=== PATIENT | male | born 1940 | race Caucasian/White ===

== ENCOUNTER 2024-10-16 02:06 | Emergency (ER) | payer MEDICARE, SELFPAY ==
[2024-10-16] VITALS (8 sets, daily range): BP systolic 109–175; BP diastolic 52–83; PULSE 70–82; RESP 8–16; TEMP 36.4; O2SAT 95–100; BMI 20.5
--- NOTE | 2024-10-16 03:12 | EDNOTE_ITS ---
Lower Extremity Injury RME/HPI General Chief Complaint: Extremity Injury, Lower Stated Complaint: LEG PAIN Time Seen by Provider: 10/16/24 03:11 Arrival date/time: 10/16/24 02:06 RME / HPI RME / HPI Narrative: Dr. Daugherty's Main ED Evaluation: 84yo male SAWYER from home presents to the ED for a chief complaint of a fall. Per EMS, patient was walking to the restroom when he slipped and fell just PRESS [employer]AR[employer], landing on his left side. Patient states he does not remember what happened, but endorses having left hip pain, a headache, neck pain, chest pain, and abdominal pain. He denies any N/V, blurred vision or any other associated symptoms. No known allergies. Patient states he had his messina catheter changed yesterday. PMHx: viral myocarditis, CAD s/p stent, HFrEF 30 to 35%, Parkinson's, traumatic ICH s/p craniotomy, history of GI bleeding, multiple skin cancer Related Data Home Medications ?Medication ?Instructions ?Recorded ?Confirmed rasagiline 1 mg tablet (Azilect) 1 mg PO QDAY 03/20/19 11/19/23 pantoprazole 40 mg tablet,delayed 40 mg PO QDAY 03/12/23 11/19/23 release carbidopa 37.5 mg-levodopa 150 See Rx Instructions .Route .COMPLEX 05/15/23 11/19/23 mg-entacapone 200 mg tablet donepezil 5 mg tablet 5 mg PO HS 05/15/23 11/19/23 finasteride 5 mg tablet 5 mg PO QDAY 05/15/23 11/19/23 clopidogrel 75 mg tablet (Plavix) 75 mg PO QDAY 10/26/23 11/19/23 tamsulosin 0.4 mg capsule (Flomax) 0.8 mg PO QDAY 10/26/23 11/19/23 sertraline 150 mg capsule 150 mg PO QDAY 11/19/23 11/19/23 Previous Rx's ?Medication ?Instructions ?Recorded aspirin 81 mg capsule 81 mg PO QDAY #30 caps 10/27/23 ferrous sulfate 325 mg (65 mg 325 mg PO QDAY #60 tabs 10/27/23 iron) tablet ondansetron HCl 4 mg tablet 4 mg PO Q8H PRN nausea and 10/27/23 vomiting #7 tabs Allergies Allergy/AdvReac Type Severity Reaction Status Date / Time No Known Allergies Allergy Verified 11/17/23 20:33 Review of Systems Review of Systems Systems Reviewed: All systems reviewed, normal except as documented Narrative Review of Systems: Gen: No fever, no chills, no weight loss EYES: No discharge, no visual changes, no pain HEENT: No ear pain, no congestion, no sore throat, + neck pain PULM: No shortness of breath, no cough, no congestion CV: + chest pain, no dyspnea on exertion, no palpitations GI: No nausea, no vomiting, no diarrhea, + pain, no constipation : No frequency, no urgency, no dysuria Musc/skel: + hip pain, no back pain Skin: No rash. Warm and dry. Psyc: No hallucinations, no depression Heme/Lymph: No easy bleeding or bruising tendencies Neuro: No weakness, + headache Past Medical History Past Medical History NEUROLOGIC: Positive Neurological Disorders, Cerebrovascular Accident, Parkinson's Disease and Head Trauma; Negative Seizures CARDIAC: Positive Cardiac Disorders, Hypercholesterolemia, Congestive Heart Failure and Hypertension RESPIRATORY: Negative Chronic Obstructive Pulmonary Disease (COPD), Asthma or Sleep Apnea GASTROINTESTINAL: Positive Gastrointestinal Disorders and Gastroesophageal Reflux Disease GENITOURINARY: Positive Benign Prostatic Hyperplasia; Negative Genitourinary Disorders or Renal Disease MUSCULOSKELETAL: Positive Musculoskeletal Disorders and Arthritis ENT: Positive Deafness and Head Trauma ENDOCRINE: Negative Endocrine Disorders, Diabetes Mellitus Type 1 or Diabetes Mellitus Type 2 HEMATOLOGIC: Positive Anemia; Negative Blood Disorders OTHER HISTORY: Positive Hospitalization, Falls, Blood Transfusions, Chicken Pox and Measles; Negative Autoimmune Disease, Blood Transfusion Reaction, Anesthesia Reactions or Cancer Family History FAMILY HISTORY: Positive Family Cardiac Disorders and Family Cancer; Negative Family Psychiatric Problems, Family Respiratory Disorders, Family Gastrointestinal Problems, Family Surgery or Family Anesthesia Reaction Surgical History SURGICAL: Positive Coronary Stent, Tonsillectomy and Vasectomy; Negative Joint Replacement Social History SMOKING STATUS: Never smoker SECOND HAND EXPOSURE: No SUBSTANCE USE: does not use ED Exam Narrative Physical exam: GEN. APPEARANCE: Patient is awake and alert, but has significant memory loss and does not remember that he fell just prior to arrival. VITALS: All vitals were reviewed and the pulse ox is 99% via 2L/nasal cannula, which is normal according to my interpretation. HEENT: Normocephalic and nontender. Significant memory loss to the left upper and lower eyelids. Left sclera is injected. Pupils are equal to 3 mm and reactive to light and accommodation. No nystagmus. Oral mucosa are moist. Patient has good jaw mobility and strength. NECK: Supple, nontender, no meningismus, no JVD. CHEST: Nontender on palpation, no deformity and no crepitus. CARDIOVASCULAR: Heart regular rhythm no murmur or gallop rub or extra beats; not tachycardic. LUNGS: Clear to auscultation bilaterally with symmetrical chest rise. No laboring tachypnea or wheezing. No intercostal subcostal retraction. No rales and no rhonchi. ABDOMEN: Soft, flat, nontender at all, no guarding or rebound tenderness. There are no abnormal masses palpated. No pulsatile masses or bruits. Active and normal bowel sounds. GENITALIA: Not examined. RECTAL EXAM: Not done. EXTREMITIES: Nontender. No edema. No cyanosis. There's moderate swelling on the lateral aspect of the left hip with shortening and external rotation of the LLE. N/V is intact. He cannot bend his knee. SKIN: Warm and dry, no rashes noted. MUSCULOSKELETAL: No lumbar or midline bony tenderness. There is no CVA tendern ess. No paraspinal muscle spasm or tenderness. NEURO: Cranial nerves II through XII grossly intact. There is no focalization. GCS is 14. PSYCHIATRIC: Patient is in normal mood and affect, cooperative. LYMPHATICS: No major lymphadenopathy noted. Course Quality Measures none Orders Category Date Time Status EKG (ED ONLY) *Do not use* NOW Care 10/16/24 04:39 Completed IV [Insert IV] NOW Care 10/16/24 03:[address] cervical spine wo con Stat Exams 10/16/24 03:[address] facial bones wo con Stat Exams 10/16/24 03:[address] head/brain wo con Stat Exams 10/16/24 03:[address] hip LT wo con Stat Exams 10/16/24 03:49 Taken EKG (ED Only) Stat Exams 10/16/24 04:39 Draft XR femur LT 2V Stat Exams 10/16/24 03:31 Taken XR hip LT w pelvis 2-3V Stat Exams 10/16/24 03:27 Taken CBC Stat Lab 10/16/24 04:27 Completed CMP [Comprehensive Metabolic Panel] Stat Lab 10/16/24 04:27 Completed PT [Prothrombin Time with INR] Stat Lab 10/16/24 04:27 Completed PTT [Partial Thromboplastin Time] Stat Lab 10/16/24 04:27 Completed Type and Screen Stat Lab 10/16/24 04:27 Received Morphine Inj Med 10/16/24 03:33 Discontinued 5 mg IVP X1 ONE Ondansetron Odt [Zofran Odt] Med 10/16/24 03:33 Discontinued 4 mg PO X1 ONE Tranexamic Acid 1,000 mg Ivpb [Tranexamic Acid Ivpb] Med 10/16/24 04:58 Discontinued 1,000 mg in 100 ml IV [id number] levETIRAcetam INJ [Keppra Inj] Med 10/16/24 04:53 Discontinued 1,000 mg IVP X1 ONE Vital Signs Vital signs: Vital Signs Temperature 97.6 F 10/16/24 02:19 Pulse Rate 82 10/16/24 02:19 Respiratory Rate 16 10/16/24 02:19 Blood Pressure 175/64 H 10/16/24 02:19 Pulse Oximetry (%) 99 10/16/24 02:19 Oxygen Delivery Method Nasal Cannula 10/16/24 02:19 Oxygen Flow Rate 2 10/16/24 02:19 Procedures -ED EKG Interpretation #1: Date of EK10/16/24 Rate: 79 Interpretation: Interpreted by me EKG Impression: Normal sinus rhythm, Reserve deviation, No ectopy and Normal intervals Additional EKG comment: Left axis deviation. First-degree AV block. Left bundle branch block. Extremity Injury, Lower MDM Narrative MDM Narrative:: Scribe Attestation: 10/16/24 - Joya Currie am scribing for and in the presence of Dr. Daugherty. Patient was brought in by ambulance from home per request of his who called the ambulance stating that he was found on the floor at his house and unable to get up. Patient apparently got up to go to the bathroom and fell but he cannot recall of the fall. 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 He only complains of left hip pain which started just prior to arrival. He is not aware that he has a big black and blue around his left orbital area and he does not complain of any pain at that area. He denies any blurred vision. On the physical exam he has significant injection of his left sclera with ecchymosis of his left upper and lower eyelids with soft tissue swelling but no lacerations and no deformities. He complains of headache and neck pain and chest pain and abdominal pain however when I touch his chest or abdomen he has no tenderness whatsoever. He denies any nausea vomiting and he denies any shortness of breath or coughing. He has a Messina catheter in due to significant BPH. He has no back pain. His main complaint is pain in his left hip which has significant local swelling on the lateral aspect and tenderness on palpation. He is unable to raise his left lower extremity at at all. His left lower extremity is shortened and externally rotated with normal neurovascular status. At 4:40 AM I looked at his CAT scan of the brain and it shows that he is got a right subdural and intraparenchymal hematoma with possible fracture of the skull according to my interpretation. There is no midline shift. Patient will be transferred to higher level of care immediately. His x-rays of the left hip showed that he has a fracture of the femoral neck with moderate displacement according to my interpretation. At 4:50 AM, I discussed this case with Dr. Vega, neurosurgeon at [facility], who accepts the transfer. He is CT scan of the C-spine is negative according to telemetry radiologist and the CT scan of his maxillofacial shows displaced bilateral nasal bone fractures. Provider Notation: Although this document has been carefully reviewed, there may still be some phonetic and other typographical errors. These errors are purely grammatical due to imperfections in the software program and should not be cons trued in any way to compromise the substance of the patient's medical care during this visit. Patient data External records reviewed:: [facility] previous records (Per chart review, patient was seen and admitted here on 11/18/23 for acute pyelonephritis and sepsis.) Clinical information provided by:: patient Social determinants that could affect healthcare access:: none Patient has the following chronic illnesses:: viral myocarditis, CAD s/p stent, HFrEF 30 to 35%, Parkinson's, traumatic ICH s/p craniotomy, history of GI bleeding, multiple skin cancer How is presenting disease/condition affected by chronic disease/condition?: uneffected by Evaluation data The following diagnostics were reviewed and interpreted by me:: lab results and radiology exam(s) Lab and/or radiology exams considered but not ordered:: none Interpretation Summary: See above under MDM narrative. ------ [employer] Preliminary Report Draft Patient: DIOR MORENO [facility]. Record#: [id number] Birthdate: 1940 Age/Sex: 84 / M Location: [facility] Attending Dr: Ordering Physician: Date of Service: Procedure(s): Accession Number(s): cc: ~ CT scan of the cervical spine without intravenous contrast (axial sections with sagittal and coronal reformats) October 16, 2024 0406 hours Clinical History: Fall. Compared with the prior study dated. Findings: The bones are osteopenic. There is no fracture or traumatic subluxation. Degenerative changes are noted in the form of multilevel marginal osteophytes, decreased disc spaces and facet arthropathy. The prevertebral soft tissues are unremarkable. Vascular calcification are noted. Degenerative changes are noted at the right temporomandibular joint. Impression: No evidence of fracture or traumatic subluxation. Other findings as described above. Report Electronically Signed By: Morgan Eli 10/16/2024 4:37:18 AM [EST] ------ [employer] Preliminary Report Draft Patient: DIOR MORENO [facility]. Record#: [id number] Birthdate: 1940 Age/Sex: 84 / M Location: [facility] Attending Dr: Ordering Physician: Date of Service: Procedure(s): Accession Number(s): cc: ~ CT maxillofacial without intravenous contrast (axial sections with sagittal and coronal reformats). October 16, 2024 0408 hours Clinical History: Fall. No prior study is available for comparison. Findings: There are acute displaced bilateral nasal bone fractures with adjacent soft tissue swelling. The maxillary sinus and orbital wisdom are intact. No fluid levels are seen. No evidence of intraorbital hematoma, proptosis, globe injury or radiodense foreign body. The zygomatic arches and mandible are intact. There is mild mucosal thickening in the bilateral ethmoid sinuses. Impression: Acute displaced bilateral nasal bone fractures. Report Electronically Signed By: Morgan Eli 10/16/2024 4:53:37 AM [EST] -------- [employer] Preliminary Report Draft Patient: DIOR MORENO [facility]. Record#: [id number] Birthdate: 1940 Age/Sex: 84 / M Location: [facility] Attending Dr: Ordering Physician: Date of Service: Procedure(s): Accession Number(s): cc: ~ CT scan of the head without intravenous contrast (axial sections with sagittal and coronal reformats) October 16, 2024 at 0404 hours Clinical History: Fall. Comparison: Compared with the prior study dated April 03, 2023 Findings: There is an acute subarachnoid hemorrhage in the right parietal sulci, temporal sulci and right sylvian fissure, new since the prior examination.There is an acute subdural hematoma along the right temporal and parietal convexity, new since the prior examination (axial images 21-33).There is no evidence of mass effect or midline shift. There are periventricular white matter hypodensities, compatible with chronic small vessel ischemia. There is volume loss. There is a right frontoparietal craniotomy. There is small hematoma in the left parietal scalp. The mastoid air cells and the visualized paranasal sinuses are clear. Impression: 1. Acute subarachnoid hemorrhage in the right parietal sulci, temporal sulci and right sylvian fissure. No midline shift or calvarial fracture. 2. Acute subdural hematoma along the right temporal and parietal convexity. 3. Small hematoma in the left parietal scalp. 4. Periventricular chronic small vessel ischemia and volume loss. Report Electronically Signed By: Morgan Eli 10/16/2024 5:17:57 AM [EST] Medications / Prescriptions Medications or Prescriptions considered but not ordered:: none Medication administrations:: Medication Administration History Discontinued Medications Tranexamic Acid (Tranexamic Acid Ivpb) 1,000 mg in 100 mls @ 200 mls/hr IV [id number] ONE Stop: 10/16/24 05:27 Last Admin: 10/16/24 05:01 Dose: 200 mls/hr Documented By: AYDEE Levetiracetam (Levetiracetam Inj 100 Mg/Ml Vial 5ml) 1,000 mg IVP X1 ONE Stop: 10/16/24 04:54 Last Admin: 10/16/24 05:03 Dose: 1,000 mg Documented By: AYDEE Morphine Sulfate (Morphine Sulf Inj 10 Mg/Ml Vial) 5 mg IVP X1 ONE Stop: 10/16/24 03:34 Last Admin: 10/16/24 03:47 Dose: 5 mg Documented By: CLT Ondansetron HCl (Ondansetron Odt 4 Mg Tabrap) 4 mg PO X1 ONE; Protocol Stop: 10/16/24 03:34 Last Admin: 10/16/24 03:48 Dose: 4 mg Documented By: CLT see above, if any Consultations Consultation(s) initiated? (list below): Yes Diagnosis Extremity Injury, Lower Differential Diagnosis: fracture of femur (left), fracture of hip (left) and other (ICH, fracture of facial bones, cervical fracture, left hip dislocation) Most likely diagnosis given after review of the tests above:: see below Admission Indicated Admission indicated?: not indicated Explain why admission is indicated or not indicated:: Patient requires a higher [id number]. Admission Request Was there a request for admission?: No Disposition Plan Disposition Plan: Transfer Critical Care Time Critical Care Time Critical Care Time: Yes Total Critical Care Time (min.): 60 Attestation: The high probability of sudden, clinically significant deterioration in the patient?s condition required the highest level of my preparedness to intervene urgently. The services I provided to this patient were to treat and/or prevent clinically significant deterioration. Services included the following: chart data review, reviewing nursing notes and/or old charts, documentation time, sephora product consultant collaboration regarding findings and treatment options, medication orders and management, direct patient care, vital sign assessments and ordering, interpreting and reviewing diagnostic studies and lab tests. Aggregate critical care time includes only time during which I was engaged in work directly related to the patient?s care, as described above, whether at bedside or elsewhere in the Emergency Department. It did not include time spent performing other reported procedures or the services of residents, students, nurses or physician assistants. Discharge Plan Plan Patient Disposition: Xfer Acute Care Fac Prescriptions/Referrals Prescriptions/Med Rec: No Action rasagiline [Azilect] 1 mg Tablet 1 mg PO QDAY clopidogrel [Plavix] 75 mg Tablet 75 mg PO QDAY Hold Instructions: Resume on 10/27/23. follow up with pcp and resume tamsulosin [Flomax] 0.4 mg Capsule 0.8 mg PO QDAY ferrous sulfate 325 mg (65 mg iron) tablet 325 mg PO QDAY Qty: 60 0RF aspirin 81 mg capsule 81 mg PO QDAY Qty: 30 0RF ondansetron HCl 4 mg tablet 4 mg PO Q8H PRN (Reason: nausea and vomiting) Qty: 7 0RF sertraline 150 mg Capsule 150 mg PO QDAY pantoprazole 40 mg tablet,delayed release (DR/EC) 40 mg PO QDAY Patient Comments: TAKE 1 TABLET BY MOUTH EVERY DAY donepezil 5 mg Tablet 5 mg PO HS finasteride 5 mg Tablet 5 mg PO QDAY [id number] 37.5-150-200 mg Tablet See Rx Instructions .ROUTE .COMPLEX Rx Instructions: TAKE 1 TABLET FIVE TIMES DAILY Problem List Clinical Impression: Fall, Acute subdural hematoma, Closed fracture of neck of left femur, Parkinson disease Patient/Caregiver Discharge Instructions Print Language: Yakut Stand Alone Forms: Sarah Award Info., Patient Portal Info Letter
--- NOTE | 2024-10-16 03:27 | XR_ITS ---
Examination:Left hip AP, lateral, AP pelvis 3 views Technique: Hip AP lateral, AP pelvis, 3 views Exam date and time:October 16, 2024 0335 hrs. Indications: Patient fell today with injury to left hip, left hip pain Findings: Acute displaced fracture left femoral neck No hip dislocation Right hip bones of the pelvis intact Impression: Acute displaced fracture left femoral neck
--- NOTE | 2024-10-16 03:31 | XR_ITS ---
Examination: Left femur 2 views Technique one AP lateral left femur 2 views Exam date and time: October 16, 2024 0345 hrs. Indications: Patient fell today with injury to the left femur, left femur pain. Findings: Acute displaced fracture left femoral neck Shaft of the femur intact Impression: Acute displaced fracture left femoral neck
--- NOTE | 2024-10-16 03:32 | XR_ITS ---
Examination: CT maxillofacial, without intravenous contrast. 2-D sagittal reconstructions. 3-D reconstructions. Date and time of exam:October 16, 2024 0408 hrs. Indications: Patient fell 2 hours ago with injury to the face, facial pain CTDI: vol (mGy):17.0 DLP: (mGycm):383 Technique: Multiple axial images of maxillofacial region, 3.0 mm slice thickness. 2-D sagittal and coronal reconstructions. 3-D reconstructions. Low dose protocols were performed. One or more of the following dose reduction techniques were used; automated exposure control, adjustment of the mA and/or KV according to patient size, use of iterative reconstruction technique. Findings: Soft tissue forehead scalp swelling Frontal bone intact Orbital rims intact Bilateral nasal bone fractures which appear difficult to May 27, 2020, clinical correlation advised Maxilla mandible intact Impression: Bilateral nasal bone fractures which appear identical to the May 27, 2020 exam, clinical correlation advised.
--- NOTE | 2024-10-16 03:32 | XR_ITS ---
Examination: CT brain head without contrast. 2-D sagittal coronal reconstructions Date and time of exam:October 16, 2024 at 0404 hrs. Indications: Patient fell 2 hours ago with injury to the head, head pain CTDI: vol (mGy):50 DLP: (mGycm):1061 Technique: Multiple CT axial sections of the brain have been obtained, 5 mm slice thickness. Contrast has not been administered. 2-D sagittal, coronal reconstructions have been obtained Low dose protocols were performed. One or more of the following dose reduction techniques were used; automated exposure control, adjustment of the mA and/or KV according to patient size, use of iterative reconstruction technique. Findings: Extensive subarachnoid hemorrhage and hemorrhagic contusion involving the right cerebral hemisphere Acute subdural hematoma peripheral to the right temporal parietal convexity measuring up to 6 mm in thickness Ventricles are not enlarged No midline shift Right craniotomy defect Impression: Extensive subarachnoid hemorrhage and hemorrhagic contusion involving the right cerebral hemisphere Acute subdural hematoma peripheral to the right cerebral hemisphere without significant mass effect
--- NOTE | 2024-10-16 03:32 | XR_ITS ---
Examination: CT cervical spine without contrast 2-D sagittal reconstructions 2-D coronal reconstructions 3-D reconstructions. Exam date and time:October 16, 2024 at 0406 hrs. Indications: Patient fell 2 hours ago with injury to the neck, neck pain CTDI:vol (mGy) 11.96 DLP: (mGycm) 300 Technique: Multiple 2 mm axial sections of the cervical spine have been obtained. The coronal and sagittal reconstructions have been obtained. 3-D reconstructions have been obtained. Low dose protocols were performed. One or more of the following dose reduction techniques were used; automated exposure control, adjustment of the mA and/or KV according to patient size, use of iterative reconstruction technique. Findings: Axial sections demonstrate intact base of the skull. C1 exhibit satisfactory relationship to the odontoid. No acute cervical vertebral body fracture seen. Alignment posterior spinous processes satisfactory. Impression: No acute cervical fracture.
[2024-10-16] MEDS: MORPHINE SULF INJ 10 MG/ML VIAL 5 MG IVP (03:47)
[2024-10-16] MEDS: ONDANSETRON ODT 4 MG TABRAP PO (03:48)
--- NOTE | 2024-10-16 03:49 | XR_ITS ---
Examination: CT pelvis left hip, without contrast. 2-D sagittal reconstructions. 2-D coronal reconstructions. 3-D reconstructions. Date and time of exam:October 16, 2024 0410 hrs. Indications: Patient fell 2 hours ago with injury to the left hip, left hip pain CTDI: vol (mGy):8.83 DLP: (mGycm): 384 Technique: Multiple 1.25 mm axial sections of the left hip pelvis have been obtained. 2-D sagittal and coronal reconstructions have been obtained. 3-D reconstructions have been obtained. Low dose protocols were performed. One or more of the following dose reduction techniques were used; automated exposure control, adjustment of the mA and/or KV according to patient size, use of iterative reconstruction technique. Findings: Prominent osteopenia Acute displaced left femoral neck fracture coronal image 79 Partial visualization infrarenal abdominal aortic aneurysm measuring at least 3.9 cm No pelvic hematoma Right hip bones of the pelvis intact Impression: Acute displaced left femoral neck fracture Consider ultrasound abdominal aorta follow-up to compare with the CT abdomen study November 18, 2023
--- NOTE | 2024-10-16 04:37 | PRELIM_ITS ---
CT scan of the cervical spine without intravenous contrast (axial sections with sagittal and coronal reformats) October 16, 2024 0406 hours Clinical History: Fall. Compared with the prior study dated. Findings:The bones are osteopenic. There is no fracture or traumatic subluxation. Degenerative change s are noted in the form of multilevel marginal osteophytes, decreased disc spaces and facet arthropat hy. The prevertebral soft tissues are unremarkable. Vascular calcification are noted. Degenerative ch anges are noted at the right temporomandibular joint.Impression:No evidence of fracture or traumatic subluxation.Other findings as described above. Report Electronically Signed By: Morgan Eli 10/16/20 4:37:18 AM [EST]
--- NOTE | 2024-10-16 04:39 | EKG_ITS ---
[facility] Test Date: 2024-10-16 Pat Name: DIOR MORENO Department: Room: - Gender: Male Allergy Physician: : 1940 Requested By: Fletcher Daugherty Order Number: [id number] Reading MD: Fletcher Daugherty Measurements Intervals [place] Rate: 79 P: 63 AR: 220 QRS: -71 QRSD: 154 T: 75 QT: 412 QTc: 475 Interpretive Statements SINUS RHYTHM WITH FIRST DEGREE AV BLOCK MARKED LEFT AXIS DEVIATION [QRS AXIS < -30] POSSIBLE RIGHT VENTRICULAR CONDUCTION DELAY [RSR (QR) IN V1/V2] LEFT BUNDLE BRANCH BLOCK [120+ ms QRS DURATION, 80+ ms Q/S IN V1/V2, 85+ ms R IN I/aVL/V5/V6] Compared to ECG 09/01/2024 12:39:53 First degree AV block now present Left bundle-branch block now present Intraventricular conduction delay no longer present Left ventricular hypertrophy no longer present ST (T wave) deviation no longer present /store/S0/[id number]/[id number].pdf
--- NOTE | 2024-10-16 04:54 | PRELIM_ITS ---
CT maxillofacial without intravenous contrast (axial sections with sagittal and coronal reformats). N ovember 2023 0408 hours Clinical History: Fall. No prior study is available for comparison. Findi ngs:There are acute displaced bilateral nasal bone fractures with adjacent soft tissue swelling. The maxillary sinus and orbital wisdom are intact. No fluid levels are seen. No evidence of intraorbital h ematoma, proptosis, globe injury or radiodense foreign body. The zygomatic arches and mandible are in tact. There is mild mucosal thickening in the bilateral ethmoid sinuses. Impression:Acute displaced bilateral nasal bone fractures. Report Electronically Signed By: Morgan Eli 10/16/2024 4:53:37 AM [ EST]
[2024-10-16 04:55] LABS: Basophils % (Auto) 0 % (0-2.5); Eosinophils # (Auto) 0.1 Thou/mm3 (0.0-0.5); Eosinophils % (Auto) 2 % (0-10); Hematocrit 30.5 % (41.0-53.0); Hemoglobin 10.2 g/dL (13.5-16.0); Immature Granulocytes % (Auto) 0 % (0-0); Immature Granulocytes Auto 0.03 Thou/mm3 (0.00-0.00); Lymphocytes # (Auto) 0.6 Thou/mm3 (1.0-4.8); Lymphocytes % (Auto) 7 % (10-50); Mean Corpuscular HGB Conc 33.4 g/dl (31.0-37.0); Mean Corpuscular Hemoglobin 32.3 pg (25.0-35.0); Mean Corpuscular Volume 97 fL (80-100); Monocytes # (Auto) 0.6 Thou/mm3 (0.0-0.8); Monocytes % (Auto) 8 % (0-12); Neutrophils # (Auto) 6.9 Thou/mm3 (1.8-7.7); Neutrophils % (Auto) 83 % (37-80); Nucleated Red Blood Cell % 0 /100 WBC (0); Platelet Count 175 Thou/mm3 (140-440); RDW Standard Deviation 46.9 fL (35.1-43.9); Red Blood Count 3.16 Miln/mm3 (4.50-5.90); White Blood Count 8.3 Thou/mm3 (3.8-10.6)
[2024-10-16] MEDS: TRANEXAMIC ACID 1,000 MG IVPB 1,000 MG/100 ML BAG 200 MG IV (05:01)
[2024-10-16] MEDS: levETIRAcetam INJ 100 MG/ML VIAL 5ML 1000 MG IVP (05:03)
[2024-10-16 05:09] LABS: Partial Thromboplastin Time 27.3 Seconds (22.0-36.0); Prothrombin Time 10.5 Seconds (9.0-12.2)
--- NOTE | 2024-10-16 05:18 | PRELIM_ITS ---
CT scan of the head without intravenous contrast (axial sections with sagittal and coronal reformats) October 16, 2024 at 0404 hoursClinical History: Fall.Comparison: Compared with the prior study date d April 03, 2023Findings: There is an acute subarachnoid hemorrhage in the right parietal sulci, tempor al sulci and right sylvian fissure, new since the prior examination.There is an acute subdural hemato ma along the right temporal and parietal convexity, new since the prior examination (axial images 21- 33).There is no evidence of mass effect or midline shift. There are periventricular white matter hypo densities, compatible with chronic small vessel ischemia. There is volume loss. There is a right fron toparietal craniotomy. There is small hematoma in the left parietal scalp. The mastoid air cells and the visualized paranasal sinuses are clear.Impression:1. Acute subarachnoid hemorrhage in the right p arietal sulci, temporal sulci and right sylvian fissure. No midline shift or calvarial fracture.2. Ac [place] subdural hematoma along the right temporal and parietal convexity.3. Small hematoma in the left p arietal scalp.4. Periventricular chronic small vessel ischemia and volume loss. Report Electronically Signed By: Morgan Eli 10/16/2024 5:17:57 AM [EST]
[2024-10-16 05:24] LABS: Alanine Aminotransferase < 7 U/L (10-49); Albumin, Serum 4.1 gm/dL (3.4-4.8); Albumin/Globulin Ratio 1.8 (1.2-2.2); Alkaline Phosphatase 142 U/L (46-116); Anion Gap -3 (7-16); Aspartate Amino Transferase 18 U/L (0-34); BUN/Creatinine Ratio 32 Ratio (12-20); Bilirubin,Total 0.4 mg/dL (0.3-1.2); Blood Urea Nitrogen 42 mg/dL (9-23); Calcium 8.9 mg/dL (8.3-10.6); Calcium (Corrected) 8.9 mg/dL (8.5-10.1); Carbon Dioxide 29.3 mMol/L (20.0-31.0); Chloride 114 mMol/L (98-107); Creatinine (Component) 1.3 mg/dL (0.6-1.3); Estimated Creatinine Clearance 39.5 mL/min (>60); Globulin 2.3 gm/dL (2.3-3.5); Glucose 118 mg/dL (74-106); Osmolality,Calculated 290 (275-295); Potassium 4.3 mMol/L (3.4-5.1); Sodium 140 mMol/L (136-145); Total Protein 6.4 gm/dL (5.7-8.2); eGFR 55 See Note
--- NOTE | 2024-10-16 05:53 | PC.NURSE ---
0552, ACCEPTED TO [facility] BY , ER TO ER, REPORT #[id number], SPOKE TO DANIEL.
--- NOTE | 2024-10-16 05:54 | PRELIM_ITS ---
CT scan of the left hip without intravenous contrast (axial sections with sagittal and coronal reform ats): October 16, 2024 at 0410 hoursClinical History: Fall.Comparison: No prior study is available f or comparison.Findings:There is an acute impacted transcervical left femoral neck fracture.The bone d ensity and alignment are normal.The acetabulum, femoral head and neck are unremarkable. The hip joint spaces are maintained. The periarticular soft tissues are within normal limits. The sacroiliac joint s are unremarkable. There are multiple colonic diverticula without evidence of diverticulitis.The vis ualized soft tissues including pelvic viscera are unremarkable.Impression:Acute impacted transcervica l left femoral neck fracture. Report Electronically Signed By: Morgan Eli 10/16/2024 5:54:05 AM [EST ]
--- NOTE | 2024-10-16 06:20 | PC.NURSE ---
SBAR report given to Daphney from [facility]. all questions answered no questions at this time.
== END 2024-10-16 06:41 | disposition short-term general hospital (02) ==
PROVIDERS: Emergency Provider Emergency Medicine; PCP Family Medicine
DX: S06.6X0A Traumatic subarachnoid hemorrhage without loss of consciousness, initial encounter (principal); S06.5X0A Traumatic subdural hemorrhage without loss of consciousness, initial encounter; S72.002A Fracture of unspecified part of neck of left femur, initial encounter for closed fracture; S02.2XXA Fracture of nasal bones, initial encounter for closed fracture; S19.9XXA Unspecified injury of neck, initial encounter; G20.A1 Parkinson's disease without dyskinesia, without mention of fluctuations; I44.0 Atrioventricular block, first degree; I44.7 Left bundle-branch block, unspecified; I11.0 Hypertensive heart disease with heart failure; E78.00 Pure hypercholesterolemia, unspecified; I50.20 Unspecified systolic (congestive) heart failure; W01.0XXA Fall on same level from slipping, tripping and stumbling without subsequent striking against object, initial encounter; Y93.01 Activity, walking, marching and hiking; Z75.1 Person awaiting admission to adequate facility elsewhere
CPT/HCPCS: 36415; 70450; 70486; 72125; 73502; 73552; 73700; 80053; 85025; 85610; 85730; 86850; 86900; 86901; 93005; 96374; 99291; J1953; J2270; J3490; Q0162

== ENCOUNTER 2025-02-12 10:44 | Emergency (ER) | payer MEDICARE, SELFPAY ==
[2025-02-12 11:04] VITALS: BP 153/66; PULSE 73; RESP 20; TEMP 36.6; O2SAT 97; BMI 19.2
--- NOTE | 2025-02-12 11:08 | EKG_ITS ---
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
--- NOTE | 2025-02-12 11:08 | XR_ITS ---
Examination: CT brain head without contrast. 2-D sagittal coronal reconstructions Date and time of exam:February 12, 2025 1156 hours Comparison October 16, 2024 INDICATIONS: Patient fell today with injury to the head, head pain CTDI: vol (mGy):48.8 DLP: (mGycm):1000 Technique: Multiple CT axial sections of the brain have been obtained, 5 mm slice thickness. Contrast has not been administered. 2-D sagittal, coronal reconstructions have been obtained Low dose protocols were performed. One or more of the following dose reduction techniques were used; automated exposure control, adjustment of the mA and/or KV according to patient size, use of iterative reconstruction technique. Findings: Mild ventricular enlargement. Intra-axial or extra-axial hemorrhage density is not seen. No mass effect or midline shift Basal cisterns are not remarkable. Fourth ventricle is midline. Right frontal craniotomy defect Impression: No interval acute hemorrhage, mass effect or midline shift
--- NOTE | 2025-02-12 11:09 | XR_ITS ---
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
--- NOTE | 2025-02-12 11:09 | XR_ITS ---
Examination: CT cervical spine without contrast 2-D sagittal reconstructions 2-D coronal reconstructions 3-D reconstructions. Exam date and time:February 12, 2025 1136 hours INDICATIONS: Patient fell today with injury to the neck, neck pain CTDI:vol (mGy) 7.01 DLP: (mGycm) 177 Technique: Multiple 2 mm axial sections of the cervical spine have been obtained. The coronal and sagittal reconstructions have been obtained. 3-D reconstructions have been obtained. Low dose protocols were performed. One or more of the following dose reduction techniques were used; automated exposure control, adjustment of the mA and/or KV according to patient size, use of iterative reconstruction technique. Findings: Axial sections demonstrate intact base of the skull. C1 exhibit satisfactory relationship to the odontoid. No acute cervical vertebral body fracture seen. Alignment posterior spinous processes satisfactory. Impression: No acute cervical fracture.
--- NOTE | 2025-02-12 11:09 | PD.EDRME ---
Rapid Medical Screening Exam RME Arrival date/time: 02/12/25 10:44 84-year-old male presents to the emergency department today with for reports the patient had a fall last night Chief Complaint: Head Injury Time Seen by Provider: 02/12/25 11:02
[2025-02-12 12:03] LABS: Basophils % (Auto) 0 % (0-2.5); Eosinophils # (Auto) 0.1 Thou/mm3 (0.0-0.5); Eosinophils % (Auto) 2 % (0-10); Hematocrit 32.2 % (41.0-53.0); Hemoglobin 10.6 g/dL (13.5-16.0); Immature Granulocytes % (Auto) 0 % (0-0); Immature Granulocytes Auto 0.02 Thou/mm3 (0.00-0.00); Lymphocytes # (Auto) 0.6 Thou/mm3 (1.0-4.8); Lymphocytes % (Auto) 10 % (10-50); Mean Corpuscular HGB Conc 32.9 g/dl (31.0-37.0); Mean Corpuscular Hemoglobin 30.7 pg (25.0-35.0); Mean Corpuscular Volume 93 fL (80-100); Monocytes # (Auto) 0.3 Thou/mm3 (0.0-0.8); Monocytes % (Auto) 6 % (0-12); Neutrophils # (Auto) 4.7 Thou/mm3 (1.8-7.7); Neutrophils % (Auto) 82 % (37-80); Nucleated Red Blood Cell % 0 /100 WBC (0); Platelet Count 202 Thou/mm3 (140-440); RDW Standard Deviation 51.8 fL (35.1-43.9); Red Blood Count 3.45 Miln/mm3 (4.50-5.90); White Blood Count 5.8 Thou/mm3 (3.8-10.6)
[2025-02-12 12:41] LABS: B-Type Natriuretic Peptide 131 pg/mL (0-100)
[2025-02-12 12:48] LABS: Alanine Aminotransferase < 7 U/L (10-49); Albumin, Serum 4.3 gm/dL (3.4-4.8); Albumin/Globulin Ratio 1.7 (1.2-2.2); Alkaline Phosphatase 131 U/L (46-116); Anion Gap -8 (7-16); Aspartate Amino Transferase 11 U/L (0-34); BUN/Creatinine Ratio 18 Ratio (12-20); Bilirubin,Total 0.3 mg/dL (0.3-1.2); Blood Urea Nitrogen 22 mg/dL (9-23); Carbon Dioxide 31.6 mMol/L (20.0-31.0); Chloride 119 mMol/L (98-107); Creatinine (Component) 1.2 mg/dL (0.6-1.3); Estimated Creatinine Clearance 38.9 mL/min (>60); Globulin 2.5 gm/dL (2.3-3.5); Glucose 123 mg/dL (74-106); Osmolality,Calculated 289 (275-295); Potassium 3.6 mMol/L (3.4-5.1); Sodium 143 mMol/L (136-145); Total Protein 6.8 gm/dL (5.7-8.2); Troponin I 0.038 ng/mL (0.0-0.045); eGFR > 60 See Note
[2025-02-12 14:16] LABS: Partial Thromboplastin Time 28.4 Seconds (22.0-36.0); Prothrombin Time 10.7 Seconds (9.0-12.2)
--- NOTE | 2025-02-12 15:17 | PD.EDFALL ---
ED Fall Injury RME/HPI General Chief Complaint: Head Injury Stated Complaint: HEAD INJURY POST FALL GETTING OUT OF BEAD; [place] Time Seen by Provider: 02/12/25 11:02 Arrival date/time: 02/12/25 10:44 RME / HPI RME / HPI Narrative: 84-year-old male presents to the emergency department today with for reports the patient had a fall last night. Patient fell off the bed. Patient sustained abrasion skin tear to the left elbow area, abrasion to the left upper lobe. Denies any LOC denies any neck pain denies any chest pain back pain all pelvic pain patient is ambulatory. Related Data Home Medications ?Medication ?Instructions ?Recorded ?Confirmed rasagiline 1 mg tablet (Azilect) 1 mg PO QDAY 03/20/19 11/19/23 pantoprazole 40 mg tablet,delayed 40 mg PO QDAY 03/12/23 11/19/23 release carbidopa 37.5 mg-levodopa 150 See Rx Instructions .Route .COMPLEX 05/15/23 11/19/23 mg-entacapone 200 mg tablet donepezil 5 mg tablet 5 mg PO HS 05/15/23 11/19/23 finasteride 5 mg tablet 5 mg PO QDAY 05/15/23 11/19/23 clopidogrel 75 mg tablet (Plavix) 75 mg PO QDAY 10/26/23 11/19/23 tamsulosin 0.4 mg capsule (Flomax) 0.8 mg PO QDAY 10/26/23 11/19/23 sertraline 150 mg capsule 150 mg PO QDAY 11/19/23 11/19/23 Previous Rx's ?Medication ?Instructions ?Recorded aspirin 81 mg capsule 81 mg PO QDAY #30 caps 10/27/23 ferrous sulfate 325 mg (65 mg 325 mg PO QDAY #60 tabs 10/27/23 iron) tablet ondansetron HCl 4 mg tablet 4 mg PO Q8H PRN nausea and 10/27/23 vomiting #7 tabs cephalexin 500 mg capsule 500 mg PO Q8H 7 days #21 caps 02/12/25 Allergies Allergy/AdvReac Type Severity Reaction Status Date / Time No Known Allergies Allergy Verified 02/12/25 10:49 Review of Systems Review of Systems Narrative Review of Systems: Review of system reviewed and within normal limits except mentioned in HPI ED Exam Narrative Physical exam: VITAL SIGNS: Reviewed. GENERAL APPEARANCE: Alert and interactive, follows commands, no acute distress, HEAD AND FACE: Non-traumatic. ENT: PERRL, pink conjunctivitis, eyelid no trauma, Mucous membrane moist. NECK: Supple, nontender, no nuchal rigidity. CHEST: No tenderness, no crepitus, no paradoxical movement, no retractions. LUNGS: Clear, well ventilated, symmetric, no rales, no wheezing, no ronchi, no stridor, good breath sounds bilaterally. HEART: Regular rate, regular rhythm, no murmur, no gallops. ABDOMEN: Soft, positive bowel sounds, nondistended, no guarding, nontender, no rebound, no masses, RECTAL: Deferred. GENITAL: Deferred. NEUROLOGICAL: Gross motor function intact sensory function intact, Appropriate for age. MUSCULOSKELETAL: low back nontender, full range of motion. EXTREMITIES: Nontender, full range of motion. SKIN: Color pink, dry, no rash, 3 cm skin tear to the left elbow, abrasions to the left early LYMPHATICS: Deferred. Course Quality Measures none Orders Category Date Time Status EKG (ED ONLY) *Do not use* NOW Care 02/12/25 11:[address] cervical spine wo con Stat Exams 02/12/25 11:[address] head/brain wo con Stat Exams 02/12/25 11:08 Completed EKG (ED Only) Stat Exams 02/12/25 11:08 Draft XR hand comp LT min 3V Stat Exams 02/12/25 11:09 Completed B-Type Natriuretic Peptide Stat Lab 02/12/25 11:38 Completed CBC Stat Lab 02/12/25 11:38 Completed Comprehensive Metabolic Panel Stat Lab 02/12/25 11:38 Completed Partial Thromboplastin Time Stat Lab 02/12/25 11:38 Completed Prothrombin Time with INR Stat Lab 02/12/25 11:38 Completed Troponin I Stat Lab 02/12/25 11:38 Completed Type and Screen Stat Lab 02/12/25 11:38 Completed Urinalysis Stat Lab 02/12/25 11:08 Ordered cephALEXin [Keflex] Med 02/12/25 15:16 Once 500 mg PO X1 ONE Vital Signs Vital signs: Vital Signs Temperature 97.8 F 02/12/25 11:04 Pulse Rate 73 02/12/25 11:04 Respiratory Rate 20 02/12/25 11:04 Blood Pressure 153/66 H 02/12/25 11:04 Pulse Oximetry (%) 97 02/12/25 11:04 Oxygen Delivery Method Room Air 02/12/25 11:04 Fall [facility] Narrative [facility] Narrative:: 84-year-old male presents to the emergency department today with for reports the patient had a fall last night. Patient fell off the bed. Patient sustained abrasion skin tear to the left elbow area, abrasion to the left upper lobe. Denies any LOC denies any neck pain denies any chest pain back pain all pelvic pain patient is ambulatory. Patient is taking blood thinner, CT scan of the head came back unremarkable CT scan of the neck came back unremarkable the rest of the imaging and laboratory workup all came back normal. Results discussed with the patient and family. 1 cleansed with skin cleanser, sterile strip applied. Patient was given a dose of Keflex in the emergency room for prophylactic regarding abrasions and contusion hematoma to the left lower lobe Tetanus vaccination is up-to-date. Patient data External records reviewed:: None Clinical information provided by:: patient Social determinants that could affect healthcare access:: none Patient has the following chronic illnesses:: Parkinson dementia How is presenting disease/condition affected by chronic disease/condition?: no chronic disease Evaluation data The following diagnostics were reviewed and interpreted by me:: lab results and radiology exam(s) Lab and/or radiology exams considered but not ordered:: None Interpretation Summary: See results in MDM Medications / Prescriptions Medications or Prescriptions considered but not ordered:: None Medication administrations:: Medication Administration History Discontinued Medications Cephalexin HCl (Cephalexin 250 Mg Capsule) 500 mg PO X1 ONE Stop: 02/12/25 15:17 Keflex Consultations Consultation(s) initiated? (list below): No Diagnosis Fall Differential Diagnosis: syncope and concussion without loss of consciousness Most likely diagnosis given after review of the tests above:: Skin tear elbow, fall, abrasion left earlobe Admission Indicated Admission indicated?: not indicated Admission Request Was there a request for admission?: No Disposition Plan Disposition Plan: Discharge Discharge Attestation Discharge Attestation: The patient and all family members were given an opportunity to ask questions and understood the discharge instructions. Discharge instructions specifically effects, indications for sooner follow up or return to the emergency department, and the expected course of current diagnosis. Patient condition: Stable Discharge Plan Plan Patient Disposition: HOME (Self Care) Disposition Comment: Stable Prescriptions/Referrals Prescriptions/Med Rec: New cephalexin 500 mg capsule 500 mg PO Q8H 7 Days Qty: 21 0RF No Action rasagiline [Azilect] 1 mg Tablet 1 mg PO QDAY clopidogrel [Plavix] 75 mg Tablet 75 mg PO QDAY tamsulosin [Flomax] 0.4 mg Capsule 0.8 mg PO QDAY ferrous sulfate 325 mg (65 mg iron) tablet 325 mg PO QDAY Qty: 60 0RF aspirin 81 mg capsule 81 mg PO QDAY Qty: 30 0RF ondansetron HCl 4 mg tablet 4 mg PO Q8H PRN (Reason: nausea and vomiting) Qty: 7 0RF sertraline 150 mg Capsule 150 mg PO QDAY pantoprazole 40 mg tablet,delayed release (DR/EC) 40 mg PO QDAY Patient Comments: TAKE 1 TABLET BY MOUTH EVERY DAY donepezil 5 mg Tablet 5 mg PO HS finasteride 5 mg Tablet 5 mg PO QDAY [id number] 37.5-150-200 mg Tablet See Rx Instructions .ROUTE .COMPLEX Rx Instructions: TAKE 1 TABLET FIVE TIMES DAILY Referrals: No Primary/Family,Physician [Primary Care Provider] - In 1 week Problem List Clinical Impression: Skin tear of elbow without complication, Abrasion of ear, Fall Patient/Caregiver Discharge Instructions Discharge Activity: activity as tolerated Education Materials: ED Abrasions Additional Instructions: Thank you for the opportunity for serving you today. You are stable for discharged . You are advised to: Follow-up with your PCP in 1 to 2 days Return to ED for worsening of symptoms Increase oral fluids Take medication as prescribed Do not remove the Steri-Strips probably in 5 to 7 days Daily dressing with bacitracin as needed Print Language: Uzbek Stand Alone Forms: Sarah Award Info., Patient Portal Info Letter
[2025-02-12] MEDS: cephALEXin 250 MG CAPSULE 500 MG PO (15:30)
== END 2025-02-12 16:23 | disposition home or self-care (01) ==
PROVIDERS: Nurse Practitioner Primary Care; Emergency Provider Emergency Medicine
DX: S51.012A Laceration without foreign body of left elbow, initial encounter (principal); S00.412A Abrasion of left ear, initial encounter; S19.9XXA Unspecified injury of neck, initial encounter; S69.92XA Unspecified injury of left wrist, hand and finger(s), initial encounter; S09.90XA Unspecified injury of head, initial encounter; I45.89 Other specified conduction disorders; W06.XXXA Fall from bed, initial encounter
CPT/HCPCS: 36415; 70450; 72125; 73130; 80053; 81001; 83880; 84484; 85025; 85610; 85730; 86850; 86900; 86901; 93005; 99284; A9270

== ENCOUNTER 2025-04-01 19:23 | Emergency (ER) | payer MEDICARE, SELFPAY ==
[2025-04-01 19:24] VITALS: BMI 22.2
[2025-04-01 19:26] VITALS: BP 155/72; PULSE 66; RESP 18; TEMP 36.6; O2SAT 97
--- NOTE | 2025-04-01 19:30 | PD.EDADULT ---
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 Ambrosio?s Main ED Evaluation: 84yo male with a history of Parkinson's disease, CHF, HTN, HLD, BPH BIBA from home presents to the ED for concerns over his suprapubic catheter. Per EMS, patient's family sent the patient over for evaluation due to concerns over his suprapubic catheter possibly being pulled out. EMS endorsed the patient has been agitated for the last 4 days, reporting the patient attempted to pull out his catheter today. Family reported to EMS concerns over the balloon in the catheter being deflated, so they sent him over for evaluation. Patient does not have any medical complaints at this time. No fever, chills, N/V, abdominal pain, back pain or any other associated symptoms reported. No known allergies. Related Data Home Medications ?Medication ?Instructions ?Recorded ?Confirmed rasagiline 1 mg tablet (Azilect) 1 mg PO QDAY 03/20/19 11/19/23 pantoprazole 40 mg tablet,delayed 40 mg PO QDAY 03/12/23 11/19/23 release carbidopa 37.5 mg-levodopa 150 See Rx Instructions .Route .COMPLEX 05/15/23 11/19/23 mg-entacapone 200 mg tablet donepezil 5 mg tablet 5 mg PO HS 05/15/23 11/19/23 finasteride 5 mg tablet 5 mg PO QDAY 05/15/23 11/19/23 clopidogrel 75 mg tablet (Plavix) 75 mg PO QDAY 10/26/23 11/19/23 tamsulosin 0.4 mg capsule (Flomax) 0.8 mg PO QDAY 10/26/23 11/19/23 sertraline 150 mg capsule 150 mg PO QDAY 11/19/23 11/19/23 Previous Rx's ?Medication ?Instructions ?Recorded aspirin 81 mg capsule 81 mg PO QDAY #30 caps 10/27/23 ferrous sulfate 325 mg (65 mg 325 mg PO QDAY #60 tabs 10/27/23 iron) tablet ondansetron HCl 4 mg tablet 4 mg PO Q8H PRN nausea and 10/27/23 vomiting #7 tabs cefuroxime axetil 250 mg tablet 250 mg PO BID Urinary tract 04/01/25 infection 7 days #14 tabs lorazepam 0.5 mg tablet 0.5 mg PO BID PRN agitation #10 04/01/25 tabs Allergies Allergy/AdvReac Type Severity Reaction Status Date / Time No Known Allergies Allergy Verified 04/01/25 19:36 Review of Systems Review of Systems Systems Reviewed: All systems reviewed, normal except as documented Past Medical History Past Medical History NEUROLOGIC: Positive Neurological Disorders, Cerebrovascular Accident, Parkinson's Disease and Head Trauma; Negative Seizures CARDIAC: Positive Cardiac Disorders, Hypercholesterolemia, Congestive Heart Failure and Hypertension RESPIRATORY: Negative Chronic Obstructive Pulmonary Disease (COPD), Asthma or Sleep Apnea GASTROINTESTINAL: Positive Gastrointestinal Disorders and Gastroesophageal Reflux Disease GENITOURINARY: Positive Benign Prostatic Hyperplasia; Negative Genitourinary Disorders or Renal Disease MUSCULOSKELETAL: Positive Musculoskeletal Disorders and Arthritis ENT: Positive Deafness and Head Trauma ENDOCRINE: Negative Endocrine Disorders, Diabetes Mellitus Type 1 or Diabetes Mellitus Type 2 HEMATOLOGIC: Positive Anemia; Negative Blood Disorders OTHER HISTORY: Positive Hospitalization, Falls, Blood Transfusions, Chicken Pox and Measles; Negative Autoimmune Disease, Blood Transfusion Reaction, Anesthesia Reactions or Cancer Family History FAMILY HISTORY: Positive Family Cardiac Disorders and Family Cancer; Negative Family Psychiatric Problems, Family Respiratory Disorders, Family Gastrointestinal Problems, Family Surgery or Family Anesthesia Reaction Surgical History SURGICAL: Positive Coronary Stent, Tonsillectomy and Vasectomy; Negative Joint Replacement Social History SMOKING STATUS: Never smoker SECOND HAND EXPOSURE: No SUBSTANCE USE: does not use ED Exam Narrative Physical exam: GENERAL APPEARANCE: awake, alert, pleasantly demented, well-developed, well-nourished, no acute distress VITALS: All vitals were reviewed and the pulse ox is 97% on room air, which is normal according to my interpretation. HEENT: Normocephalic, atraumatic; pupils equal, round, reactive to light; EOMI; mucous membranes pink, moist; oropharynx clear NECK: Supple LUNGS: CTABL; no wheezes, no rales, no rhonchi HEART: Regular rate, regular rhythm; normal S1, S2; no murmurs ABDOMEN: non distended; normal BS; soft, no tenderness; indwelling suprapubic catheter in place BACK: no CVA tenderness EXTREMITIES: atraumatic; no edema NEUROLOGIC: awake; alert; pleasantly demented; cranial nerves II-XII grossly intact; no focal sensory or motor deficits PSYCHIATRIC: appropriate mood and affect SKIN: warm, dry, normal color; no rashes Course Quality Measures none Orders Category Date Time Status Miscellaneous Nursing Order NOW Care 04/01/25 19:30 Active XR abdomen 1V Stat Exams 04/01/25 20:01 Completed Urinalysis, C/S if Indicated Stat Lab 04/01/25 19:50 Completed Urine Culture Stat Lab 04/01/25 19:50 Received LORazepam [Ativan] Med 04/01/25 21:22 Discontinued 1 mg PO X1 ONE Vital Signs Vital signs: Vital Signs Temperature 97.9 F 04/01/25 19:26 Pulse Rate 66 04/01/25 19:26 Respiratory Rate 18 04/01/25 19:26 Blood Pressure 155/72 H 04/01/25 19:26 Pulse Oximetry (%) 97 04/01/25 19:26 Oxygen Delivery Method Room Air 04/01/25 19:26 Discharge Plan Plan Patient Disposition: HOME (Self Care) Discharge Disposition comment: Stable for discharge into 's care Patient condition on transfer: Stable Prescriptions/Referrals Prescriptions/Med Rec: New lorazepam 0.5 mg tablet 0.5 mg PO BID PRN (Reason: agitation) Qty: 10 0RF cefuroxime axetil 250 mg tablet 250 mg PO BID 7 Days Qty: 14 0RF No Action rasagiline [Azilect] 1 mg Tablet 1 mg PO QDAY clopidogrel [Plavix] 75 mg Tablet 75 mg PO QDAY tamsulosin [Flomax] 0.4 mg Capsule 0.8 mg PO QDAY ferrous sulfate 325 mg (65 mg iron) tablet 325 mg PO QDAY Qty: 60 0RF aspirin 81 mg capsule 81 mg PO QDAY Qty: 30 0RF ondansetron HCl 4 mg tablet 4 mg PO Q8H PRN (Reason: nausea and vomiting) Qty: 7 0RF sertraline 150 mg Capsule 150 mg PO QDAY pantoprazole 40 mg tablet,delayed release (DR/EC) 40 mg PO QDAY Patient Comments: TAKE 1 TABLET BY MOUTH EVERY DAY donepezil 5 mg Tablet 5 mg PO HS finasteride 5 mg Tablet 5 mg PO QDAY [id number] 37.5-150-200 mg Tablet See Rx Instructions .ROUTE .COMPLEX Rx Instructions: TAKE 1 TABLET FIVE TIMES DAILY Referrals: Mating,Narwhals, MD [Primary Care Provider] - In 1 week Problem List Clinical Impression: Urinary tract infection, Encounter for suprapubic catheter care Patient/Caregiver Discharge Instructions Discharge Activity: activity as tolerated Education Materials: ED Bladder Infection, Male (Adult) Additional Instructions: Please return to the emergency department if you have any worsening or any further medical problems and we will help you. Otherwise you should follow-up with your primary care doctor within the next several days Print Language: Jamaican Stand Alone Forms: Sarah Award Info., Patient Portal Info Letter MDM Narrative MDM hospital course (for use when minimal MDM required): Scribe Attestation: 04/01/25 - Kush, Joya Martinez am scribing for and in the presence of Dr. Ambrosio. 1950: Patient's at the bedside states the patient was tugging on his suprapubic catheter today and tore off one of the ports to the catheter. Upon further evaluation, patient's suprapubic catheter is in place, but when tugging on it, it came right out. Catheter is placed and is pending urinalysis. Abdominal x-ray was obtained to ensure the suprapubic catheter is in the appropriate position. As of 2121, there is yellow urine noted in the catheter bag. Patient is stable to be discharged home. is requesting for us to give the patient something to help him relax. I will send a prescription for Cefuroxime and Ativan to the patient's pharmacy. Clinical Information Provided by: patient, EMS and spouse Medical Records reviewed [facility] (Per chart review, patient was admitted here on 05/14/23 for acute urinary retention.) Meds/Rx considered, not ordered None Labs/Rad/Tests considered, not ordered None Chronic Illness/Social Conditions Explain: History of Parkinson's disease, CHF, HTN, HLD, BPH Labs Labs: Interpreted by [facility] Lab(s) Interpretation(s): UA is positive for a UTI, according to my interpretation. Imaging Imaging interpretation: Interpreted by [facility] Imaging Interpretation(s): [facility] Report Signed Patient: DIOR MORENO [facility]. Record#: [id number] Birthdate: 1940 Age/Sex: 84 / M Location: [facility] Attending Dr: Ordering Physician: Shaun Ambrosio MD Date of Service: 04/01/25 Procedure(s): XR abdomen 1V Accession Number(s): [id number] cc: Juan Antonio Lopez MD; Jani Henry MD; Shaun Ambrosio MD~ Examination: Abdomen AP single view Technique: AP portable supine abdomen, single view Exam date and time: April 01, 2025 at 2048 hours Comparison February 23, 2023 INDICATIONS: Post suprapubic catheter placement FINDINGS: Suprapubic catheter centrally positioned in the pelvis Heavy abdominal aortic calcification Moderate to large amounts of stool throughout the entire colon No free air. Prominent osteopenia Left hip bipolar hemiarthroplasty with satisfactory alignment IMPRESSION: Suprapubic catheter centrally positioned in the pelvis Dictated By: Juan Antonio Lopez MD Signed By: <Electronically signed by Juan Antonio Lopez MD in [facility]> 04/01/252112 Medication Administration(s) Medication Administration History Discontinued Medications Lorazepam (Lorazepam 0.5 Mg Tablet) 1 mg PO X1 ONE Stop: 04/01/25 21:23 Ativan Diagnosis Differential Diagnosis ED Complaint MDM: UTI, urosepsis, suprapubic catheter site trauma
[2025-04-01 19:37] VITALS: BP 158/70; PULSE 65; PULSE 97; RESP 16; TEMP 36.7; O2SAT 95; O2SAT 96
--- NOTE | 2025-04-01 20:01 | XR_ITS ---
Examination: Abdomen AP single view Technique: AP portable supine abdomen, single view Exam date and time: April 01, 2025 at 2048 hours Comparison February 23, 2023 INDICATIONS: Post suprapubic catheter placement FINDINGS: Suprapubic catheter centrally positioned in the pelvis Heavy abdominal aortic calcification Moderate to large amounts of stool throughout the entire colon No free air. Prominent osteopenia Left hip bipolar hemiarthroplasty with satisfactory alignment IMPRESSION: Suprapubic catheter centrally positioned in the pelvis
[2025-04-01 20:55] LABS: Collection Type, Urine Catheter
[2025-04-01 21:12] LABS: Bacteria,Urine 1+; Bilirubin,Urine Negative (Negative); Blood,Urine 1+ (Negative); Clarity,Urine Turbid (Clear/Hazy); Color,Urine Yellow (Lt Yel-Yel); Glucose, Urine Negative (Negative); Hyaline Casts,Urine 1 /hpf (0-1); Ketones,Urine Negative (Negative); Leukocyte Esterase,Urine Positive (Negative); Nitrite,Urine Negative (Negative); PH,Urine 6.5 (5.0-7.0); Protein,Urine Trace (Neg - Trace); RBC,Urine 57 /hpf (0-3); Squamous Epithelial Cell,Urine 1 /hpf (0-5); Urobilinogen,Urine Negative mg/dL (0.0-1.0); WBC,Urine 599 /hpf (0-5)
[2025-04-01 21:13] LABS: Culture Indicated,Urine Yes
[2025-04-01] MEDS: LORazepam 0.5 MG TABLET 1 MG PO (21:47)
[2025-04-01 22:18] VITALS: BP 140/76; PULSE 70; RESP 16; TEMP 37; O2SAT 98
== END 2025-04-01 22:20 | disposition home or self-care (01) ==
PROVIDERS: Emergency Provider Emergency Medicine; PCP Family Medicine
DX: N39.0 Urinary tract infection, site not specified (principal); I11.0 Hypertensive heart disease with heart failure; I50.9 Heart failure, unspecified; E78.5 Hyperlipidemia, unspecified; G20.A1 Parkinson's disease without dyskinesia, without mention of fluctuations
CPT/HCPCS: 51702; 74018; 81001; 87077; 87086; 87186; 99283; A9270

== ENCOUNTER 2025-05-02 23:17 | Inpatient (IN) | payer MEDICARE, SELFPAY ==
[2025-05-02 23:49] VITALS: PULSE 93; RESP 18; O2SAT 92
[2025-05-02 23:58] VITALS: O2SAT 96
[2025-05-03] VITALS (18 sets, daily range): BP systolic 106–142; BP diastolic 37–93; PULSE 60–77; RESP 15–19; TEMP 36.1–37.7; O2SAT 73–100; BMI 16.9
--- NOTE | 2025-05-03 00:12 | PD.EDMALE ---
ED Male Genitalurinary RME/HPI General Chief complaint: Urogenital-Male Stated complaint: BLOOD IN CATHETER Time Seen by Provider: 05/03/25 00:08 Arrival date/time: 05/02/25 23:17 RME / HPI RME / HPI Narrative: This section includes all my notes and documentations, including HPI, PE, and ED course. Chato Garcia MD HPI: 85 y/o male with Hx of Parkinson's Disease and Benign Prostatic Hyperplasia BIB caregiver presents with possible blood in the urine. Has suprapubic catheter. Patient lives at home with his and is cared for by a 24-hour home health service. Patient has been non-compliant with his medications. Uncertain about chest pain or shortness of breath. Uncertain about abdominal pain. No vomiting. Uncertain about rectal bleeding or tarry stools. No other complaints. ROS: All negative except as documented in HPI. Physical Exam: General: Alert. Persistent generalized tremors. Eyes: Conjunctivae and lids clear. ENT: No nasal congestion. Neck: Supple. Heart: RRR. Lungs: No respiratory distress. Good air movement. No significant rhonchi, wheezing, rales. Abdomen: Soft with no significant tenderness. Supra pubic catheter noted with no obvious gross hematuria. Normal bowel sounds. No distension. No rebound or guarding. Skin: Warm and dry. Neuro: Alert and oriented X 3. Rectal: Tarry stools noted. Guaiac positive. I reviewed EMS notes. I reviewed all diagnostic test results: Blood and urine tests remarkable for Hgb 6.7, Cr 2.5. Stool Occult Blood positive. At this point, diagnoses include: GI Bleed, Severe Anemia, and SHANTA. Treatment here included: Pepcid, Zofran, Protonix, and blood transfusion. 0113: I discussed the case with our GI specialist, Dr. Siddiqui. About the presentation and exam and diagnostics and treatments here. And need of further care in the hospital. Recommended admission to hospitalist service. I discussed the case with our hospitalist. About the presentation and exam and diagnostics and treatments here. And need of further care in the hospital. Recommended abdominal CT prior to admission. At 6 AM on 05/03/2025, the care of the patient was transferred to Dr. Harris. Chato Garcia MD Related Data Home Medications ?Medication ?Instructions ?Recorded ?Confirmed rasagiline 1 mg tablet (Azilect) 1 mg PO QDAY 03/20/19 11/19/23 pantoprazole 40 mg tablet,delayed 40 mg PO QDAY 03/12/23 11/19/23 release carbidopa 37.5 mg-levodopa 150 See Rx Instructions .Route .COMPLEX 05/15/23 11/19/23 mg-entacapone 200 mg tablet donepezil 5 mg tablet 5 mg PO HS 05/15/23 11/19/23 finasteride 5 mg tablet 5 mg PO QDAY 05/15/23 11/19/23 clopidogrel 75 mg tablet (Plavix) 75 mg PO QDAY 10/26/23 11/19/23 tamsulosin 0.4 mg capsule (Flomax) 0.8 mg PO QDAY 10/26/23 11/19/23 sertraline 150 mg capsule 150 mg PO QDAY 11/19/23 11/19/23 Previous Rx's ?Medication ?Instructions ?Recorded aspirin 81 mg capsule 81 mg PO QDAY #30 caps 10/27/23 ferrous sulfate 325 mg (65 mg 325 mg PO QDAY #60 tabs 10/27/23 iron) tablet ondansetron HCl 4 mg tablet 4 mg PO Q8H PRN nausea and 10/27/23 vomiting #7 tabs lorazepam 0.5 mg tablet 0.5 mg PO BID PRN agitation #10 04/01/25 tabs ciprofloxacin HCl 500 mg tablet 500 mg PO BID #14 tabs 04/16/25 Allergies Allergy/AdvReac Type Severity Reaction Status Date / Time No Known Allergies Allergy Verified 04/01/25 19:36 Review of Systems Review of Systems Systems Reviewed: All systems reviewed, normal except as documented Past Medical History Past Medical History NEUROLOGIC: Positive Neurological Disorders, Cerebrovascular Accident, Parkinson's Disease and Head Trauma CARDIAC: Positive Cardiac Disorders, Hypercholesterolemia, Congestive Heart Failure and Hypertension GASTROINTESTINAL: Positive Gastrointestinal Disorders and Gastroesophageal Reflux Disease GENITOURINARY: Positive Benign Prostatic Hyperplasia MUSCULOSKELETAL: Positive Musculoskeletal Disorders and Arthritis ENT: Positive Deafness and Head Trauma HEMATOLOGIC: Positive Anemia OTHER HISTORY: Positive Hospitalization, Falls, Blood Transfusions, Chicken Pox and Measles Family History FAMILY HISTORY: Positive Family Cancer Surgical History SURGICAL: Positive Coronary Stent, Tonsillectomy and Vasectomy ED Exam Narrative Physical exam: Refer to HPI above Course Quality Measures none Orders Category Date Time Status COVID-19 Screening Questionnaire NOW Care 05/03/25 02:[address] Screening NOW Care 05/03/25 01:16 Active Decision to Admit X1 Care 05/03/25 02:29 Active EKG (ED ONLY) *Do not use* NOW Care 05/03/25 01:16 Completed Saline [Insert IV] NOW Care 05/03/25 00:55 Active Transfuse,blood/blood products NOW Care 05/03/25 00:55 Active Consult to Gastroenterology Stat Cons 05/03/25 01:[address] chest abdomen pelvis wo Stat Exams 05/03/25 03:01 Ordered EKG (ED Only) Stat Exams 05/03/25 01:16 Ordered Amylase Stat Lab 05/03/25 00:17 Completed BNP [B-Type Natriuretic Peptide] Stat Lab 05/03/25 01:42 Completed Bilirubin,Direct Stat Lab 05/03/25 00:17 Completed CBC Stat Lab 05/03/25 00:17 Completed CMP [Comprehensive Metabolic Panel] Stat Lab 05/03/25 00:17 Completed CRP [C-Reactive Protein] Stat Lab 05/03/25 00:17 Completed D-Dimer Stat Lab 05/03/25 01:42 Completed ESR [Sed Rate (ESR)] Stat Lab 05/03/25 00:17 Completed Free T4 (Free Thyroxine) Stat Lab 05/03/25 00:17 Completed Lipase Stat Lab 05/03/25 00:17 Completed Magnesium Stat Lab 05/03/25 00:17 Completed Occult Blood, Stool (LAB) Stat Lab 05/03/25 01:10 Completed PT [Prothrombin Time with INR] Stat Lab 05/03/25 00:17 Completed PTT [Partial Thromboplastin Time] Stat Lab 05/03/25 00:17 Completed Path Review Blood Smear Stat Lab 05/03/25 00:17 Completed Procalcitonin Stat Lab 05/03/25 00:17 Completed TSH [Thyroid Stimulating Hormone] Stat Lab 05/03/25 00:17 Completed Troponin I Stat Lab 05/03/25 00:17 Completed Type and Screen Stat Lab 05/03/25 01:03 Results UA, C/S IF [Urinalysis, C/S if Indicated] Stat Lab 05/03/25 01:05 Completed Urine Culture Stat Lab 05/03/25 01:05 Received prbc [Red Blood Cells] Stat Lab 05/03/25 01:03 Results Famotidine Inj [Pepcid Inj] Med 05/03/25 01:15 Discontinued 20 mg IVP X1 ONE LORazepam [Ativan Inj] Med 05/03/25 03:25 Discontinued 2 mg IVP X1 ONE Ondansetron Inj [Zofran Inj] Med 05/03/25 01:15 Discontinued 4 mg IVP X1 ONE Pantoprazole Inj [Protonix Inj] Med 05/03/25 01:15 Discontinued 80 mg IVP X1 ONE Vital Signs Vital signs: Vital Signs Pulse Oximetry (%) 96 05/02/25 23:58 Procedures -ED Stool Hemoccult Procedural Steps Taken: stool placed in appropriate test area, developer placed on stool and control areas and controls appropriately positive and negative Hemoccult result: positive Urogenital - Male MDM Narrative MDM Narrative:: Scribe Attestation: Yanet Currie, david scribing for and in the presence of Dr. Garcia. Provider Notation: Although this document has been carefully reviewed, there may still be some phonetic and other typographical errors.? These errors are purely grammatical due to imperfections in the software program and should not be construed in any way to? compromise the substance of the patient's medical care during this visit. 85 y/o male with Hx of Parkinson's Disease and Benign Prostatic Hyperplasia BIB caregiver presents with blood in his urine x just [employer]ESSION[employer]. Patient has a suprapubic catheter. Patient lives at home with his and is cared for by a 24-hour home health service. Patient has been non-compliant with his medication. No other complaints. Patient data External records reviewed:: [facility] previous records (Reviewed prior ED records from 04/01/25. 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 Social determinants that could affect healthcare access:: mental health Patient has the following chronic illnesses:: Anemia, Cerebrovascular Accident, Parkinson's Disease, Head Trauma, Hypercholesterolemia, Congestive Heart Failure, Hypertension, Gastroesophageal Reflux Disease, Benign Prostatic Hyperplasia, Arthritis, Deafness How is presenting disease/condition affected by chronic disease/condition?: exacerbated by Evaluation data The following diagnostics were reviewed and interpreted by me:: lab results and radiology exam(s) Lab and/or radiology exams considered but not ordered:: None Interpretation Summary: I reviewed all diagnostic test results: Blood and urine tests remarkable for Hgb 6.7, Cr 2.5. Stool Occult Blood positive. Medications / Prescriptions Medications or Prescriptions considered but not ordered:: None Medication administrations:: Medication Administration History Discontinued Medications Famotidine (Famotidine Inj 10 Mg/Ml Vial 2 Ml) 20 mg IVP X1 ONE Stop: 05/03/25 01:16 Last Admin: 05/03/25 01:30 Dose: 20 mg Documented By: AIDEN Lorazepam (Lorazepam 2 Mg/Ml Vial) 2 mg IVP X1 ONE Stop: 05/03/25 03:26 Ondansetron HCl (Ondansetron Inj 2 Mg/Ml Inj 2 Ml) 4 mg IVP X1 ONE; Protocol Stop: 05/03/25 01:16 Last Admin: 05/03/25 01:30 Dose: 4 mg Documented By: AIDEN Pantoprazole Sodium (Pantoprazole Inj 40 Mg Vial) 80 mg IVP X1 ONE Stop: 05/03/25 01:16 Last Admin: 05/03/25 01:30 Dose: 80 mg Documented By: AIDEN Pepcid, Zofran, Protonix, and blood transfusion. Consultations Consultation(s) initiated? (list below): Yes Consultation #1 (Physician, Specialty, Details): I discussed the case with our GI specialist, Dr. Siddiqui. About the presentation and exam and diagnostics and treatments here. And need of further care in the hospital. Recommend admission to hospitalist service. Time: 01:13 Diagnosis Urogenital Male Differential Diagnosis: urinary tract infection, urethritis, epididymitis, prostatitis, acute retention of urine, inguinal hernia and other (GI bleed) Most likely diagnosis given after review of the tests above:: GI Bleed, Severe Anemia, and SHANTA. Admission Indicated Admission indicated?: not indicated Explain why admission is indicated or not indicated:: I discussed the case with our hospitalist. About the presentation and exam and diagnostics and treatments here. And need of further care in the hospital. Recommended abdominal CT prior to admission. Admission Request Was there a request for admission?: Yes Disposition Plan Disposition Plan: other (specify) (Signed out to Dr. Harris at 6 AM.) Discharge Plan Prescriptions/Referrals Prescriptions/Med Rec: No Action rasagiline [Azilect] 1 mg Tablet 1 mg PO QDAY clopidogrel [Plavix] 75 mg Tablet 75 mg PO QDAY tamsulosin [Flomax] 0.4 mg Capsule 0.8 mg PO QDAY ferrous sulfate 325 mg (65 mg iron) tablet 325 mg PO QDAY Qty: 60 0RF aspirin 81 mg capsule 81 mg PO QDAY Qty: 30 0RF ondansetron HCl 4 mg tablet 4 mg PO Q8H PRN (Reason: nausea and vomiting) Qty: 7 0RF sertraline 150 mg Capsule 150 mg PO QDAY lorazepam 0.5 mg tablet 0.5 mg PO BID PRN (Reason: agitation) Qty: 10 0RF ciprofloxacin HCl 500 mg tablet 500 mg PO BID Qty: 14 0RF pantoprazole 40 mg tablet,delayed release (DR/EC) 40 mg PO QDAY Patient Comments: TAKE 1 TABLET BY MOUTH EVERY DAY donepezil 5 mg Tablet 5 mg PO HS finasteride 5 mg Tablet 5 mg PO QDAY [id number] 37.5-150-200 mg Tablet See Rx Instructions .ROUTE .COMPLEX Rx Instructions: TAKE 1 TABLET FIVE TIMES DAILY Problem List Clinical Impression: GI bleed, Severe anemia, SHANTA (acute kidney injury) Patient/Caregiver Discharge Instructions Print Language: [place] Citizen
[2025-05-03 00:50] LABS: Basophils % (Auto) 0 % (0-2.5); Eosinophils % (Auto) 0 % (0-10); Immature Granulocytes % (Auto) 0 % (0-0); Immature Granulocytes Auto 0.03 Thou/mm3 (0.00-0.00); Lymphocytes # (Auto) 0.5 Thou/mm3 (1.0-4.8); Lymphocytes % (Auto) 6 % (10-50); Mean Corpuscular HGB Conc 35.3 g/dl (31.0-37.0); Mean Corpuscular Volume 88 fL (80-100); Monocytes # (Auto) 0.8 Thou/mm3 (0.0-0.8); Monocytes % (Auto) 10 % (0-12); Neutrophils # (Auto) 6.5 Thou/mm3 (1.8-7.7); Neutrophils % (Auto) 83 % (37-80); Nucleated Red Blood Cell % 0 /100 WBC (0); Platelet Count 252 Thou/mm3 (140-440); Red Blood Count 2.16 Miln/mm3 (4.50-5.90); White Blood Count 7.8 Thou/mm3 (3.8-10.6)
[2025-05-03 00:54] LABS: Hemoglobin 6.7 g/dL (13.5-16.0)
[2025-05-03 01:00] LABS: Path Review Blood Smear Sent to Pathologist; Sed Rate (ESR) 14 mm/hr (0-20)
[2025-05-03 01:18] LABS: OBS Performed By COOPA1; OBS QC OK? Yes; Occult Blood, Stool Positive (Negative)
[2025-05-03 01:18] LABS: Collection Type, Urine Clean Catch; RBC,Urine 0 /hpf (0-3); Squamous Epithelial Cell,Urine 0 /hpf (0-5); WBC,Urine 0 /hpf (0-5)
[2025-05-03 01:23] LABS: Alanine Aminotransferase < 7 U/L (10-49); Albumin, Serum 3.7 gm/dL (3.4-4.8); Albumin/Globulin Ratio 1.8 (1.2-2.2); Alkaline Phosphatase 85 U/L (46-116); Anion Gap -21 (7-16); BUN/Creatinine Ratio 22 Ratio (12-20); Bilirubin,Direct < 0.1 mg/dL (0.0-0.3); Bilirubin,Total 0.3 mg/dL (0.3-1.2); Blood Urea Nitrogen 55 mg/dL (9-23); C-Reactive Protein 4.2 mg/dL (0.0-0.9); Calcium 8.3 mg/dL (8.3-10.6); Calcium (Corrected) 8.5 mg/dL (8.5-10.1); Creatinine (Component) 2.5 mg/dL (0.6-1.3); Globulin 2.1 gm/dL (2.3-3.5); Glucose 104 mg/dL (74-106); Magnesium 2.1 mg/dL (1.6-2.6); Osmolality,Calculated 307 (275-295); Potassium 3.5 mMol/L (3.4-5.1); Procalcitonin 0.09 ng/ml (0.0-0.49); Sodium 147 mMol/L (136-145); Total Protein 5.8 gm/dL (5.7-8.2); eGFR 25 See Note
[2025-05-03] MEDS: PANTOPRAZOLE INJ 40 MG VIAL 80 MG IVP (01:30)
[2025-05-03] MEDS: ONDANSETRON INJ 2 MG/ML INJ 2 ML 4 MG IVP (01:30)
[2025-05-03] MEDS: FAMOTIDINE INJ 10 MG/ML VIAL 2 ML 20 MG IVP (01:30)
[2025-05-03 01:31] LABS: Bilirubin,Urine 2+ (Negative); Blood,Urine 3+ (Negative); Clarity,Urine Clear (Clear/Hazy); Color,Urine Drk Orange (Lt Yel-Yel); Glucose, Urine Trace (Negative); Ketones,Urine Trace (Negative); Leukocyte Esterase,Urine 2+ (Negative); Nitrite,Urine Positive (Negative); PH,Urine 6.5 (5.0-7.0); Protein,Urine 3+ (Neg - Trace)
[2025-05-03 01:38] LABS: Culture Indicated,Urine Yes
[2025-05-03 01:40] LABS: INR 1.3 (0.9-1.3); Partial Thromboplastin Time 27.4 Seconds (22.0-36.0); Prothrombin Time 14.4 Seconds (9.0-12.2)
[2025-05-03 01:45] LABS: Chloride 141 mMol/L (98-107)
[2025-05-03 01:46] LABS: Amylase 50 U/L (30-118); Free T4 (Free Thyroxine) 0.73 ng/dL (0.89-1.76); Lipase 21 U/L (12-53); Thyroid Stimulating Hormone 2.26 uIU/mL (0.55-4.78); Troponin I 0.039 ng/mL (0.0-0.045)
[2025-05-03 02:29] LABS: D-Dimer 384 ng/mL (<600)
[2025-05-03 02:39] LABS: B-Type Natriuretic Peptide 127 pg/mL (0-100)
--- NOTE | 2025-05-03 03:01 | XR_ITS ---
Examination: CT chest, without intravenous contrast. CT abdomen, without intravenous contrast. CT pelvis, without intravenous contrast. 2-D sagittal and coronal reconstructions. 3-D reconstructions. Date and time of exam:May 03, 2025 0508 hours INDICATIONS: Onset chest and abdomen pain today CTDI vol (mgy) 11.4 DLP ([id number] Technique: Multiple CT images, 3.0 mm slice thickness, obtained chest, abdomen, pelvis, with the high-resolution 64 slice scanner.. Sagittal and coronal 2-D reconstructions are obtained. 3-D reconstructions Low dose protocols were performed. One or more of the following dose reduction techniques were used; automated exposure control, adjustment of the mA and/or KV according to patient size, use of iterative reconstruction technique. Findings: No thoracic aortic aneurysm dilatation Mild enlargement from pulmonary artery segments COPD with multiple areas of airspace destruction. No pathologic mediastinal lymphadenopathy, no pneumonia or pulmonary edema No focal liver or splenic lesions No definite gallstones Bilateral benign renal cysts No renal or ureteral calculi, no hydronephrosis Normal appendix Infrarenal abdominal aortic aneurysm AP dimension 3.7 cm mediolateral dimension 4.0 cm No free blood in the abdomen Colonic diverticulosis Large amounts of stool in the rectum with thickening of the rectal wall Suprapubic drainage tube Mild thickening of the urinary bladder wall Prominent osteopenia IMPRESSION: COPD No pneumonia or pulmonary edema Infrarenal abdominal aortic aneurysm, AP dimension 3.7 cm in mediolateral dimension and 4.0 cm Normal appendix Large amounts of stool in the rectum with thickening of the rectal wall, differential would include proctitis, recommend direct inspection Suprapubic drainage tube Cystitis pattern
--- NOTE | 2025-05-03 04:44 | PC.NURSE ---
POT HAS BEEN VERY RESTLESS FOR MOST OF THE NIGHT. REGISTERED NURSE CARDIOVASCULAR ICU HAS BEEN AT BEDSIDE. FIRST UNIT OF BLOOD IN [facility] NOW.
[2025-05-03] MEDS: LORazepam 2 MG/ML VIAL IVP (05:00)
--- NOTE | 2025-05-03 07:24 | PC.NURSE ---
SUPERPUBIC CATH NOT DRAINING. CATH FLUSED SEVERAL TIMES WITH NS AND LEG BAG REPLACED WITH TORRES BAG. CATH IS CURRENTLY DRAINING.
[2025-05-03 08:39] LABS: Lactate (Lactic Acid) 1.2 mMol/L (0.4-2.0)
--- NOTE | 2025-05-03 09:00 | EDNOTE_ITS ---
Emergency Room Addendum Addendum Narrative: 0600: Care assumed from , the previous shift emergency physician. Past medical, surgical, social and family history reviewed. Vitals and home medications reviewed. I will assume the care of the patient at this time, pending CT report for admission. Please refer to the emergency department record for history and examination from initial visit.?The following addendum documentation note is intended to reflect any pending information, findings, or radiology results not included in the patient?s initial chart. I reviewed chest/abdomen/pelvis CT and my interpretation is as follows: Main findings are enlarged liver, stool throughout, no obstruction, calcified aorta, no acute findings. 0753: I spoke with resident Dr. Bhardwaj working with Dr. Hale. Discussed patients PMHx, HPI, ED course, exam findings, labs, and my interpretation of radiology results. The hospitalist agree to accept the patient for admission. RADIOLOGY Ordering Physician: Chato Garcia MD Date of Service: 05/03/25 Procedure(s): CT chest abdomen pelvis wo Accession Number(s): [id number] cc: Chato Garcia MD; Juan Antonio Lopez MD; Jani Henry MD~ Examination: CT chest, without intravenous contrast. CT abdomen, without intravenous contrast. CT pelvis, without intravenous contrast. 2-D sagittal and coronal reconstructions. 3-D reconstructions. Date and time of exam:May 03, 2025 0508 hours INDICATIONS: Onset chest and abdomen pain today CTDI vol (mgy) 11.4 DLP ([id number] Technique: Multiple CT images, 3.0 mm slice thickness, obtained chest, abdomen, pelvis, with the high-resolution 64 slice scanner.. Sagittal and coronal 2-D reconstructions are obtained. 3-D reconstructions Low dose protocols were performed. One or more of the following dose reduction techniques were used; automated exposure control, adjustment of the mA and/or KV according to patient size, use of iterative reconstruction technique. Findings: No thoracic aortic aneurysm dilatation Mild enlargement from pulmonary artery segments COPD with multiple areas of airspace destruction. No pathologic mediastinal lymphadenopathy, no pneumonia or pulmonary edema No focal liver or splenic lesions No definite gallstones Bilateral benign renal cysts No renal or ureteral calculi, no hydronephrosis Normal appendix Infrarenal abdominal aortic aneurysm AP dimension 3.7 cm mediolateral dimension 4.0 cm No free blood in the abdomen Colonic diverticulosis Large amounts of stool in the rectum with thickening of the rectal wall Suprapubic drainage tube Mild thickening of the urinary bladder wall Prominent osteopenia IMPRESSION: COPD No pneumonia or pulmonary edema Infrarenal abdominal aortic aneurysm, AP dimension 3.7 cm in mediolateral dimension and 4.0 cm Normal appendix Large amounts of stool in the rectum with thickening of the rectal wall, differential would include proctitis, recommend direct inspection Suprapubic drainage tube Cystitis pattern Dictated By:Juan Antonio Lopez MD Signed By:<Electronically signed by Juan Antonio Lopez MD in [place]>05/03/25 0804
[2025-05-03] MEDS: cefTRIAXone 2 GM in SODIUM CHLORIDE 0.9% (Popper) 50 ML IV (09:32)
--- NOTE | 2025-05-03 09:32 | PC.NURSE ---
Patient changed and repositioned for comfort. Small black tarry BM noted in brief. Vital signs stable. Caregiver at bedside. Suprapubic catheter drainage dark urine.
[2025-05-03 10:21] LABS: Basophils % (Auto) 0 % (0-2.5); Eosinophils % (Auto) 0 % (0-10); Hematocrit 26.3 % (41.0-53.0); Hemoglobin 9.3 g/dL (13.5-16.0); Immature Granulocytes % (Auto) 0 % (0-0); Immature Granulocytes Auto 0.02 Thou/mm3 (0.00-0.00); Lymphocytes # (Auto) 0.8 Thou/mm3 (1.0-4.8); Lymphocytes % (Auto) 13 % (10-50); Mean Corpuscular HGB Conc 35.4 g/dl (31.0-37.0); Mean Corpuscular Hemoglobin 30.8 pg (25.0-35.0); Mean Corpuscular Volume 87 fL (80-100); Monocytes # (Auto) 0.7 Thou/mm3 (0.0-0.8); Monocytes % (Auto) 11 % (0-12); Neutrophils # (Auto) 4.5 Thou/mm3 (1.8-7.7); Neutrophils % (Auto) 75 % (37-80); Nucleated Red Blood Cell % 0 /100 WBC (0); Platelet Count 220 Thou/mm3 (140-440); RDW Standard Deviation 47.3 fL (35.1-43.9); Red Blood Count 3.02 Miln/mm3 (4.50-5.90); White Blood Count 6.1 Thou/mm3 (3.8-10.6)
[2025-05-03 10:36] LABS: Albumin, Serum 3.6 gm/dL (3.4-4.8); Anion Gap -25 (7-16); BUN/Creatinine Ratio 29 Ratio (12-20); Blood Urea Nitrogen 60 mg/dL (9-23); Calcium (Corrected) 8.3 mg/dL (8.5-10.1); Carbon Dioxide 31.9 mMol/L (20.0-31.0); Creatinine (Component) 2.1 mg/dL (0.6-1.3); Glucose 89 mg/dL (74-106); Osmolality,Calculated 312 (275-295); Phosphorous 4.1 mg/dL (2.4-5.1); Potassium 3.1 mMol/L (3.4-5.1); Sodium 149 mMol/L (136-145); eGFR 30 See Note
[2025-05-03 10:50] LABS: Chloride 142 mMol/L (98-107)
--- NOTE | 2025-05-03 11:00 | PC.NURSE ---
Dr. Bhardwaj notified patient's blood sugar was 72 when checked. Per resident she will put in order.
[2025-05-03] MEDS: DEXTROSE 50%-WATER INJ 50 ML SYRINGE IVP (11:35)
--- NOTE | 2025-05-03 11:38 | PC.NURSE ---
Report called to [facility] Galo. D50 Dextrose IV given. Speech therapist at bedside. Patient will be taken up to room 378. WAG[facility] Galo made aware med rec not completed yet.
--- NOTE | 2025-05-03 11:48 | PCS.ST ---
COMPOUND FINISHER attempted to swallow evaluation. Pt unable to be roused to begin PO trials. Continue NPO unless pt passes nurse swallow screen. COMPOUND FINISHER to re-attempt formal swallow evaluation tomorrow.
--- NOTE | 2025-05-03 13:51 | ESHP_ITS ---
<Statement entered by Marva Hale MD - 05/15/25 14:04> I reviewed above note and agree with findings and plans. I have also personally examined the patient with medicine team and went over assessment and plan with medical team including sport internship and resident physician. Documentation for date of: 05/03/25 HPI History of Present Illness Chief complaint: blood in urine History of present illness: Brian Patten is 85 yr male with PMH of viral myocarditis, coronary artery disease status post stent, HFrEF 30 to 35%, Parkinson's, traumatic ICH s/p craniotomy, chronic urinary retention requiring self-catheterization, history of GI bleeding, multiple skin cancer presenting to ED today due to hematuria and lethargy.?Patient at baseline is unable to provide history therefore most of the history was taken from chart review and from speaking to patient's daughter and caregiver who was at bedside. ?Patient's caregiver stated that he was noted to have darkening urine today and that around 2 days ago it was clear and not dark at all. ?Caregiver mentioned that patient has been steadily declining as of recently since he got his hip surgery last September 2024. ?He has also been refusing his medications since yesterday, was complaining of abdominal pain. Patient's stated he has been having some issues and he has been weaker with random outburts of verbal aggression.?Spoke with patient's daughter via phone and she stated that patient in fact has been weaker and eating less and being more irritated as of recently maybe for the past couple of days-week.?He used work with PT but has not been accepted back due to severe weakness and decline. Patient has been losing weight and he was recently on antibiotics for UTI. ?Gets nutrition supplement with drinks. She mentioned that he did finish a course of Cipro and Macrobid as well. ?Code status DNR/DNI and that they would like to have treatment, but no aggressive interventions such as possible surgery, but would be okay with colonoscopy if the benefits outweighed the risk. Most recent EGD in August 2024 was mostly benign.? ED course: Initially came in mildly hypertensive and afebrile. ?Initial labs were elevated for acute anemia, hyponatremia, hypochloremia, SHANTA, elevated CRP, elevated BNP, and low T4. ?UA revealed positive for nitrates, blood, leukocyte esterase, bilirubin, but negative to RBCs. ?Patient's fecal occult was also positive. ?Prior to admitting the patient we requested the patient have a abdomen/pelvis CT given his abdominal pain along with his SHANTA on uncertainty if patient had pulled on his supra pubic catheter. PMH: As above Surgical Hx: Craniotomy Allergies: NKDA Meds: Carbidopa levodopa entacapone, Plavix 75 mg, donepezil 5 mg, ferrous sulfate 325 mg, finasteride 5 mg, furosemide 20 mg, melatonin 5 mg, pantoprazole 40 mg, quetiapine 25 mg sertraline 150 mg Review of Systems Review of Systems ROS Unobtainable: unobtainable due to mental status Exam Vital Signs Temp Pulse Resp BP Pulse Ox O2 Del Method O2 Flow Rate 97.6 F 60 16 132/69 H 99 Room Air 1 05/03/25 11:56 05/03/25 12:00 05/03/25 11:56 05/03/25 11:56 05/03/25 11:56 05/03/25 11:56 05/03/25 08:11 Narrative Exam General: Elderly male, cachectic, somnolent, no acute distress HEENT: NCAT, No JVD noted. Jaw clenched unable to open mouth. Pupils are equal and reactive to light bilaterally Cardiovascular: Normal S1 and S2. Regular rate and rhythm. Respiratory: Lungs are clear to auscultation bilaterally. No wheezing or crackles heard. Abdomen: Soft, nontender, not distended, normal bowel sounds. Skin: Warm to touch, dry, no rashes noted, purpura throughout upper extremities. Musculoskeletal: No gross injuries. Able to move all 4 extremities. No pitting edema Neuro: Somnolent, withdraws to pain, no focal neuro deficits. Unable to assess mentation Results: Labs 05/03/25 08:30 05/03/25 08:30 Labs: Short CBC 05/03/25 05/03/25 Range/Units 00:17 08:30 WBC 7.8 6.1 (3.8-10.6) Thou/mm3 Hgb 6.7 L* 9.3 L D (13.5-16.0) g/dL Hct 19.0 L* 26.3 L (41.0-53.0) % Plt Count 252 220 D (140-440) Thou/mm3 BMP 05/03/25 05/03/25 00:17 08:30 Sodium 147 H 149 H Potassium 3.5 3.1 L Chloride 141 H* 142 H* Carbon Dioxide 28.0 31.9 H BUN 55 H 60 H Creatinine 2.5 H 2.1 H Glucose 104 89 Calcium 8.3 8.0 L Cardiac Enzymes 05/03/25 Range/Units 00:17 Troponin I 0.039 (0.0-0.045) ng/mL Liver Function 05/03/25 05/03/25 Range/Units 00:17 08:30 Total Bilirubin 0.3 (0.3-1.2) mg/dL Direct Bilirubin < 0.1 (0.0-0.3) mg/dL ALT < 7 L (10-49) U/L Alkaline Phosphatase 85 (46-116) U/L Albumin 3.7 3.6 (3.4-4.8) gm/dL Urine 05/03/25 Range/Units 01:05 Urine Color Drk [place] A (Lt Yel-Yel) Urine Clarity Clear (Clear/Hazy) Urine pH 6.5 (5.0-7.0) Ur Specific [place] 1.020 (1.001-1.035) Urine Protein 3+ A (Neg - Trace) Urine Glucose (UA) Trace (Negative) Quality Measures Quality Measures none Advance care planning discussed with:: child Medications Home Medications and Allergies Home Medications ?Medication ?Instructions ?Recorded ?Confirmed ?Type rasagiline 1 mg tablet (Azilect) 1 mg PO QDAY 03/20/19 05/03/25 History pantoprazole 40 mg tablet,delayed 40 mg PO QDAY 05/03/25 History release donepezil 5 mg tablet 5 mg PO HS 05/15/23 05/03/25 History finasteride 5 mg tablet 5 mg PO HS 05/15/23 05/03/25 History clopidogrel 75 mg tablet (Plavix) 75 mg PO QDAY 05/03/25 History sertraline 150 mg capsule 150 mg PO HS 11/19/23 History camphor 3.1 %-methyl salicylate 10 1 patch topical QDA Y PRN pain 05/03/25 05/03/25 History %-menthol 6 % topical patch (Salonpas) carbidopa 37.5 mg-levodopa 150 1 tab PO QID 05/03/25 0 05/03/25 History mg-entacapone 200 mg tablet clobetasol 0.05 % topical cream 1 applic topical BID 0 05/03/25 05/03/25 History furosemide 20 mg tablet 20 mg PO QDAY 05/03/2505/03 History melatonin 5 mg capsule 5 mg PO HS 05/03/25 05/03/25 History prednisolone sodium phosphate 1 1 drp ophthalmic (eye) BID S/P 05/03/25 05/03/25 History %-bromfenac 0.075 % eye drops Cataract Sx quetiapine 25 mg tablet 25 mg PO QDAY PRN increased anxiety 05/03/25 05/03/25 History quetiapine 50 mg tablet 50 mg PO HS 05/03/25 5 History Allergies Allergy/AdvReac Type Severity Reaction Status Date / Time No Known Allergies Allergy Verified 04/01/25 19:36 Visit Medications Acetaminophen (Acetaminophen 325 Mg Tablet) 650 mg PO Q6H PRN PRN Reason: Fever >100.3 or pain Stop: 06/02/25 09:53 Sodium Chloride (Ns) 1,000 mls @ 85 mls/hr IV .[id number] ONE Stop: 05/04/25 01:09 Ondansetron HCl (Ondansetron Inj 2 Mg/Ml Inj 2 Ml) 4 mg IVP Q6H PRN; Protocol PRN Reason: NAUSEA OR VOMITING Stop: 06/02/25 09:53 Pantoprazole Sodium (Pantoprazole Inj 40 Mg Vial) 40 mg IVP Q12HR BEAR Stop: 06/03/25 08:59 Discontinued Medications Dextrose (Dextrose 50%-Water Inj 50 Ml Syringe) 50 ml IVP X1 ONE Stop: 05/03/25 11:12 Last Admin: 05/03/25 11:35 Dose: 50 ml Famotidine (Famotidine Inj 10 Mg/Ml Vial 2 Ml) 20 mg IVP X1 ONE Stop: 05/03/25 01:16 Last Admin: 05/03/25 01:30 Dose: 20 mg Ceftriaxone Sodium 2 gm/ (Sodium Chloride) 50 mls @ 100 mls/hr IV X1 ONE Stop: 05/03/25 08:06 Last Infusion: 05/03/25 10:02 Dose: Infused Lorazepam (Lorazepam 2 Mg/Ml Vial) 2 mg IVP X1 ONE Stop: 05/03/25 03:26 Last Admin: 05/03/25 05:00 Dose: 2 mg Ondansetron HCl (Ondansetron Inj 2 Mg/Ml Inj 2 Ml) 4 mg IVP X1 ONE; Protocol Stop: 05/03/25 01:16 Last Admin: 05/03/25 01:30 Dose: 4 mg Pantoprazole Sodium (Pantoprazole Inj 40 Mg Vial) 80 mg IVP X1 ONE Stop: 05/03/25 01:16 Last Admin: 05/03/25 01:30 Dose: 80 mg Assessment & Plan Plan 85-year-old male with past medical history of CAD s/p stent, HFrEF (EF 30 to 35%), Parkinson's disease, traumatic intracranial hemorrhage status postcraniotomy, chronic urinary retention s/p suprapubic catheter, Hx of GI bleed, and skin cancer was admitted to the hospital on 05/03/2025 for acute blood loss anemia likely secondary to possible GI bleed. #Acute blood loss anemia #Upper GI bleed Patient came in with a hemoglobin of 6.7, fecal occult blood was positive patient does have a history of previous GI bleeds. EGD in past has been negative and were unable to find a source of bleeding. Patient was transfused 1 PRBC in the ED -Dr. Siddiqui consulted, appreciate recs -NPO -Pantoprazole 40 mg BID - Hold NSAIDs, antiplatelets -daily CBC -transfuse if Hb <7 #SHANTA on CKD #Electrolyte imbalance #Hypernatremia #Hyperchloremia #Hypokalemia Patient does have some underlying CKD, but previously his creatinine was around 1.2. Poor oral intake per caregiver at [facility]. Extremely cachectic. Sodium was 147 and his chloride was 141 on admission. -IV fluids LR 100cc/hr -Avoid nephrotoxic agents -Renally dose medications -Will continue to monitor -replete as needed -Monitor ANGELIQUE's # Complicated UTI #Hx of chronic urinary retention s/p suprapubic catheter #Hx BPH Patient's UA was positive for leukocytes esterase and nitrates as well as bilirubin and blood, but negative for RBCs or bacteria. Recent history of course of antibiotics. History of multidrug-resistant organisms with the most recent urine culture on 04/01/2025 showing the patient had Enterobacter aerogenes, Pseudomonas aeruginosa's, and Klebsiella pneumoniae, which were sensitive to either the cefepime, ceftazidime, Cipro, levofloxacin, Zosyn, and tobramycin. ?IV Zosyn 3.375 TID -Urine culture ordered -daily CBC - Resume finasteride 5 mg HS pending swallow eval #Failure to thrive Most likely due to worsening Parkinson's which she was diagnosed with for about 15 years ago. Patient takes medication and is usually been able to eat properly but since past week especially in past couple days, he has been declining. BMI 17 severely cachectic. Caregiver tries to supplement with Ensure. ? Speech eval ? Nurse swallow screen for p.o. meds ? IV alternatives ? Will consult dietary team #Hx CAD s/p stents #Hx Parkinsons -Hold Plavix in setting of hematuria ? Resume carbidopa?levodopa?entacapone, Donepezil 5mg HS, Rasagiline 1mg QD pending swallow eval Health maintenance: Dispo: medsurg GI bleed FEN: NPO pending swallow eval and EGD DVT prophylaxis:scds CODE STATUS: Full code The patient's management plan was discussed with my attending physician Dr. Hale. Evelyn Bhardwaj, PGY-1
[2025-05-03] MEDS: POTASSIUM CHL 10 mEq IVPB 10 MEQ/100 ML BAG 100 MEQ IV ×4 (14:24→17:50)
[2025-05-03] MEDS: RINGERS LACTATED 1000 ML 1,000 ML 100 ML IV ×2 (14:25→22:12)
[2025-05-03] MEDS: PIPER/TAZO 3.375 GM PREMIX 3.375 GM/50 ML BAG IV ×2 (15:10→22:10)
[2025-05-03 20:36] LABS: Anion Gap -20 (7-16); BUN/Creatinine Ratio 29 Ratio (12-20); Blood Urea Nitrogen 43 mg/dL (9-23); Calcium 8.4 mg/dL (8.3-10.6); Carbon Dioxide 27.7 mMol/L (20.0-31.0); Creatinine (Component) 1.5 mg/dL (0.6-1.3); Estimated Creatinine Clearance 26.3 mL/min (>60); Glucose 80 mg/dL (74-106); Osmolality,Calculated 307 (275-295); Potassium 3.7 mMol/L (3.4-5.1); Sodium 150 mMol/L (136-145); eGFR 46 See Note
[2025-05-03 20:38] LABS: Chloride 142 mMol/L (98-107)
--- NOTE | 2025-05-03 20:43 | PD.IMCONS ---
HPI Data of Consult Requesting Physician: Marva Hale MD Primary Care Provider: Jani Henry MD Consult Narrative Reason for consult: Anemia of blood loss, FOBT positive History of present illness: 85 years old male brought in by evaluation by the family for feeling weak having hematuria and lethargy During the course of the evaluation in the ER patient was found to have gross electrolyte abnormalities with hypokalemia hyper chloremia SHANTA on CKD As well as a low hemoglobin hematocrit of 6.7 and 19.0 with a platelet count of 20 52,000 and since then patient has been transfused Chloride was 141 CRP was 4.2 occult blood was positive urine toxicology was negative although patient has evidence of dirty urine with urinary tract infection which is complicated CT scan of the chest abdomen pelvis is negative except for infrarenal abdominal aortic aneurysm 3.7 cm large amount of stool suprapubic drainage catheter Patient does have a history of viral myocarditis coronary artery status post PTCA ejection fraction 35% Parkinson's disease traumatic ICH requiring craniotomy chronic urinary retention requiring catheterization and history of multiple UTIs cc:: cc: Marva Hale MD Review of Systems Review of Systems ROS Unobtainable: unobtainable due to medical condition Past Medical History Surgical History OTHER SURGICAL HX: As in the history of present illness Meds Home Medications and Allergies Home Medications ?Medication ?Instructions ?Recorded ?Confirmed ?Type rasagiline 1 mg tablet (Azilect) 1 mg PO QDAY 03/20/19 05/03/25 History pantoprazole 40 mg tablet,delayed 40 mg PO QDAY 03/12/23 05/03/25 History release donepezil 5 mg tablet 5 mg PO HS 05/15/23 05/03/25 History finasteride 5 mg tablet 5 mg PO HS 05/15/23 05/03/25 History clopidogrel 75 mg tablet (Plavix) 75 mg PO QDAY 10/26/23 05/03/25 History sertraline 150 mg capsule 150 mg PO HS 11/19/23 05/03/25 History camphor 3.1 %-methyl salicylate 10 1 patch topical QDAY PRN pain 05/03/25 05/03/25 History %-menthol 6 % topical patch (Salonpas) carbidopa 37.5 mg-levodopa 150 1 tab PO QID 05/03/25 05/03/25 History mg-entacapone 200 mg tablet clobetasol 0.05 % topical cream 1 applic topical BID 05/03/25 05/03/25 History furosemide 20 mg tablet 20 mg PO QDAY 05/03/25 05/03/25 History melatonin 5 mg capsule 5 mg PO HS 05/03/25 05/03/25 History prednisolone sodium phosphate 1 1 drp ophthalmic (eye) BID S/P 05/03/25 05/03/25 History %-bromfenac 0.075 % eye drops Cataract Sx quetiapine 25 mg tablet 25 mg PO QDAY PRN increased anxiety 05/03/25 05/03/25 History quetiapine 50 mg tablet 50 mg PO HS 05/03/25 05/03/25 History Allergies Allergy/AdvReac Type Severity Reaction Status Date / Time No Known Allergies Allergy Verified 04/01/25 19:36 Exam Vital Signs Temp Pulse Resp BP Pulse Ox O2 Del Method O2 Flow Rate 98.2 F 66 15 134/54 H 97 Room Air 1 05/03/25 16:00 05/03/25 20:13 05/03/25 16:00 05/03/25 16:00 05/03/25 16:00 05/03/25 11:56 05/03/25 08:11 Constitutional Comments: Chronically ill-appearing Routine Respiratory Exam Comments: Normal to auscultation Routine Abdominal Exam Comments: Soft nontender Results Labs 05/03/25 08:30 05/03/25 20:07 Labs: Short CBC 05/03/25 05/03/25 Range/Units 00:17 08:30 WBC 7.8 6.1 (3.8-10.6) Thou/mm3 Hgb 6.7 L* 9.3 L D (13.5-16.0) g/dL Hct 19.0 L* 26.3 L (41.0-53.0) % Plt Count 252 220 D (140-440) Thou/mm3 BMP 05/03/25 05/03/25 05/03/25 00:17 08:30 20:07 Sodium 147 H 149 H 150 H Potassium 3.5 3.1 L 3.7 D Chloride 141 H* 142 H* 142 H* Carbon Dioxide 28.0 31.9 H 27.7 BUN 55 H 60 H 43 H Creatinine 2.5 H 2.1 H 1.5 H D Glucose 104 89 80 Calcium 8.3 8.0 L 8.4 Cardiac Enzymes 05/03/25 Range/Units 00:17 Troponin I 0.039 (0.0-0.045) ng/mL Liver Function 05/03/25 05/03/25 Range/Units 00:17 08:30 Total Bilirubin 0.3 (0.3-1.2) mg/dL Direct Bilirubin < 0.1 (0.0-0.3) mg/dL ALT < 7 L (10-49) U/L Alkaline Phosphatase 85 (46-116) U/L Albumin 3.7 3.6 (3.4-4.8) gm/dL Urine 05/03/25 Range/Units 01:05 Urine Color Drk [place] A (Lt Yel-Yel) Urine Clarity Clear (Clear/Hazy) Urine pH 6.5 (5.0-7.0) Ur Specific [place] 1.020 (1.001-1.035) Urine Protein 3+ A (Neg - Trace) Urine Glucose (UA) Trace (Negative) Assessment and Plan Additional Assessment & Plan Additional Plan: # Anemia blood loss # Occult GI bleeding with FOBT positive likely requiring blood transfusion Agree with blood transfusion consent obtained for fiberoptic esophagogastroduodenoscopy with possible biopsy possible therapeutic intervention under intravenous moderate sedation If negative we will consider fiberoptic colonoscopy prior to discharge although patient is DNI DNR but the family does want those things done We will follow the patient Other medical problems include Coronary artery disease status post PTCA Parkinson disease Recurrent and chronic UTIs ICH requiring craniotomy Viral myocarditis Gross electrolyte abnormalities Thank you very much for the opportunity to participate in the care of this patient
--- NOTE | 2025-05-03 21:15 | PC.NURSE ---
Dr. Siddiqui in to assess pt.
--- NOTE | 2025-05-03 21:40 | PC.NURSE ---
Pt daughter ([place]) spoke with Dr. Siddiqui over phone in regards to plan for EGD tomorrow, daughter ok with procedure consent obtained
[2025-05-03] MEDS: BALSAM PERU/CASTOR OIL (Venelex) 60 GM TUBE TOP (22:09)
[2025-05-04] VITALS (12 sets, daily range): BP systolic 115–155; BP diastolic 55–87; PULSE 63–88; RESP 15–21; TEMP 36.3–37.2; O2SAT 92–100; BMI 16.8
[2025-05-04] MEDS: PIPER/TAZO 3.375 GM PREMIX 3.375 GM/50 ML BAG IV ×3 (05:20→22:56)
[2025-05-04 05:38] LABS: Basophils % (Auto) 1 % (0-2.5); Eosinophils # (Auto) 0.1 Thou/mm3 (0.0-0.5); Eosinophils % (Auto) 2 % (0-10); Hematocrit 27.8 % (41.0-53.0); Hemoglobin 9.5 g/dL (13.5-16.0); Immature Granulocytes % (Auto) 0 % (0-0); Immature Granulocytes Auto 0.02 Thou/mm3 (0.00-0.00); Lymphocytes # (Auto) 0.6 Thou/mm3 (1.0-4.8); Lymphocytes % (Auto) 11 % (10-50); Mean Corpuscular HGB Conc 34.2 g/dl (31.0-37.0); Mean Corpuscular Hemoglobin 30.6 pg (25.0-35.0); Mean Corpuscular Volume 90 fL (80-100); Monocytes # (Auto) 0.6 Thou/mm3 (0.0-0.8); Monocytes % (Auto) 13 % (0-12); Neutrophils # (Auto) 3.5 Thou/mm3 (1.8-7.7); Neutrophils % (Auto) 73 % (37-80); Nucleated Red Blood Cell % 0 /100 WBC (0); Platelet Count 219 Thou/mm3 (140-440); RDW Standard Deviation 51.4 fL (35.1-43.9); White Blood Count 4.8 Thou/mm3 (3.8-10.6)
[2025-05-04 06:34] LABS: Alanine Aminotransferase < 7 U/L (10-49); Albumin, Serum 3.4 gm/dL (3.4-4.8); Albumin/Globulin Ratio 1.7 (1.2-2.2); Alkaline Phosphatase 80 U/L (46-116); Anion Gap -17 (7-16); BUN/Creatinine Ratio 31 Ratio (12-20); Bilirubin,Total 0.3 mg/dL (0.3-1.2); Blood Urea Nitrogen 40 mg/dL (9-23); Calcium 8.3 mg/dL (8.3-10.6); Calcium (Corrected) 8.8 mg/dL (8.5-10.1); Carbon Dioxide 27.4 mMol/L (20.0-31.0); Creatinine (Component) 1.3 mg/dL (0.6-1.3); Estimated Creatinine Clearance 30.2 mL/min (>60); Glucose 71 mg/dL (74-106); Osmolality,Calculated 309 (275-295); Phosphorous 3.2 mg/dL (2.4-5.1); Potassium 3.5 mMol/L (3.4-5.1); Sodium 152 mMol/L (136-145); Total Protein 5.4 gm/dL (5.7-8.2); eGFR 54 See Note
[2025-05-04 06:46] LABS: Chloride 142 mMol/L (98-107)
[2025-05-04] MEDS: PANTOPRAZOLE INJ 40 MG VIAL IVP ×2 (08:50→22:40)
[2025-05-04] MEDS: POTASSIUM CHL 10 mEq IVPB 10 MEQ/100 ML BAG 100 MEQ IV ×4 (08:53→12:33)
[2025-05-04] MEDS: BALSAM PERU/CASTOR OIL (Venelex) 60 GM TUBE TOP ×2 (09:03→22:33)
--- NOTE | 2025-05-04 09:04 | PC.NURSE ---
called pharmacy and spoke to Violetta to let her know pt's home meds are in the return bin on [facility] and need to be labeled.
[2025-05-04] MEDS: MOXIFLOXACIN 0.5% LEFT EYE ×3 (10:05→22:35)
[2025-05-04] MEDS: [UNRECOGNIZED DRUG - OTHER] LEFT EYE ×3 (10:05→22:35)
[2025-05-04] MEDS: BROMFENAC 0.075% LEFT EYE ×3 (10:05→22:35)
[2025-05-04] MEDS: RASAGILINE MESYLATE 1 MG TABLET PO (10:06)
[2025-05-04] MEDS: ACETAMINOPHEN 325 MG TABLET 650 MG PO (10:09)
[2025-05-04] MEDS: FERROUS SULF 325 MG TABLET PO (10:14)
[2025-05-04] MEDS: DEXTROSE 5%-WATER 1,000 ML 50 ML IV (10:22)
[2025-05-04 10:42] LABS: Base Excess 0 (-3-3); HCO3 26 mEq/L (20-26); Inspired O2, VO2 Liters 1 L/min; Inspired Oxygen, FIO2 21 %; O2 Saturation 100 % (91-98); PCO2 44 mmHg (32.0-48.0); PO2 130 mmHg (83-108); pH, Arterial 7.38 (7.35-7.45)
[2025-05-04 10:43] LABS: Allen Test Performed/OK; Puncture Site Right Radial
[2025-05-04 10:45] LABS: Sodium 147 mMol/L (136-145)
--- NOTE | 2025-05-04 13:10 | PC.DIETICIAN ---
Dietitian note: Pt meets criteria for severe protein calorie malnutrition, <50% of estimated energy requirements >5days, 14% wt loss [id number]. Thank you
--- NOTE | 2025-05-04 14:55 | PC.SS ---
Late entry, rounding note: EGD pending. Currently on IV antibiotics.
--- NOTE | 2025-05-04 15:24 | PD.RESPRO ---
Documentation for date of: 05/04/25 Subjective Subjective Interval history: Patient examined at bedside. No events overnight, patient is still somnolent after receiving Ativan in the ED. He responds to pain but does not open eyes on command. Hb 9, hyponatremia 152, potassium 3.5, chloride 142, creatinine 1.3. Switched LR fluids to D5W 50cc/hr for hypernatremia. Goal sodium 145 with checks every 4hrs. EGD pending. Hold off on sedative medications. continue IV zosyn for UTI, urine culture pending. Exam Vital Signs Temp Pulse Resp BP Pulse Ox O2 Del Method O2 Flow Rate 97.5 F 65 17 152/68 H 100 Nasal Cannula 1 05/04/25 12:00 05/04/25 12:05/04/25 12:05/04/25 12:05/04/25 12:05/04/25 12:05/04/25 12:00 Narrative Exam General: Elderly male, cachectic, somnolent, no acute distress HEENT: NCAT, No JVD noted. Jaw clenched unable to open mouth. Pupils are equal and reactive to light bilaterally Cardiovascular: Normal S1 and S2. Regular rate and rhythm. Respiratory: Lungs are clear to auscultation bilaterally. No wheezing or crackles heard. Abdomen: Soft, nontender, not distended, normal bowel sounds. Skin: Warm to touch, dry, no rashes noted, purpura throughout upper extremities. Musculoskeletal: No gross injuries. Able to move all 4 extremities. No pitting edema Neuro: Somnolent, withdraws to pain, no focal neuro deficits. Unable to assess mentation Objective Labs 05/05/25 04:37 05/05/25 09:25 Labs: Laboratory Results - last 24 hr 05/03/25 05/04/25 05/04/25 20:07 04:50 10:00 WBC 4.8 RBC 3.10 L Hgb 9.5 L Hct 27.8 L MCV 90 MCH 30.6 MCHC 34.2 RDW Std Deviation 51.4 H Plt Count 219 Neut % (Auto) 73 Lymph % (Auto) 11 [place] % (Auto) 13 H Eos % (Auto) 2 Baso % (Auto) 1 Neut # (Auto) 3.5 Lymph # (Auto) 0.6 L [place] # (Auto) 0.6 Eos # (Auto) 0.1 Baso # (Auto) 0.0 Immature Gran # (Auto) 0.02 H Absolute Nucleated RBC 0.00 Immature Gran % 0 Nucleated RBC % 0 Puncture Site Right Radial ABG pH 7.38 ABG pCO2 44 ABG pO2 130 H ABG HCO3 26 ABG O2 Saturation 100 H ABG Base Excess 0 Oxygen Liter Flow 1 FiO2 21 Sodium 150 H 152 H Potassium 3.7 D 3.5 Chloride 142 H* 142 H* Carbon Dioxide 27.7 27.4 Anion Gap -20 L -17 L BUN 43 H 40 H Creatinine 1.5 H D 1.3 Estim Creat Clear Calc 26.3 L 30.2 L eGFR 46 L 54 L BUN/Creatinine Ratio 29 H 31 H Glucose 80 71 L Calculated Osmolality 307 H 309 H Calcium 8.4 8.3 Corrected Calcium 8.8 Phosphorus 3.2 Magnesium 2.0 Total Bilirubin 0.3 ALT < 7 L Alkaline Phosphatase 80 Total Protein 5.4 L Albumin 3.4 Globulin 2.0 L Albumin/Globulin Ratio 1.7 05/04/25 10:10 WBC RBC Hgb Hct MCV MCH MCHC RDW Std Deviation Plt Count Neut % (Auto) Lymph % (Auto) [place] % (Auto) Eos % (Auto) Baso % (Auto) Neut # (Auto) Lymph # (Auto) [place] # (Auto) Eos # (Auto) Baso # (Auto) Immature Gran # (Auto) Absolute Nucleated RBC Immature Gran % Nucleated RBC % Puncture Site ABG pH ABG pCO2 ABG pO2 ABG HCO3 ABG O2 Saturation ABG Base Excess Oxygen Liter Flow FiO2 Sodium 147 H Potassium Chloride Carbon Dioxide Anion Gap BUN Creatinine Estim Creat Clear Calc eGFR BUN/Creatinine Ratio Glucose Calculated Osmolality Calcium Corrected Calcium Phosphorus Magnesium Total Bilirubin ALT Alkaline Phosphatase Total Protein Albumin Globulin Albumin/Globulin Ratio ABG Interpretation ABG results: 05/04/25 10:00 ABG pH 7.38 ABG pCO2 44 ABG pO2 130 H ABG HCO3 26 ABG O2 Saturation 100 H ABG Base Excess 0 Quality Measures Quality Measures none Advance care planning discussed with:: child Assessment & Plan Assessment Current Active Medications: Generic Name Dose Route Start Last Admin Trade Name Freq PRN Reason Stop Dose Admin Acetaminophen 650 mg 05/03/25 09:54 05/04/25 10:09 Acetaminophen 325 Mg Tablet PO 06/02/25 09:53 650 mg Q6H PRN Administration Fever >100.3 or pain Balsam [place] Oil 0 gm 05/03/25 21:00 05/04/25 09:03 Balsam [place] Oil (Venelex) 60 Gm Tube TOP 06/02/25 20:59 1 applicatio BID BEAR Administration Prednisolone 0 ea 05/04/25 09:30 05/04/25 12:45 Phosphate 1% - LEFT EYE 06/03/25 09:29 1 solution Moxifloxacin 0.5%- QID BEAR Administration Bromfenac 0.075% Eye Drops Rasagiline Mesylate 0 ea 05/04/25 09:30 05/04/25 10:06 1 Mg Tablet PO 06/03/25 09:29 1 tablet QDAY BEAR Administration Carbidopa-Levodopa- 0 ea 05/04/25 12:00 05/04/25 12:43 Entacapone 37.5-150- PO 06/03/25 11:59 Not Given 200 Mg QID BEAR Donepezil HCl 5 mg 05/04/25 21:00 Donepezil Hcl 5 Mg Tablet PO 06/03/25 20:59 HS BEAR Ferrous Sulfate 325 mg 05/04/25 09:00 05/04/25 10:14 Ferrous Sulf 325 Mg Tablet PO 06/03/25 08:59 325 mg QDAY BEAR Administration Finasteride 5 mg 05/03/25 21:00 05/03/25 20:39 Finasteride 5 Mg Tablet PO 06/02/25 20:59 Not Given HS BEAR Piperacillin/Tazobactam/Dextrose 3.375 gm in 50 mls @ 12.5 mls/hr 05/03/25 14:29 05/04/25 14:15 Zosyn IV 05/10/25 14:28 12.5 mls/hr Q8HR BEAR Administration Dextrose 1,000 mls @ 50 mls/hr 05/04/25 09:45 05/04/25 10:22 D5w IV 05/05/25 05:44 50 mls/hr .Q20H BEAR Administration Melatonin 6 mg 05/04/25 21:00 Melatonin 3 Mg Tablet PO 06/03/25 20:59 HS BEAR Protocol Ondansetron HCl 4 mg 05/03/25 09:54 Ondansetron Inj 2 Mg/Ml Inj 2 Ml IVP 06/02/25 09:53 Q6H PRN NAUSEA OR VOMITING Protocol Pantoprazole Sodium 40 mg 05/04/25 09:00 05/04/25 08:50 Pantoprazole Inj 40 Mg Vial IVP 06/03/25 08:59 40 mg Q12HR BEAR Administration (Camphor-Methyl 1 ea 05/03/25 15:26 Salicyl-Menthol [ PO Salonpas] 3.1-10-6 % QDAY PRN pain Quetiapine Fumarate 25 mg 05/03/25 15:11 Quetiapine Fumarate 25 Mg Tablet PO 06/02/25 15:10 QDAY PRN increased anxiety Sertraline HCl 150 mg 05/04/25 21:00 Sertraline Hcl 25 Mg Tablet PO 06/03/25 20:59 HS BEAR Plan 85-year-old male with past medical history of CAD s/p stent, HFrEF (EF 30 to 35%), Parkinson's disease, traumatic intracranial hemorrhage status postcraniotomy, chronic urinary retention s/p suprapubic catheter, Hx of GI bleed, and skin cancer was admitted to the hospital on 05/03/2025 for acute blood loss anemia likely secondary to possible GI bleed. #Acute blood loss anemia #Upper GI bleed Patient came in with a hemoglobin of 6.7, fecal occult blood was positive patient does have a history of previous GI bleeds. EGD in past has been negative and were unable to find a source of bleeding. s/p 2 units prbc. -Dr. Siddiqui consulted, appreciate recs--planning for EGD -NPO -Pantoprazole 40 mg BID - Hold NSAIDs, antiplatelets -daily CBC -transfuse if Hb <7 #SHANTA on CKD #Electrolyte imbalance #Hypernatremia #Hyperchloremia #Hypokalemia Patient does have some underlying CKD, but previously his creatinine was around 1.2. Poor oral intake per caregiver at bedisde. Extremely cachectic. Sodium was 147 and his chloride was 141 on admission. -IV fluids D10 50cc/hr with goal sodium 145 -sodium check q4hr -Avoid nephrotoxic agents -Renally dose medications -Will continue to monitor -replete as needed -Monitor ANGELIQUE's # Complicated UTI #Hx of chronic urinary retention s/p suprapubic catheter #Hx BPH Patient's UA was positive for leukocytes esterase and nitrates as well as bilirubin and blood, but negative for RBCs or bacteria. Recent history of course of antibiotics. History of multidrug-resistant organisms with the most recent urine culture on 04/01/2025 showing the patient had Enterobacter aerogenes, Pseudomonas aeruginosa's, and Klebsiella pneumoniae, which were sensitive to either the cefepime, ceftazidime, Cipro, levofloxacin, Zosyn, and tobramycin. ?IV Zosyn 3.375 TID -Urine culture ordered -daily CBC - Resume finasteride 5 mg HS pending swallow eval #Failure to thrive Most likely due to worsening Parkinson's which she was diagnosed with for about 15 years ago. Patient takes medication and is usually been able to eat properly but since past week especially in past couple days, he has been declining. BMI 17 severely cachectic. Caregiver tries to supplement with Ensure. ? Speech eval ? Nurse swallow screen for p.o. meds ? IV alternatives ? Will consult dietary team #Hx CAD s/p stents #Hx Parkinsons -Hold Plavix in setting of hematuria ? Resume carbidopa?levodopa?entacapone, Donepezil 5mg HS, Rasagiline 1mg QD pending swallow eval Health maintenance: Dispo: medsurg GI bleed FEN: NPO pending swallow eval and EGD DVT prophylaxis:scds CODE STATUS: Full code The patient's management plan was discussed with my attending physician Dr. Ferguson. Evelyn Bhardwaj, PGY-1 Attending Provider Attestation/Addendum I attest that I was physically present for the evaluation, physical examination, lab and imaging review of the patient with the residents. I discussed the case with the residents and agree with the findings and plans of care as documented above. Brenda Ferguson MD
[2025-05-04] MEDS: NA SU/NAHCO3/KC/PEG (Golytely) 4,000 ML BTL 4000 ML NG (22:44)
[2025-05-05] VITALS (7 sets, daily range): BP systolic 127–157; BP diastolic 53–89; PULSE 53–69; RESP 15–20; TEMP 36.5–37.1; O2SAT 98–100; BMI 17.9
[2025-05-05] MEDS: BROMFENAC 0.075% LEFT EYE ×4 (05:11→20:48)
[2025-05-05] MEDS: MOXIFLOXACIN 0.5% LEFT EYE ×4 (05:11→20:48)
[2025-05-05] MEDS: PIPER/TAZO 3.375 GM PREMIX 3.375 GM/50 ML BAG IV ×3 (05:11→21:01)
[2025-05-05] MEDS: [UNRECOGNIZED DRUG - OTHER] LEFT EYE ×4 (05:11→20:48)
[2025-05-05 05:24] LABS: Basophils % (Auto) 0 % (0-2.5); Eosinophils # (Auto) 0.3 Thou/mm3 (0.0-0.5); Eosinophils % (Auto) 5 % (0-10); Hematocrit 27.4 % (41.0-53.0); Hemoglobin 9.3 g/dL (13.5-16.0); Immature Granulocytes % (Auto) 0 % (0-0); Immature Granulocytes Auto 0.02 Thou/mm3 (0.00-0.00); Lymphocytes # (Auto) 0.6 Thou/mm3 (1.0-4.8); Lymphocytes % (Auto) 11 % (10-50); Mean Corpuscular HGB Conc 33.9 g/dl (31.0-37.0); Mean Corpuscular Hemoglobin 30.8 pg (25.0-35.0); Mean Corpuscular Volume 91 fL (80-100); Monocytes # (Auto) 0.7 Thou/mm3 (0.0-0.8); Monocytes % (Auto) 13 % (0-12); Neutrophils # (Auto) 3.9 Thou/mm3 (1.8-7.7); Neutrophils % (Auto) 71 % (37-80); Nucleated Red Blood Cell % 0 /100 WBC (0); Platelet Count 194 Thou/mm3 (140-440); Red Blood Count 3.02 Miln/mm3 (4.50-5.90); White Blood Count 5.6 Thou/mm3 (3.8-10.6)
[2025-05-05 06:10] LABS: Alanine Aminotransferase < 7 U/L (10-49); Albumin, Serum 3.2 gm/dL (3.4-4.8); Albumin/Globulin Ratio 1.7 (1.2-2.2); Alkaline Phosphatase 76 U/L (46-116); Anion Gap -15 (7-16); BUN/Creatinine Ratio 23 Ratio (12-20); Bilirubin,Total 0.3 mg/dL (0.3-1.2); Blood Urea Nitrogen 23 mg/dL (9-23); Calcium (Corrected) 8.6 mg/dL (8.5-10.1); Carbon Dioxide 26.8 mMol/L (20.0-31.0); Chloride 135 mMol/L (98-107); Estimated Creatinine Clearance 39.3 mL/min (>60); Globulin 1.9 gm/dL (2.3-3.5); Glucose 89 mg/dL (74-106); Osmolality,Calculated 295 (275-295); Potassium 3.8 mMol/L (3.4-5.1); Sodium 147 mMol/L (136-145); Total Protein 5.1 gm/dL (5.7-8.2); eGFR > 60 See Note
[2025-05-05] MEDS: RASAGILINE MESYLATE 1 MG TABLET PO (08:26)
[2025-05-05] MEDS: PANTOPRAZOLE INJ 40 MG VIAL IVP ×2 (08:26→20:50)
[2025-05-05] MEDS: FERROUS SULF 325 MG TABLET PO (08:26)
[2025-05-05] MEDS: BALSAM PERU/CASTOR OIL (Venelex) 60 GM TUBE TOP ×2 (08:27→20:51)
--- NOTE | 2025-05-05 09:23 | PC.PT ---
PT confirmed with RN that patient is currently on GoLytely and pending colonoscopy. Will hold PT eval until patient is off GoLytely.
[2025-05-05 09:51] LABS: Sodium 147 mMol/L (136-145)
--- NOTE | 2025-05-05 11:07 | PC.SS ---
85YO Male admitted for GI BLEED. SS attempted to complete initial assessment with patient and caregiver. Caregiver redirected SS to contact patient?s spouse, Nikky Patten [phone]. Patient?s spouse verified demographic information. She stated patient?s medical surrogate decisionmaker is patient?s daughter, Geneva Patten [phone]. Patient has in home caregivers who assist patient with ADLs. Patient utilizes FWW and wheelchair to ambulate. Patient requires someone to be next to him at all times when ambulating with FWW. Patient uses home oxygen as needed; patient?s spouse unable to recall liter flow or provider. [facility]. PCP: Dr. Henry. Candy Starch Mold Printer: Dr. Varner. Urologist: Dr. Maldonado. Discharge plan: Home, transportation to be provided by family. Next of kin: Daughter Geneva Patten [phone]
[2025-05-05] MEDS: CARBIDOPA LEVODOPA ENTACAPONE PO ×3 (11:30→20:40)
[2025-05-05] MEDS: ACETAMINOPHEN 325 MG TABLET 650 MG PO (12:33)
--- NOTE | 2025-05-05 13:36 | ESPR_ITS ---
<Statement entered by Helen Kumar MD - 05/05/25 13:52> The patient is an 85-year-old male with a history of coronary artery disease (on Plavix), Parkinson's disease, and urinary retention (status post suprapubic catheter placement and self-catheterization). He was admitted for treatment and management of an acute GI bleed requiring transfusion. 05/05/25: The patient was seen and examined at the bedside with no acute events overnight. Labs revealed stable hemoglobin of 9.3, with no signs of active bleeding. CMP showed hypernatremia (Na 147). An NG tube was placed, and the patient started on 100 cc of 3-hour free water flushes to address sodium imbalance. The goal is to achieve a sodium level of 140-142 within the next 24 hours. Yesterday, the patient underwent an EGD, which revealed esophagitis and gastritis. The NG tube remains in place, and the patient will begin a clear liquid diet along with GoLytely preparation. Continue current management and closely monitor sodium levels. Flushes will be continued for only today, and we will monitor further. Follow up on colonoscopy results. The patient is experiencing failure to thrive and will need a consult with a pulp house supervisor. I discussed with and supervised the bakery pastry internship physician who took care of this patient. I personally saw and examined the patient and discussed the assessment and plan with the entire medicine team, including my attending , I agree with the assessment and plan as documented below Helen Kumar M.D. PGY-2 Disclaimer: Despite multiple revisions, due to the dictation software being used, the document bellow may not be free of grammatical errors including phonetic/typographic errors. However, this does not deter from our commitment to providing health care in the patient's best interest in mind. Documentation for date of: 05/05/25 Subjective Subjective Interval history: Patient examined at bedside. No events overnight, patient is still somnolent but improved from yesterday. He responds to pain, mumbles few words, but does not open eyes on command. Hb stable 9, sodium 147, potassium 3.8, chloride 135, creatinine downtrended 1.0. EGD done yesterday revealed esophagitis and gastritis. No bleeding. GI placed NG tube for GoLytely prep for colonoscopy. We will start free water flushes through NG tube 100 cc/3hr. Hold off on sedative medications. continue IV zosyn for staph aureus UTI. Speech therapy evalutated patient--suggesting to crush PO meds in puree and have him on dysphagia II diet when ready to advance. Exam Vital Signs Temp Pulse Resp BP Pulse Ox O2 Del Method O2 Flow Rate 98.1 F 69 18 157/76 H 100 Nasal Cannula 3 05/05/25 12:00 05/05/25 12:00 05/05/25 12:00 05/05/25 12:00 05/05/25 12:05/05/25 12:05/05/25 04:00 Narrative Exam General: Elderly male, cachectic, somnolent, no acute distress HEENT: NCAT, No JVD noted. Jaw clenched unable to open mouth. Pupils are equal and reactive to light bilaterally Cardiovascular: Normal S1 and S2. Regular rate and rhythm. Respiratory: Lungs are clear to auscultation bilaterally. No wheezing or crackles heard. Abdomen: Soft, nontender, not distended, normal bowel sounds. Skin: Warm to touch, dry, no rashes noted, purpura throughout upper extremities. Musculoskeletal: No gross injuries. No pitting edema Neuro: Somnolent, withdraws to pain, no focal neuro deficits. Unable to assess mentation Objective Labs 05/06/25 05:44 05/06/25 06:50 Labs: Laboratory Results - last 24 hr 05/05/25 05/05/25 04:37 09:25 WBC 5.6 RBC 3.02 L Hgb 9.3 L Hct 27.4 L MCV 91 MCH 30.8 MCHC 33.9 RDW Std Deviation 53.0 H Plt Count 194 Neut % (Auto) 71 Lymph % (Auto) 11 [place] % (Auto) 13 H Eos % (Auto) 5 Baso % (Auto) 0 Neut # (Auto) 3.9 Lymph # (Auto) 0.6 L [place] # (Auto) 0.7 Eos # (Auto) 0.3 Baso # (Auto) 0.0 Immature Gran # (Auto) 0.02 H Absolute Nucleated RBC 0.00 Immature Gran % 0 Nucleated RBC % 0 Sodium 147 H 147 H Potassium 3.8 Chloride 135 H* Carbon Dioxide 26.8 Anion Gap -15 L BUN 23 Creatinine 1.0 Estim Creat Clear Calc 39.3 L eGFR > 60 BUN/Creatinine Ratio 23 H Glucose 89 Calculated Osmolality 295 Calcium 8.0 L Corrected Calcium 8.6 Total Bilirubin 0.3 ALT < 7 L Alkaline Phosphatase 76 Total Protein 5.1 L Albumin 3.2 L Globulin 1.9 L Albumin/Globulin Ratio 1.7 ABG Interpretation ABG results: 05/04/25 10:00 ABG pH 7.38 ABG pCO2 44 ABG pO2 130 H ABG HCO3 26 ABG O2 Saturation 100 H ABG Base Excess 0 Quality Measures Quality Measures none Advance care planning discussed with:: child Assessment & Plan Assessment Current Active Medications: Generic Name Dose Route Start Last Admin Trade Name Freq PRN Reason Stop Dose Admin Acetaminophen 650 mg 05/03/25 09:54 05/05/25 12:33 Acetaminophen 325 Mg Tablet PO 06/02/25 09:53 650 mg Q6H PRN Administration Fever >100.3 or pain Balsam [place] Oil 0 gm 05/03/25 21:00 05/05/25 08:27 Balsam [place] Oil (Venelex) 60 Gm Tube TOP 06/02/25 20:59 1 applicatio BID BEAR Administration Prednisolone 0 ea 05/04/25 09:30 05/05/25 11:30 Phosphate 1% - LEFT EYE 06/03/25 09:29 1 solution Moxifloxacin 0.5%- QID BEAR Administration Bromfenac 0.075% Eye Drops Rasagiline Mesylate 0 ea 05/04/25 09:30 05/05/25 08:26 1 Mg Tablet PO 06/03/25 09:29 1 tablet QDAY BEAR Administration Carbidopa-Levodopa- 0 ea 05/04/25 12:00 05/05/25 11:30 Entacapone 37.5-150- PO 06/03/25 11:59 1 tablet 200 Mg QID BEAR Administration Donepezil HCl 5 mg 05/04/25 21:00 05/04/25 22:33 Donepezil Hcl 5 Mg Tablet PO 06/03/25 20:59 Not Given HS BEAR Ferrous Sulfate 325 mg 05/04/25 09:00 05/05/25 08:26 Ferrous Sulf 325 Mg Tablet PO 06/03/25 08:59 325 mg QDAY BEAR Administration Finasteride 5 mg 05/03/25 21:00 05/04/25 22:33 Finasteride 5 Mg Tablet PO 06/02/25 20:59 Not Given HS BEAR Piperacillin/Tazobactam/Dextrose 3.375 gm in 50 mls @ 12.5 mls/hr 05/03/25 14:29 05/05/25 13:16 Zosyn IV 05/10/25 14:28 12.5 mls/hr Q8HR BEAR Administration Melatonin 6 mg 05/04/25 21:00 05/04/25 22:33 Melatonin 3 Mg Tablet PO 06/03/25 20:59 Not Given HS BEAR Protocol Menthol/Methyl Salicylate 0 gm 05/05/25 07:42 Methyl Salic/Menthol Oint 28 Gm Tube TOP 06/04/25 07:35 Q8H PRN LOCALIZED PAIN Protocol Ondansetron HCl 4 mg 05/03/25 09:54 Ondansetron Inj 2 Mg/Ml Inj 2 Ml IVP 06/02/25 09:53 Q6H PRN NAUSEA OR VOMITING Protocol Pantoprazole Sodium 40 mg 05/04/25 09:00 05/05/25 08:26 Pantoprazole Inj 40 Mg Vial IVP 06/03/25 08:59 40 mg Q12HR BEAR Administration Quetiapine Fumarate 25 mg 05/03/25 15:11 Quetiapine Fumarate 25 Mg Tablet PO 06/02/25 15:10 QDAY PRN increased anxiety Sertraline HCl 150 mg 05/04/25 21:00 05/04/25 22:34 Sertraline Hcl 25 Mg Tablet PO 06/03/25 20:59 Not Given HS BEAR Plan 85-year-old male with past medical history of CAD s/p stent, HFrEF (EF 30 to 35%), Parkinson's disease, traumatic intracranial hemorrhage status postcraniotomy, chronic urinary retention s/p suprapubic catheter, Hx of GI bleed, and skin cancer was admitted to the hospital on 05/03/2025 for acute blood loss anemia likely secondary to possible GI bleed. #Acute blood loss anemia #Upper GI bleed Patient came in with a hemoglobin of 6.7, fecal occult blood was positive patient does have a history of previous GI bleeds. EGD in past has been negative and were unable to find a source of bleeding. s/p 2 units prbc. EGD done 05/05/25 revealed esophagitis and gastritis. No bleeding. -Dr. Siddiqui consulted, appreciate recs--planning for colonocopy -Go lytely prep through NG tube -Pantoprazole 40 mg BID - Hold NSAIDs, antiplatelets -daily CBC -transfuse if Hb <7 #SHANTA on CKD #Electrolyte imbalance #Hypernatremia #Hyperchloremia #Hypokalemia Patient does have some underlying CKD, but previously his creatinine was around 1.2. Poor oral intake per caregiver at bedisde. Extremely cachectic. Sodium was 147 and his chloride was 141 on admission. -start free water flushes through NG tube 100 cc/3hr. -sodium check tonight 8pm -Avoid nephrotoxic agents -Renally dose medications -Will continue to monitor -replete as needed -Monitor ANGELIQUE's #Complicated UTI, staph aureus #Hx of chronic urinary retention s/p suprapubic catheter #Hx BPH Patient's UA was positive for leukocytes esterase and nitrates as well as bilirubin and blood, but negative for RBCs or bacteria. Recent history of course of antibiotics. History of multidrug-resistant organisms with the most recent urine culture on 04/01/2025 showing the patient had Enterobacter aerogenes, Pseudomonas aeruginosa's, and Klebsiella pneumoniae, which were sensitive to either the cefepime, ceftazidime, Cipro, levofloxacin, Zosyn, and tobramycin. Urine culture positive for staph aureus ?IV Zosyn 3.375 TID -daily CBC - Resume finasteride 5 mg HS #Failure to thrive #Malnutrition Most likely due to worsening Parkinson's which she was diagnosed with for about 15 years ago. Patient takes medication and is usually been able to eat properly but since past week especially in past couple days, he has been declining. BMI 17 severely cachectic. Caregiver tries to supplement with Ensure. ? Speech eval--suggesting to crush PO meds in puree and have him on dysphagia II diet when ready to advance. ? IV alternatives -continue clear liquid diet ?Dietary team consulted-->Pt meets criteria for severe protein calorie malnutrition, <50% of estimated energy requirements >5days, 14% wt loss [id number]. #Hx CAD s/p stents #Hx Parkinsons -Hold Plavix in setting of hematuria ? Resume carbidopa?levodopa?entacapone, Donepezil 5mg HS, Rasagiline 1mg QD Health maintenance: Dispo: [facility]sur[facility]illi[facility] GI bleed FEN: clear liquid diet DVT prophylaxis:scds CODE STATUS: Full code The patient's management plan was discussed with my attending physician Dr. Hodge. Evelyn Bhardwaj, PGY-1 Attending Provider Attestation/Addendum I have examined the patient, reviewed labs and imaging findings, discussed the case with the resident(s), and reviewed entered orders. I agree with the plan of care as outlined in this note, with these additional summaries/recommendations: Patient and daughter seen at bedside. No acute overnight events. Patient is status post EGD without source of bleeding identified. NG tube in place and patient receiving GoLytely with plans for colonoscopy today if cleared. Gastroenterology following, recommendations appreciated. Hemoglobin stable at 9.3 today. Mild hypernatremia present and likely secondary to dehydration. We will resume diet after colonoscopy. Continue IV Zosyn for complicated urinary tract infection. Renal function continues to improve. Avoid nephrotoxic agents and renally dose medications. Patient also noted to have failure to thrive and speech therapy plus dietary following. Overall prognosis guarded. Resume home Parkinson's medications when able. Please see residents note for additional details and management. Dr. Naveen MD
[2025-05-05] MEDS: NA SU/NAHCO3/KC/PEG (Golytely) 4,000 ML BTL 4000 ML PO (15:52)
--- NOTE | 2025-05-05 19:44 | PD.IMPROG ---
Documentation for date of: 05/05/25 Subjective Subjective Interval history: Patient evaluated Not clear for colonoscopy Continue GoLytely prep Exam Vital Signs Temp Pulse Resp BP Pulse Ox O2 Del Method O2 Flow Rate 98.1 F 68 17 140/53 H 100 Room Air 3 05/05/25 16:00 05/05/25 16:00 05/05/25 16:00 05/05/25 16:00 05/05/25 16:00 05/05/25 16:00 05/05/25 04:00 Objective Labs 05/05/25 04:37 05/05/25 09:25 Labs: Laboratory Results - last 24 hr 05/05/25 05/05/25 04:37 09:25 WBC 5.6 RBC 3.02 L Hgb 9.3 L Hct 27.4 L MCV 91 MCH 30.8 MCHC 33.9 RDW Std Deviation 53.0 H Plt Count 194 Neut % (Auto) 71 Lymph % (Auto) 11 [place] % (Auto) 13 H Eos % (Auto) 5 Baso % (Auto) 0 Neut # (Auto) 3.9 Lymph # (Auto) 0.6 L [place] # (Auto) 0.7 Eos # (Auto) 0.3 Baso # (Auto) 0.0 Immature Gran # (Auto) 0.02 H Absolute Nucleated RBC 0.00 Immature Gran % 0 Nucleated RBC % 0 Sodium 147 H 147 H Potassium 3.8 Chloride 135 H* Carbon Dioxide 26.8 Anion Gap -15 L BUN 23 Creatinine 1.0 Estim Creat Clear Calc 39.3 L eGFR > 60 BUN/Creatinine Ratio 23 H Glucose 89 Calculated Osmolality 295 Calcium 8.0 L Corrected Calcium 8.6 Total Bilirubin 0.3 ALT < 7 L Alkaline Phosphatase 76 Total Protein 5.1 L Albumin 3.2 L Globulin 1.9 L Albumin/Globulin Ratio 1.7 Impressions Impression: Anemia blood loss Continue GoLytely prep via the NGT ABG Interpretation ABG results: 05/04/25 10:00 ABG pH 7.38 ABG pCO2 44 ABG pO2 130 H ABG HCO3 26 ABG O2 Saturation 100 H ABG Base Excess 0 Assessment & Plan A&P Narrative # Anemia blood loss # Occult GI bleeding with FOBT positive likely requiring blood transfusion Agree with blood transfusion consent obtained for fiberoptic esophagogastroduodenoscopy with possible biopsy possible therapeutic intervention under intravenous moderate sedation If negative we will consider fiberoptic colonoscopy prior to discharge although patient is DNI DNR but the family does want those things done We will follow the patient Other medical problems include Coronary artery disease status post PTCA Parkinson disease Recurrent and chronic UTIs ICH requiring craniotomy Viral myocarditis Gross electrolyte abnormalities Thank you very much for the opportunity to participate in the care of this patient Time Spent With Patient Time: Total time spent is greater than 50% in coordination of care (as documented) at patient's floor/unit and/or counseling patient:
[2025-05-05] MEDS: MELATONIN 3 MG TABLET 6 MG PO (20:39)
[2025-05-05] MEDS: SERTRALINE HCL 25 MG TABLET 150 MG PO (20:40)
[2025-05-05] MEDS: DONEPEZIL HCL 5 MG TABLET PO (20:40)
[2025-05-05] MEDS: FINASTERIDE 5 MG TABLET PO (20:41)
[2025-05-05 21:24] LABS: Sodium 149 mMol/L (136-145)
[2025-05-05] MEDS: DEXTROSE 5%-WATER 1,000 ML 75 ML IV (23:04)
[2025-05-06] VITALS (7 sets, daily range): BP systolic 110–167; BP diastolic 61–80; PULSE 52–108; RESP 16–99; TEMP 36.2–36.7; O2SAT 93–100
[2025-05-06 02:11] LABS: Sodium 149 mMol/L (136-145)
[2025-05-06] MEDS: PIPER/TAZO 3.375 GM PREMIX 3.375 GM/50 ML BAG IV ×3 (05:16→22:40)
[2025-05-06] MEDS: BROMFENAC 0.075% LEFT EYE ×4 (05:18→22:52)
[2025-05-06] MEDS: MOXIFLOXACIN 0.5% LEFT EYE ×4 (05:18→22:52)
[2025-05-06] MEDS: [UNRECOGNIZED DRUG - OTHER] LEFT EYE ×4 (05:18→22:52)
[2025-05-06 06:22] LABS: Basophils % (Auto) 0 % (0-2.5); Eosinophils # (Auto) 0.2 Thou/mm3 (0.0-0.5); Eosinophils % (Auto) 4 % (0-10); Hematocrit 26.2 % (41.0-53.0); Hemoglobin 9.2 g/dL (13.5-16.0); Immature Granulocytes % (Auto) 0 % (0-0); Immature Granulocytes Auto 0.02 Thou/mm3 (0.00-0.00); Lymphocytes # (Auto) 0.5 Thou/mm3 (1.0-4.8); Lymphocytes % (Auto) 9 % (10-50); Mean Corpuscular HGB Conc 35.1 g/dl (31.0-37.0); Mean Corpuscular Volume 88 fL (80-100); Monocytes # (Auto) 0.7 Thou/mm3 (0.0-0.8); Monocytes % (Auto) 12 % (0-12); Neutrophils # (Auto) 4.2 Thou/mm3 (1.8-7.7); Neutrophils % (Auto) 74 % (37-80); Nucleated Red Blood Cell % 0 /100 WBC (0); Platelet Count 167 Thou/mm3 (140-440); RDW Standard Deviation 50.2 fL (35.1-43.9); Red Blood Count 2.97 Miln/mm3 (4.50-5.90); White Blood Count 5.7 Thou/mm3 (3.8-10.6)
[2025-05-06 07:52] LABS: Alanine Aminotransferase < 7 U/L (10-49); Albumin/Globulin Ratio 1.9 (1.2-2.2); Alkaline Phosphatase 69 U/L (46-116); Anion Gap -12 (7-16); BUN/Creatinine Ratio 17 Ratio (12-20); Bilirubin,Total 0.3 mg/dL (0.3-1.2); Blood Urea Nitrogen 12 mg/dL (9-23); Calcium 7.5 mg/dL (8.3-10.6); Calcium (Corrected) 8.3 mg/dL (8.5-10.1); Carbon Dioxide 32.2 mMol/L (20.0-31.0); Chloride 129 mMol/L (98-107); Creatinine (Component) 0.7 mg/dL (0.6-1.3); Estimated Creatinine Clearance 59.5 mL/min (>60); Globulin 1.6 gm/dL (2.3-3.5); Glucose 94 mg/dL (74-106); Osmolality,Calculated 295 (275-295); Potassium 3.8 mMol/L (3.4-5.1); Sodium 149 mMol/L (136-145); Total Protein 4.6 gm/dL (5.7-8.2); eGFR > 60 See Note
--- NOTE | 2025-05-06 08:19 | PC.NURSE ---
Called Dr. Avery and informed him pt's HR has been as low as 37 on 2 different occassions. No new orders received.
[2025-05-06] MEDS: PANTOPRAZOLE INJ 40 MG VIAL IVP ×2 (08:42→22:40)
[2025-05-06] MEDS: RASAGILINE MESYLATE 1 MG TABLET PO (08:49)
[2025-05-06] MEDS: BALSAM PERU/CASTOR OIL (Venelex) 60 GM TUBE TOP ×2 (08:52→22:41)
[2025-05-06] MEDS: DEXTROSE 5%-WATER 1,000 ML 75 ML IV (11:20)
--- NOTE | 2025-05-06 11:23 | PC.SS ---
[id number] SS consulted with MAURY Coleman regarding outpatient PT completing Parkinson's chair eval. SS informed patient would need to continue with their 05/12/25 appt. with outpatient PT. SS informed patient's daughter Geneva at bedside. Geneva informed SS stated she would be taking patient home tomorrow 05/07/25, regardless if colonoscopy is completed today. Geneva stated she would like for patient to be comfortable at home. [id number] SS informed by WAGNER Nevarez patient's daughter is requesting to speak to . SS met with patient's daughter Geneva Patten at bedside. Geneva stated she is patient's POA and medical surrogate decisionmaker for patient. Geneva stated she has already provided copy to registration. Patient's daughter Geneva inquired about having out patient PT complete assessment for Parkinson's Chair in house. Patient is already scheduled with Out Patient PT 05/12/25 1500 for Parkinson's chair evaluation. SS informed patient's daughter Geneva SS to follow up with response.
[2025-05-06] MEDS: CARBIDOPA LEVODOPA ENTACAPONE PO ×3 (11:24→22:53)
--- NOTE | 2025-05-06 11:44 | PC.SS ---
[id number] SS consulted with MAURY Coleman regarding outpatient PT completing an eval. for a Parkinson?s Chair. Patient needs to continue with 05/12 appt. with outpatient PT. SS informed patient?s daughter Geneva at bedside. Geneva informed SS she will be taking patient home tomorrow, 05/07/25 regardless if colonoscopy is completed today. Geneva stated she would like patient to be comfortable at home. [id number] SS informed patient?s daughter is requesting to speak to . Patient?s daughter Geneva Patten stated she is patient?s POA and she has already provided copy of document to registration. Geneva requested to know if patient can be seen by outpatient PT at bedside to complete an evaluation for a Parkinson?s chair. Patient already has appt. scheduled with outpatient PT for this for 05/12/25, 1500.
[2025-05-06] MEDS: ACETAMINOPHEN 325 MG TABLET 650 MG PO (12:21)
[2025-05-06 12:45] LABS: Sodium 147 mMol/L (136-145)
--- NOTE | 2025-05-06 14:59 | PC.SS ---
SS update: patient is pending colonoscopy.
[2025-05-06] MEDS: NA SU/NAHCO3/KC/PEG (Golytely) 4,000 ML BTL 4000 ML PO (15:25)
[2025-05-06 17:58] LABS: Sodium 145 mMol/L (136-145)
--- NOTE | 2025-05-06 18:33 | PD.RESPRO ---
Documentation for date of: 05/06/25 Subjective Subjective Interval history: Patient examined at bedside. Overnight he was started on D5W due to sodium 149. Today patient is more alert with eyes open. Has continuous movements not able to fully communicate properly. Sodium 149, chloride 129. Decrease rate of D5 to 75cc/hr. Daughter was at bedside and had extended conversation about patient's prognosis. States that she no longer wants him to undergo colonoscopy as he is agitated and wants to take him home. She is requesting home hospice. His prognosis was discussed and concern for malnutrition was adressed. The daughter is not concerned about his food intake stating that he was fine at home. Exam Vital Signs Temp Pulse Resp BP Pulse Ox O2 Del Method O2 Flow Rate 98.0 F 108 H 18 142/80 H 93 L Nasal Cannula 3 05/06/25 16:05/06/25 16:05/06/25 16:05/06/25 16:05/06/25 16:05/06/25 16:05/05/25 04:00 Narrative Exam General: Elderly male, cachectic, awake HEENT: NCAT, No JVD noted. Pupils are equal and reactive to light bilaterally Cardiovascular: Normal S1 and S2. Regular rate and rhythm. Respiratory: unable to asses due to continuous movement Abdomen: unable to asses due to continuous movement Skin: Warm to touch, dry, no rashes noted, purpura throughout upper extremities. Musculoskeletal: No gross injuries. No pitting edema Neuro: moving continuously, withdraws to pain, no focal neuro deficits. Eyes open, grunting responses Objective Labs 05/07/25 04:40 05/07/25 04:40 Labs: Laboratory Results - last 24 hr 05/05/25 05/06/25 05/06/25 20:36 01:42 05:44 WBC 5.7 RBC 2.97 L Hgb 9.2 L Hct 26.2 L MCV 88 MCH 31.0 MCHC 35.1 RDW Std Deviation 50.2 H Plt Count 167 Neut % (Auto) 74 Lymph % (Auto) 9 L [place] % (Auto) 12 Eos % (Auto) 4 Baso % (Auto) 0 Neut # (Auto) 4.2 Lymph # (Auto) 0.5 L [place] # (Auto) 0.7 Eos # (Auto) 0.2 Baso # (Auto) 0.0 Immature Gran # (Auto) 0.02 H Absolute Nucleated RBC 0.00 Immature Gran % 0 Nucleated RBC % 0 Sodium 149 H 149 H Potassium Chloride Carbon Dioxide Anion Gap BUN Creatinine Estim Creat Clear Calc eGFR BUN/Creatinine Ratio Glucose Calculated Osmolality Calcium Corrected Calcium Total Bilirubin ALT Alkaline Phosphatase Total Protein Albumin Globulin Albumin/Globulin Ratio 05/06/25 05/06/25 05/06/25 06:50 11:58 17:39 WBC RBC Hgb Hct MCV MCH MCHC RDW Std Deviation Plt Count Neut % (Auto) Lymph % (Auto) [place] % (Auto) Eos % (Auto) Baso % (Auto) Neut # (Auto) Lymph # (Auto) [place] # (Auto) Eos # (Auto) Baso # (Auto) Immature Gran # (Auto) Absolute Nucleated RBC Immature Gran % Nucleated RBC % Sodium 149 H 147 H 145 Potassium 3.8 Chloride 129 H* Carbon Dioxide 32.2 H Anion Gap -12 L BUN 12 Creatinine 0.7 Estim Creat Clear Calc 59.5 L eGFR > 60 BUN/Creatinine Ratio 17 Glucose 94 Calculated Osmolality 295 Calcium 7.5 L Corrected Calcium 8.3 L Total Bilirubin 0.3 ALT < 7 L Alkaline Phosphatase 69 Total Protein 4.6 L Albumin 3.0 L Globulin 1.6 L Albumin/Globulin Ratio 1.9 ABG Interpretation ABG results: 05/04/25 10:00 ABG pH 7.38 ABG pCO2 44 ABG pO2 130 H ABG HCO3 26 ABG O2 Saturation 100 H ABG Base Excess 0 Quality Measures Quality Measures none Advance care planning discussed with:: child Assessment & Plan Assessment Current Active Medications: Generic Name Dose Route Start Last Admin Trade Name Felipe PRN Reason Stop Dose Admin Acetaminophen 650 mg 05/03/25 09:54 05/06/25 12:21 Acetaminophen 325 Mg Tablet PO 06/02/25 09:53 650 mg Q6H PRN Administration Fever >100.3 or pain Balsam Edgar/Blackstone Oil 0 gm 05/03/25 21:00 05/06/25 08:52 Balsam Edgar/Blackstone Oil (Venelex) 60 Gm Tube TOP 06/02/25 20:59 1 applicatio BID BEAR Administration Clopidogrel Bisulfate 75 mg 05/06/25 14:30 05/06/25 15:27 Clopidogrel Bisulfate 75 Mg Tablet NG 06/05/25 14:29 Not Given QDAY BEAR Prednisolone 0 ea 05/04/25 09:30 05/06/25 17:58 Phosphate 1% - LEFT EYE 06/03/25 09:29 1 solution Moxifloxacin 0.5%- QID BEAR Administration Bromfenac 0.075% Eye Drops Rasagiline Mesylate 0 ea 05/04/25 09:30 05/06/25 08:49 1 Mg Tablet PO 06/03/25 09:29 1 tablet QDAY BEAR Administration Carbidopa-Levodopa- 0 ea 05/04/25 12:00 05/06/25 17:57 Entacapone 37.5-150- PO 06/03/25 11:59 1 tablet 200 Mg QID BEAR Administration Donepezil HCl 5 mg 05/04/25 21:00 05/05/25 20:40 Donepezil Hcl 5 Mg Tablet PO 06/03/25 20:59 5 mg HS BEAR Administration Ferrous Sulfate 325 mg 05/04/25 09:00 05/06/25 08:37 Ferrous Sulf 325 Mg Tablet PO 06/03/25 08:59 Not Given QDAY BEAR Finasteride 5 mg 05/03/25 21:00 05/05/25 20:41 Finasteride 5 Mg Tablet PO 06/02/25 20:59 5 mg HS BEAR Administration Piperacillin/Tazobactam/Dextrose 3.375 gm in 50 mls @ 12.5 mls/hr 05/03/25 14:29 05/06/25 14:02 Zosyn IV 05/10/25 14:28 12.5 mls/hr Q8HR BEAR Administration Dextrose 1,000 mls @ 75 mls/hr 05/06/25 10:51 05/06/25 11:20 D5w IV 05/07/25 00:10 75 mls/hr .[id number] BEAR Administration Melatonin 6 mg 05/04/25 21:00 05/05/25 20:39 Melatonin 3 Mg Tablet PO 06/03/25 20:59 6 mg HS BEAR Administration Protocol Menthol/Methyl Salicylate 0 gm 05/05/25 07:42 Methyl Salic/Menthol Oint 28 Gm Tube TOP 06/04/25 07:35 Q8H PRN LOCALIZED PAIN Protocol Ondansetron HCl 4 mg 05/03/25 09:54 Ondansetron Inj 2 Mg/Ml Inj 2 Ml IVP 06/02/25 09:53 Q6H PRN NAUSEA OR VOMITING Protocol Pantoprazole Sodium 40 mg 05/04/25 09:00 05/06/25 08:42 Pantoprazole Inj 40 Mg Vial IVP 06/03/25 08:59 40 mg Q12HR BEAR Administration Quetiapine Fumarate 25 mg 05/03/25 15:11 Quetiapine Fumarate 25 Mg Tablet PO 06/02/25 15:10 QDAY PRN increased anxiety Quetiapine Fumarate 50 mg 05/06/25 21:00 Quetiapine Fumarate 25 Mg Tablet NG 06/05/25 20:59 HS BEAR Sertraline HCl 150 mg 05/04/25 21:00 05/05/25 20:40 Sertraline Hcl 25 Mg Tablet PO 06/03/25 20:59 150 mg HS BEAR Administration Plan 85-year-old male with past medical history of CAD s/p stent, HFrEF (EF 30 to 35%), Parkinson's disease, traumatic intracranial hemorrhage status postcraniotomy, chronic urinary retention s/p suprapubic catheter, Hx of GI bleed, and skin cancer was admitted to the hospital on 05/03/2025 for acute blood loss anemia likely secondary to possible GI bleed. #Acute blood loss anemia #Upper GI bleed Patient came in with a hemoglobin of 6.7, fecal occult blood was positive patient does have a history of previous GI bleeds. EGD in past has been negative and were unable to find a source of bleeding. s/p 2 units prbc. EGD done 05/05/25 revealed esophagitis and gastritis. No bleeding. -Dr. Siddiqui consulted, appreciate recs--possible colonoscopy -Go lytely prep through NG tube -Pantoprazole 40 mg BID - Hold NSAIDs, antiplatelets -daily CBC -transfuse if Hb <7 #SHANTA on CKD #Electrolyte imbalance #Hypernatremia #Hyperchloremia #Hypokalemia Patient does have some underlying CKD, but previously his creatinine was around 1.2. Poor oral intake per caregiver at bedisde. Extremely cachectic. Sodium was 147 and his chloride was 141 on admission. -start free water flushes through NG tube after go lytely -Avoid nephrotoxic agents -Renally dose medications -Will continue to monitor -replete as needed -Monitor ANGELIQUE's #Complicated UTI, staph aureus #Hx of chronic urinary retention s/p suprapubic catheter #Hx BPH Patient's UA was positive for leukocytes esterase and nitrates as well as bilirubin and blood, but negative for RBCs or bacteria. Recent history of course of antibiotics. History of multidrug-resistant organisms with the most recent urine culture on 04/01/2025 showing the patient had Enterobacter aerogenes, Pseudomonas aeruginosa's, and Klebsiella pneumoniae, which were sensitive to either the cefepime, ceftazidime, Cipro, levofloxacin, Zosyn, and tobramycin. Urine culture positive for staph aureus ?IV Zosyn 3.375 TID -daily CBC - Resume finasteride 5 mg HS #Failure to thrive #Malnutrition Most likely due to worsening Parkinson's which she was diagnosed with for about 15 years ago. Patient takes medication and is usually been able to eat properly but since past week especially in past couple days, he has been declining. BMI 17 severely cachectic. Caregiver tries to supplement with Ensure. ? Speech eval--suggesting to crush PO meds in puree and have him on dysphagia II diet when ready to advance. ? IV alternatives -continue clear liquid diet ?Dietary team consulted-->Pt meets criteria for severe protein calorie malnutrition, <50% of estimated energy requirements >5days, 14% wt loss [id number]. #Hx CAD s/p stents #Hx Parkinsons -Hold Plavix in setting of hematuria ? Resume carbidopa?levodopa?entacapone, Donepezil 5mg HS, Rasagiline 1mg QD Health maintenance: Dispo: medsurg GI bleed FEN: clear liquid diet DVT prophylaxis:scds CODE STATUS: Full code The patient's management plan was discussed with my attending physician Dr. Hodge. Evelyn Bhardwaj, PGY-1 Attending Provider Attestation/Addendum I have examined the patient, reviewed labs and imaging findings, discussed the case with the resident(s), and reviewed entered orders. I agree with the plan of care as outlined in this note, with these additional summaries/recommendations: Patient and daughter seen at bedside. No acute overnight events. Patient is status post EGD without source of bleeding identified. NG tube in place and patient receiving GoLytely. He has now received two jugs of GoLytely and may require additional if not cleared. Gastroenterology following, recommendations appreciated. Hemoglobin stable at 9.2 today. Mild hypernatremia present and likely secondary to dehydration. We will resume diet after colonoscopy. Continue IV maintenance fluids. Continue IV Zosyn for complicated urinary tract infection. Renal function continues to improve. Avoid nephrotoxic agents and renally dose medications. Patient also noted to have failure to thrive and speech therapy plus dietary following. Overall prognosis guarded. Resume home Parkinson's medications when able. Please see residents note for additional details and management. Dr. Naveen MD
--- NOTE | 2025-05-06 19:42 | PD.IMPROG ---
Documentation for date of: 05/06/25 Subjective Subjective Interval history: Colonoscopy canceled patient is clear spoke with the family Exam Vital Signs Temp Pulse Resp BP Pulse Ox O2 Del Method O2 Flow Rate 98.0 F 108 H 18 142/80 H 93 L Nasal Cannula 3 05/06/25 16:00 05/06/25 16:00 05/06/25 16:00 05/06/25 16:00 05/06/25 16:00 05/06/25 16:00 05/05/25 04:00 Objective Labs 05/07/25 04:40 05/07/25 20:18 Labs: Laboratory Results - last 24 hr 05/05/25 05/06/25 05/06/25 20:36 01:42 05:44 WBC 5.7 RBC 2.97 L Hgb 9.2 L Hct 26.2 L MCV 88 MCH 31.0 MCHC 35.1 RDW Std Deviation 50.2 H Plt Count 167 Neut % (Auto) 74 Lymph % (Auto) 9 L [place] % (Auto) 12 Eos % (Auto) 4 Baso % (Auto) 0 Neut # (Auto) 4.2 Lymph # (Auto) 0.5 L [place] # (Auto) 0.7 Eos # (Auto) 0.2 Baso # (Auto) 0.0 Immature Gran # (Auto) 0.02 H Absolute Nucleated RBC 0.00 Immature Gran % 0 Nucleated RBC % 0 Sodium 149 H 149 H Potassium Chloride Carbon Dioxide Anion Gap BUN Creatinine Estim Creat Clear Calc eGFR BUN/Creatinine Ratio Glucose Calculated Osmolality Calcium Corrected Calcium Total Bilirubin ALT Alkaline Phosphatase Total Protein Albumin Globulin Albumin/Globulin Ratio 05/06/25 05/06/25 05/06/25 06:50 11:58 17:39 WBC RBC Hgb Hct MCV MCH MCHC RDW Std Deviation Plt Count Neut % (Auto) Lymph % (Auto) [place] % (Auto) Eos % (Auto) Baso % (Auto) Neut # (Auto) Lymph # (Auto) [place] # (Auto) Eos # (Auto) Baso # (Auto) Immature Gran # (Auto) Absolute Nucleated RBC Immature Gran % Nucleated RBC % Sodium 149 H 147 H 145 Potassium 3.8 Chloride 129 H* Carbon Dioxide 32.2 H Anion Gap -12 L BUN 12 Creatinine 0.7 Estim Creat Clear Calc 59.5 L eGFR > 60 BUN/Creatinine Ratio 17 Glucose 94 Calculated Osmolality 295 Calcium 7.5 L Corrected Calcium 8.3 L Total Bilirubin 0.3 ALT < 7 L Alkaline Phosphatase 69 Total Protein 4.6 L Albumin 3.0 L Globulin 1.6 L Albumin/Globulin Ratio 1.9 Impressions Impression: Occult GI bleeding stool impaction Additional GoLytely ABG Interpretation ABG results: 05/04/25 10:00 ABG pH 7.38 ABG pCO2 44 ABG pO2 130 H ABG HCO3 26 ABG O2 Saturation 100 H ABG Base Excess 0 Assessment & Plan A&P Narrative # Anemia blood loss # Occult GI bleeding with FOBT positive likely requiring blood transfusion Agree with blood transfusion consent obtained for fiberoptic esophagogastroduodenoscopy with possible biopsy possible therapeutic intervention under intravenous moderate sedation If negative we will consider fiberoptic colonoscopy prior to discharge although patient is DNI DNR but the family does want those things done We will follow the patient Other medical problems include Coronary artery disease status post PTCA Parkinson disease Recurrent and chronic UTIs ICH requiring craniotomy Viral myocarditis Gross electrolyte abnormalities Thank you very much for the opportunity to participate in the care of this patient Time Spent With Patient Time: Total time spent is greater than 50% in coordination of care (as documented) at patient's floor/unit and/or counseling patient:
[2025-05-06] MEDS: MELATONIN 3 MG TABLET 6 MG PO (22:40)
[2025-05-06] MEDS: QUEtiapine FUMARATE 25 MG TABLET 50 MG NG (22:41)
[2025-05-06] MEDS: FINASTERIDE 5 MG TABLET PO (22:41)
[2025-05-06] MEDS: DONEPEZIL HCL 5 MG TABLET PO (22:41)
[2025-05-06] MEDS: SERTRALINE HCL 25 MG TABLET 150 MG PO (22:51)
[2025-05-07] VITALS (9 sets, daily range): BP systolic 104–148; BP diastolic 57–80; PULSE 61–130; RESP 15–20; TEMP 35.8–36.6; O2SAT 94–100
[2025-05-07 01:26] LABS: Sodium 143 mMol/L (136-145)
[2025-05-07] MEDS: NA SU/NAHCO3/KC/PEG (Golytely) 4,000 ML BTL 4000 ML PO ×2 (04:09→15:37)
[2025-05-07] MEDS: BROMFENAC 0.075% LEFT EYE ×4 (05:36→20:58)
[2025-05-07] MEDS: [UNRECOGNIZED DRUG - OTHER] LEFT EYE ×4 (05:36→20:58)
[2025-05-07] MEDS: MOXIFLOXACIN 0.5% LEFT EYE ×4 (05:36→20:58)
[2025-05-07] MEDS: PIPER/TAZO 3.375 GM PREMIX 3.375 GM/50 ML BAG IV (05:36)
[2025-05-07] MEDS: CARBIDOPA LEVODOPA ENTACAPONE PO ×4 (05:37→20:57)
[2025-05-07 06:10] LABS: Basophils % (Auto) 1 % (0-2.5); Eosinophils # (Auto) 0.3 Thou/mm3 (0.0-0.5); Eosinophils % (Auto) 7 % (0-10); Hematocrit 26.6 % (41.0-53.0); Hemoglobin 9.3 g/dL (13.5-16.0); Immature Granulocytes % (Auto) 0 % (0-0); Immature Granulocytes Auto 0.01 Thou/mm3 (0.00-0.00); Lymphocytes # (Auto) 0.7 Thou/mm3 (1.0-4.8); Lymphocytes % (Auto) 15 % (10-50); Mean Corpuscular Hemoglobin 30.4 pg (25.0-35.0); Mean Corpuscular Volume 87 fL (80-100); Monocytes # (Auto) 0.6 Thou/mm3 (0.0-0.8); Monocytes % (Auto) 14 % (0-12); Neutrophils # (Auto) 2.9 Thou/mm3 (1.8-7.7); Neutrophils % (Auto) 64 % (37-80); Nucleated Red Blood Cell % 0 /100 WBC (0); Platelet Count 142 Thou/mm3 (140-440); RDW Standard Deviation 48.2 fL (35.1-43.9); Red Blood Count 3.06 Miln/mm3 (4.50-5.90); White Blood Count 4.6 Thou/mm3 (3.8-10.6)
[2025-05-07 07:03] LABS: Alanine Aminotransferase < 7 U/L (10-49); Albumin/Globulin Ratio 1.8 (1.2-2.2); Alkaline Phosphatase 67 U/L (46-116); Anion Gap -9 (7-16); BUN/Creatinine Ratio 9 Ratio (12-20); Bilirubin,Total 0.4 mg/dL (0.3-1.2); Blood Urea Nitrogen 6 mg/dL (9-23); Calcium 7.5 mg/dL (8.3-10.6); Calcium (Corrected) 8.3 mg/dL (8.5-10.1); Carbon Dioxide 32.9 mMol/L (20.0-31.0); Chloride 123 mMol/L (98-107); Creatinine (Component) 0.7 mg/dL (0.6-1.3); Estimated Creatinine Clearance 68.8 mL/min (>60); Globulin 1.7 gm/dL (2.3-3.5); Glucose 77 mg/dL (74-106); Osmolality,Calculated 289 (275-295); Potassium 2.9 mMol/L (3.4-5.1); Sodium 147 mMol/L (136-145); Total Protein 4.7 gm/dL (5.7-8.2); eGFR > 60 See Note
[2025-05-07] MEDS: RASAGILINE MESYLATE 1 MG TABLET PO (08:49)
[2025-05-07] MEDS: FERROUS SULF 325 MG TABLET PO (08:50)
[2025-05-07] MEDS: PANTOPRAZOLE INJ 40 MG VIAL IVP ×2 (08:50→20:51)
[2025-05-07] MEDS: CLOPIDOGREL BISULFATE 75 MG TABLET NG (08:50)
[2025-05-07] MEDS: POTASSIUM CHL 10 mEq IVPB 10 MEQ/100 ML BAG 100 MEQ IV ×4 (08:51→12:15)
[2025-05-07] MEDS: POTASSIUM CHLORIDE 20 mEq TABCR 40 MEQ PO (08:52)
[2025-05-07] MEDS: DEXTROSE 5%-WATER 1,000 ML 75 ML IV ×2 (08:57→20:50)
--- NOTE | 2025-05-07 09:11 | PC.SS ---
Addendum entered by MAURY Maria 05/07/25 14:26: Rounding note: patient pending colonoscopy. Planned for late discharge home with [facility] this evening. Addendum entered by MAURY Maria 05/07/25 09:33: Updated Nyla on the discharge disposition, home with hospice services. Family to transport the patient home. Addendum entered by MAURY Maria 05/07/25 09:29: SS update: sent home hospice referral to [facility] via [facility] per family's request. Notified them the patient will d/c home after colonoscopy procedure as patient and family are eager to get the patient home and get him comfortable. Family informs no current needs of DME before discharge. Patient's daughter Geneva, confirms the patient has home 02 and family informs family will transport the patient home via private vehicle. Original Note: SS follow up: per medical team the patient and family are requesting home hospice services. Spoke with patient's daughter Geneva who confirmed this. She identified [facility] as their preferred agency. Violetta informs they would like to take patient home today following colonoscopy procedure.
[2025-05-07] MEDS: BALSAM PERU/CASTOR OIL (Venelex) 60 GM TUBE TOP ×2 (10:00→20:58)
[2025-05-07] MEDS: ACETAMINOPHEN 325 MG TABLET 650 MG PO (10:39)
[2025-05-07] MEDS: cefTRIAXone/D5w 1gm IV premix 1 GM/50 ML BAG IV (11:26)
[2025-05-07] MEDS: CALCIUM CARBONATE 600 MG TABLET NG (11:26)
[2025-05-07 12:02] LABS: Anion Gap -11 (7-16); BUN/Creatinine Ratio 8 Ratio (12-20); Blood Urea Nitrogen < 5 mg/dL (9-23); Calcium 7.5 mg/dL (8.3-10.6); Carbon Dioxide 32.6 mMol/L (20.0-31.0); Chloride 123 mMol/L (98-107); Creatinine (Component) 0.6 mg/dL (0.6-1.3); Estimated Creatinine Clearance 80.2 mL/min (>60); Glucose 93 mg/dL (74-106); Osmolality,Calculated 285 (275-295); Potassium 3.5 mMol/L (3.4-5.1); Sodium 145 mMol/L (136-145); eGFR > 60 See Note
--- NOTE | 2025-05-07 14:06 | PC.PT ---
Patient will be transferring home with hospice services. Will cancel PT evaluation.
--- NOTE | 2025-05-07 16:18 | ESPR_ITS ---
Documentation for date of: 05/07/25 Subjective Subjective Interval history: Patient examined at bedside. No events overnight. Today patient is more awake but only able to state his full name. At bedside, he had his glasses on and was looking at pictures with his caregiver. Patient is still on GoLytely for possible colonoscopy today. Per GI, he was severely impacted with stool and bowel prep taking more time than usual. Hemoglobin stable 9.3, sodium 147, potassium 2.9. Most likely due to GI loss and and recent decreased oral intake. Electrolytes repleted and will continue D5W at 70 cc/h for hypernatremia. Goal of 140. Repeat BMP at 8pm and 1 am. De-escalated Zosyn to ceftriaxone for treatment of Staph aureus UTI. Concern for recent decline and failure to thrive. Patient has advanced Parkinson's and not meeting nutritional requirements. Patient's daughter has decided to pursue home hospice. PT was canceled. Exam Vital Signs Temp Pulse Resp BP Pulse Ox O2 Del Method O2 Flow Rate 96.5 F L 61 17 142/80 H 97 Nasal Cannula 3 05/07/25 12:25 05/07/25 12:05/07/25 12:05/07/25 12:25 05/07/25 12:25 05/07/25 12:05/07/25 12:25 Narrative Exam General: Elderly male, cachectic, awake HEENT: NCAT, No JVD noted. Pupils are equal and reactive to light bilaterally Cardiovascular: Normal S1 and S2. Regular rate and rhythm. Respiratory: unable to asses due to continuous movement Abdomen: unable to asses due to continuous movement Skin: Warm to touch, dry, no rashes noted, purpura throughout upper extremities. Musculoskeletal: No gross injuries. No pitting edema Neuro: moving continuously, withdraws to pain, no focal neuro deficits. Eyes open, grunting responses Objective Labs 05/08/25 04:45 05/08/25 04:45 Labs: Laboratory Results - last 24 hr 05/06/25 05/07/25 05/07/25 17:39 00:28 04:40 WBC 4.6 RBC 3.06 L Hgb 9.3 L Hct 26.6 L MCV 87 MCH 30.4 MCHC 35.0 RDW Std Deviation 48.2 H Plt Count 142 Neut % (Auto) 64 Lymph % (Auto) 15 [place] % (Auto) 14 H Eos % (Auto) 7 Baso % (Auto) 1 Neut # (Auto) 2.9 Lymph # (Auto) 0.7 L [place] # (Auto) 0.6 Eos # (Auto) 0.3 Baso # (Auto) 0.0 Immature Gran # (Auto) 0.01 H Absolute Nucleated RBC 0.00 Immature Gran % 0 Nucleated RBC % 0 Sodium 145 143 147 H Potassium 2.9 L D Chloride 123 H* Carbon Dioxide 32.9 H Anion Gap -9 L BUN 6 L Creatinine 0.7 Estim Creat Clear Calc 68.8 eGFR > 60 BUN/Creatinine Ratio 9 L Glucose 77 Calculated Osmolality 289 Calcium 7.5 L Corrected Calcium 8.3 L Total Bilirubin 0.4 ALT < 7 L Alkaline Phosphatase 67 Total Protein 4.7 L Albumin 3.0 L Globulin 1.7 L Albumin/Globulin Ratio 1.8 05/07/25 11:30 WBC RBC Hgb Hct MCV MCH MCHC RDW Std Deviation Plt Count Neut % (Auto) Lymph % (Auto) [place] % (Auto) Eos % (Auto) Baso % (Auto) Neut # (Auto) Lymph # (Auto) [place] # (Auto) Eos # (Auto) Baso # (Auto) Immature Gran # (Auto) Absolute Nucleated RBC Immature Gran % Nucleated RBC % Sodium 145 Potassium 3.5 D Chloride 123 H* Carbon Dioxide 32.6 H Anion Gap -11 L BUN < 5 L Creatinine 0.6 Estim Creat Clear Calc 80.2 eGFR > 60 BUN/Creatinine Ratio 8 L Glucose 93 Calculated Osmolality 285 Calcium 7.5 L Corrected Calcium Total Bilirubin ALT Alkaline Phosphatase Total Protein Albumin Globulin Albumin/Globulin Ratio ABG Interpretation ABG results: 05/04/25 10:00 ABG pH 7.38 ABG pCO2 44 ABG pO2 130 H ABG HCO3 26 ABG O2 Saturation 100 H ABG Base Excess 0 Quality Measures Quality Measures none Advance care planning discussed with:: child Assessment & Plan Assessment Current Active Medications: Generic Name Dose Route Start Last Admin Trade Name Freq PRN Reason Stop Dose Admin Acetaminophen 650 mg 05/03/25 09:54 05/07/25 10:39 Acetaminophen 325 Mg Tablet PO 06/02/25 09:53 650 mg Q6H PRN Administration Fever >100.3 or pain Balsam [place] Oil 0 gm 05/03/25 21:00 05/06/25 22:41 Balsam [place] Oil (Venelex) 60 Gm Tube TOP 06/02/25 20:59 1 applicatio BID BEAR Administration Clopidogrel Bisulfate 75 mg 05/06/25 14:30 05/07/25 08:50 Clopidogrel Bisulfate 75 Mg Tablet NG 06/05/25 14:29 75 mg QDAY BEAR Administration Prednisolone 0 ea 05/04/25 09:30 05/07/25 12:00 Phosphate 1% - LEFT EYE 06/03/25 09:29 1 solution Moxifloxacin 0.5%- QID BEAR Administration Bromfenac 0.075% Eye Drops Rasagiline Mesylate 0 ea 05/04/25 09:30 05/07/25 08:49 1 Mg Tablet PO 06/03/25 09:29 1 tablet QDAY BEAR Administration Carbidopa-Levodopa- 0 ea 05/04/25 12:00 05/07/25 12:00 Entacapone 37.5-150- PO 06/03/25 11:59 1 tablet 200 Mg QID BEAR Administration Donepezil HCl 5 mg 05/04/25 21:00 05/06/25 22:41 Donepezil Hcl 5 Mg Tablet PO 06/03/25 20:59 5 mg HS BEAR Administration Ferrous Sulfate 325 mg 05/04/25 09:00 05/07/25 08:50 Ferrous Sulf 325 Mg Tablet PO 06/03/25 08:59 325 mg QDAY BEAR Administration Finasteride 5 mg 05/03/25 21:00 05/06/25 22:41 Finasteride 5 Mg Tablet PO 06/02/25 20:59 5 mg HS BEAR Administration Dextrose 1,000 mls @ 75 mls/hr 05/07/25 08:30 05/07/25 08:57 D5w IV 06/06/25 08:29 75 mls/hr .[id number] BEAR Administration Ceftriaxone Sodium/Dextrose 1 gm in 50 mls @ 100 mls/hr 05/07/25 11:03 05/07/25 11:26 Rocephin/D5w 1gm Iv Premix IV 05/14/25 11:02 100 mls/hr QDAY BEAR Administration Melatonin 6 mg 05/04/25 21:00 05/06/25 22:40 Melatonin 3 Mg Tablet PO 06/03/25 20:59 6 mg HS BEAR Administration Protocol Menthol/Methyl Salicylate 0 gm 05/05/25 07:42 Methyl Salic/Menthol Oint 28 Gm Tube TOP 06/04/25 07:35 Q8H PRN LOCALIZED PAIN Protocol Ondansetron HCl 4 mg 05/03/25 09:54 Ondansetron Inj 2 Mg/Ml Inj 2 Ml IVP 06/02/25 09:53 Q6H PRN NAUSEA OR VOMITING Protocol Pantoprazole Sodium 40 mg 05/04/25 09:00 05/07/25 08:50 Pantoprazole Inj 40 Mg Vial IVP 06/03/25 08:59 40 mg Q12HR BEAR Administration Quetiapine Fumarate 25 mg 05/03/25 15:11 Quetiapine Fumarate 25 Mg Tablet PO 06/02/25 15:10 QDAY PRN increased anxiety Quetiapine Fumarate 50 mg 05/06/25 21:00 05/06/25 22:41 Quetiapine Fumarate 25 Mg Tablet NG 06/05/25 20:59 50 mg HS BEAR Administration Sertraline HCl 150 mg 05/04/25 21:00 05/06/25 22:51 Sertraline Hcl 25 Mg Tablet PO 06/03/25 20:59 150 mg HS BEAR Administration Plan 85-year-old male with past medical history of CAD s/p stent, HFrEF (EF 30 to 35%), Parkinson's disease, traumatic intracranial hemorrhage status postcraniotomy, chronic urinary retention s/p suprapubic catheter, Hx of GI bleed, and skin cancer was admitted to the hospital on 05/03/2025 for acute blood loss anemia likely secondary to possible GI bleed. #Acute blood loss anemia #Upper GI bleed Patient came in with a hemoglobin of 6.7, fecal occult blood was positive patient does have a history of previous GI bleeds. EGD in past has been negative and were unable to find a source of bleeding. s/p 2 units prbc. EGD done 05/05/25 revealed esophagitis and gastritis. No bleeding. -Dr. Siddiqui consulted, appreciate recs--possible colonoscopy -Go lytely prep through NG tube -Pantoprazole 40 mg BID - Hold NSAIDs, antiplatelets -daily CBC -transfuse if Hb <7 #SHANTA (resolved) on CKD #Electrolyte imbalances #Hypernatremia #Hyperchloremia #Hypokalemia Patient does have some underlying CKD, but previously his creatinine was around 1.2. Poor oral intake per caregiver at [facility]. Extremely cachectic. Sodium was 147 and his chloride was 141 on admission. Most likely due to GI loss and and recent decreased oral intake. -Electrolytes repleted and will continue D5W at 70 cc/h for hypernatremia. -Goal of 140. Repeat BMP at 8pm and 1 am. -Avoid nephrotoxic agents -Renally dose medications -Will continue to monitor -replete as needed -Monitor ANGELIQUE's #Complicated UTI, staph aureus #Hx of chronic urinary retention s/p suprapubic catheter #Hx BPH Patient's UA was positive for leukocytes esterase and nitrates as well as bilirubin and blood, but negative for RBCs or bacteria. Recent history of course of antibiotics. History of multidrug-resistant organisms with the most recent urine culture on 04/01/2025 showing the patient had Enterobacter aerogenes, Pseudomonas aeruginosa's, and Klebsiella pneumoniae, which were sensitive to either the cefepime, ceftazidime, Cipro, levofloxacin, Zosyn, and tobramycin. Urine culture positive for staph aureus ?De-escalated Zosyn to ceftriaxone -daily CBC - Resume finasteride 5 mg HS #Failure to thrive #Malnutrition Most likely due to worsening Parkinson's which she was diagnosed with for about 15 years ago. Patient takes medication and is usually been able to eat properly but since past week especially in past couple days, he has been declining. BMI 17 severely cachectic. Caregiver tries to supplement with Ensure. ? Speech eval--suggesting to crush PO meds in puree and have him on dysphagia II diet when ready to advance. ? IV alternatives -continue clear liquid diet ?Dietary team consulted-->Pt meets criteria for severe protein calorie malnutrition, <50% of estimated energy requirements >5days, 14% wt loss [id number]. #Hx CAD s/p stents #Hx Parkinsons -Hold Plavix in setting of hematuria ? Resume carbidopa?levodopa?entacapone, Donepezil 5mg HS, Rasagiline 1mg QD Health maintenance: Dispo: medsurg GI bleed, pending colonoscopy, dc on home hospice FEN: clear liquid diet DVT prophylaxis:scds CODE STATUS: Full code The patient's management plan was discussed with my attending physician Dr. Hodge. Evelyn Bhardwaj, PGY-1 Attending Provider Attestation/Addendum I have examined the patient, reviewed labs and imaging findings, discussed the case with the resident(s), and reviewed entered orders. I agree with the plan of care as outlined in this note, with these additional summaries/recommendations: Patient and daughter seen at bedside. No acute overnight events. His mentation is improving and he appears more alert today. Per daughter he is almost back to baseline mental status. Patient is status post EGD without source of bleeding identified. NG tube in place and patient receiving GoLytely. He has now received two jugs of GoLytely and still not cleared. He is on his third jug of GoLytely. Gastroenterology following, recommendations appreciated. Hemoglobin stable at 9.3 today. Electrolyte abnormalities present today with hypernatremia, hypokalemia, and hypocalcemia. Replacement was given and repeat levels this afternoon. We will resume diet after colonoscopy. Continue IV maintenance fluids. Continue IV Rocephin for complicated urinary tract infection. Renal function continues to improve. Avoid nephrotoxic agents and renally dose medications. Patient also noted to have failure to thrive and speech therapy plus dietary following. Overall prognosis guarded. Resume home Parkinson's medications when able. Please see residents note for additional details and management. Dr. Naveen MD
[2025-05-07] MEDS: SERTRALINE HCL 25 MG TABLET 150 MG PO (20:56)
[2025-05-07] MEDS: FINASTERIDE 5 MG TABLET PO (20:57)
[2025-05-07] MEDS: QUEtiapine FUMARATE 25 MG TABLET 50 MG NG (20:57)
[2025-05-07] MEDS: DONEPEZIL HCL 5 MG TABLET PO (20:57)
[2025-05-07] MEDS: MELATONIN 3 MG TABLET 6 MG PO (20:57)
[2025-05-07] MEDS: POTASSIUM CHLORIDE 10% 20 MEQ/15 ML UDC 40 MEQ GT (20:58)
[2025-05-07 21:23] LABS: Anion Gap -10 (7-16); BUN/Creatinine Ratio 8 Ratio (12-20); Blood Urea Nitrogen < 5 mg/dL (9-23); Calcium 7.1 mg/dL (8.3-10.6); Carbon Dioxide 31.9 mMol/L (20.0-31.0); Chloride 121 mMol/L (98-107); Creatinine (Component) 0.6 mg/dL (0.6-1.3); Estimated Creatinine Clearance 80.2 mL/min (>60); Glucose 127 mg/dL (74-106); Osmolality,Calculated 284 (275-295); Potassium 3.3 mMol/L (3.4-5.1); Sodium 143 mMol/L (136-145); eGFR > 60 See Note
--- NOTE | 2025-05-07 22:14 | ESPR_ITS ---
Documentation for date of: 05/07/25 Subjective Subjective Interval history: Patient evaluated Colonoscopy canceled the patient is still not clear Exam Vital Signs Temp Pulse Resp BP Pulse Ox O2 Del Method O2 Flow Rate 97.2 F 130 H 20 104/64 99 Nasal Cannula 2 05/07/25 20:00 05/07/25 20:25 05/07/25 20:25 05/07/25 20:00 05/07/25 20:25 05/07/25 20:00 05/07/25 20:25 Objective Labs 05/07/25 04:40 05/07/25 20:18 Labs: Laboratory Results - last 24 hr 05/07/25 05/07/25 05/07/25 00:28 04:40 11:30 WBC 4.6 RBC 3.06 L Hgb 9.3 L Hct 26.6 L MCV 87 MCH 30.4 MCHC 35.0 RDW Std Deviation 48.2 H Plt Count 142 Neut % (Auto) 64 Lymph % (Auto) 15 [place] % (Auto) 14 H Eos % (Auto) 7 Baso % (Auto) 1 Neut # (Auto) 2.9 Lymph # (Auto) 0.7 L [place] # (Auto) 0.6 Eos # (Auto) 0.3 Baso # (Auto) 0.0 Immature Gran # (Auto) 0.01 H Absolute Nucleated RBC 0.00 Immature Gran % 0 Nucleated RBC % 0 Sodium 143 147 H 145 Potassium 2.9 L D 3.5 D Chloride 123 H* 123 H* Carbon Dioxide 32.9 H 32.6 H Anion Gap -9 L -11 L BUN 6 L < 5 L Creatinine 0.7 0.6 Estim Creat Clear Calc 68.8 80.2 eGFR > 60 > 60 BUN/Creatinine Ratio 9 L 8 L Glucose 77 93 Calculated Osmolality 289 285 Calcium 7.5 L 7.5 L Corrected Calcium 8.3 L Total Bilirubin 0.4 ALT < 7 L Alkaline Phosphatase 67 Total Protein 4.7 L Albumin 3.0 L Globulin 1.7 L Albumin/Globulin Ratio 1.8 05/07/25 20:18 WBC RBC Hgb Hct MCV MCH MCHC RDW Std Deviation Plt Count Neut % (Auto) Lymph % (Auto) [place] % (Auto) Eos % (Auto) Baso % (Auto) Neut # (Auto) Lymph # (Auto) [place] # (Auto) Eos # (Auto) Baso # (Auto) Immature Gran # (Auto) Absolute Nucleated RBC Immature Gran % Nucleated RBC % Sodium 143 Potassium 3.3 L Chloride 121 H* Carbon Dioxide 31.9 H Anion Gap -10 L BUN < 5 L Creatinine 0.6 Estim Creat Clear Calc 80.2 eGFR > 60 BUN/Creatinine Ratio 8 L Glucose 127 H Calculated Osmolality 284 Calcium 7.1 L Corrected Calcium Total Bilirubin ALT Alkaline Phosphatase Total Protein Albumin Globulin Albumin/Globulin Ratio Impressions Impression: Stool impaction Very difficult undertaking to clear the colon out from the stool with the GoLytely Postpone colonoscopy till patient is clear ABG Interpretation ABG results: 05/04/25 10:00 ABG pH 7.38 ABG pCO2 44 ABG pO2 130 H ABG HCO3 26 ABG O2 Saturation 100 H ABG Base Excess 0 Assessment & Plan A&P Narrative # Anemia blood loss # Occult GI bleeding with FOBT positive likely requiring blood transfusion Agree with blood transfusion consent obtained for fiberoptic esophagogastroduodenoscopy with possible biopsy possible therapeutic intervention under intravenous moderate sedation If negative we will consider fiberoptic colonoscopy prior to discharge although patient is DNI DNR but the family does want those things done We will follow the patient Other medical problems include Coronary artery disease status post PTCA Parkinson disease Recurrent and chronic UTIs ICH requiring craniotomy Viral myocarditis Gross electrolyte abnormalities Thank you very much for the opportunity to participate in the care of this patient Time Spent With Patient Time: Total time spent is greater than 50% in coordination of care (as documented) at patient's floor/unit and/or counseling patient:
[2025-05-08] VITALS (8 sets, daily range): BP systolic 97–160; BP diastolic 55–80; PULSE 63–89; RESP 15–20; TEMP 36.2–36.8; O2SAT 92–100; BMI 20.2
[2025-05-08] MEDS: NA SU/NAHCO3/KC/PEG (Golytely) 4,000 ML BTL 4000 ML PO (00:39)
[2025-05-08 01:57] LABS: Anion Gap -9 (7-16); BUN/Creatinine Ratio 8 Ratio (12-20); Blood Urea Nitrogen < 5 mg/dL (9-23); Calcium 6.9 mg/dL (8.3-10.6); Carbon Dioxide 32.9 mMol/L (20.0-31.0); Chloride 120 mMol/L (98-107); Creatinine (Component) 0.6 mg/dL (0.6-1.3); Estimated Creatinine Clearance 80.2 mL/min (>60); Glucose 92 mg/dL (74-106); Osmolality,Calculated 284 (275-295); Potassium 3.6 mMol/L (3.4-5.1); Sodium 144 mMol/L (136-145); eGFR > 60 See Note
[2025-05-08] MEDS: BROMFENAC 0.075% LEFT EYE ×4 (05:11→20:29)
[2025-05-08] MEDS: MOXIFLOXACIN 0.5% LEFT EYE ×4 (05:11→20:29)
[2025-05-08] MEDS: [UNRECOGNIZED DRUG - OTHER] LEFT EYE ×4 (05:11→20:29)
[2025-05-08] MEDS: CARBIDOPA LEVODOPA ENTACAPONE PO ×4 (05:11→20:29)
[2025-05-08 05:59] LABS: Basophils % (Auto) 0 % (0-2.5); Eosinophils # (Auto) 0.3 Thou/mm3 (0.0-0.5); Eosinophils % (Auto) 6 % (0-10); Hematocrit 25.8 % (41.0-53.0); Hemoglobin 9.1 g/dL (13.5-16.0); Immature Granulocytes % (Auto) 0 % (0-0); Immature Granulocytes Auto 0.01 Thou/mm3 (0.00-0.00); Lymphocytes # (Auto) 0.5 Thou/mm3 (1.0-4.8); Lymphocytes % (Auto) 10 % (10-50); Mean Corpuscular HGB Conc 35.3 g/dl (31.0-37.0); Mean Corpuscular Hemoglobin 31.4 pg (25.0-35.0); Mean Corpuscular Volume 89 fL (80-100); Monocytes # (Auto) 0.5 Thou/mm3 (0.0-0.8); Monocytes % (Auto) 10 % (0-12); Neutrophils # (Auto) 3.8 Thou/mm3 (1.8-7.7); Neutrophils % (Auto) 74 % (37-80); Nucleated Red Blood Cell % 0 /100 WBC (0); Platelet Count 145 Thou/mm3 (140-440); RDW Standard Deviation 49.4 fL (35.1-43.9); White Blood Count 5.2 Thou/mm3 (3.8-10.6)
[2025-05-08 06:35] LABS: Alanine Aminotransferase < 7 U/L (10-49); Albumin, Serum 2.8 gm/dL (3.4-4.8); Albumin/Globulin Ratio 1.6 (1.2-2.2); Alkaline Phosphatase 65 U/L (46-116); Anion Gap -7 (7-16); Aspartate Amino Transferase 23 U/L (0-34); BUN/Creatinine Ratio 10 Ratio (12-20); Bilirubin,Total 0.3 mg/dL (0.3-1.2); Blood Urea Nitrogen < 5 mg/dL (9-23); Calcium 7.1 mg/dL (8.3-10.6); Calcium (Corrected) 8.1 mg/dL (8.5-10.1); Carbon Dioxide 30.9 mMol/L (20.0-31.0); Chloride 122 mMol/L (98-107); Creatinine (Component) 0.5 mg/dL (0.6-1.3); Estimated Creatinine Clearance 94.2 mL/min (>60); Globulin 1.7 gm/dL (2.3-3.5); Glucose 99 mg/dL (74-106); Magnesium 1.2 mg/dL (1.6-2.6); Osmolality,Calculated 287 (275-295); Potassium 3.6 mMol/L (3.4-5.1); Sodium 146 mMol/L (136-145); Total Protein 4.5 gm/dL (5.7-8.2); eGFR > 60 See Note
[2025-05-08] MEDS: cefTRIAXone/D5w 1gm IV premix 1 GM/50 ML BAG IV (09:02)
[2025-05-08] MEDS: DEXTROSE 5%-WATER 1,000 ML 75 ML IV (09:03)
[2025-05-08] MEDS: RASAGILINE MESYLATE 1 MG TABLET PO (09:06)
[2025-05-08] MEDS: PANTOPRAZOLE INJ 40 MG VIAL IVP ×2 (10:00→20:27)
[2025-05-08] MEDS: BALSAM PERU/CASTOR OIL (Venelex) 60 GM TUBE TOP ×2 (10:00→20:30)
[2025-05-08] MEDS: POTASSIUM CHLORIDE 10% 20 MEQ/15 ML UDC 40 MEQ GT (10:50)
[2025-05-08] MEDS: Magnesium Sulfate 4 GM Ivpb 4 GM/50 ML BAG IV (11:33)
--- NOTE | 2025-05-08 11:41 | PC.SS ---
SS follow up note; Patient will possibly have a colonoscopy today, patient will discharge home with [facility] when medically cleared.
[2025-05-08] MEDS: CALCIUM GLUC/NS 1000MG IVPB 1,000 MG/50 ML BAG 50 MG IV (12:29)
[2025-05-08] MEDS: ACETAMINOPHEN 325 MG TABLET 650 MG PO (12:29)
[2025-05-08 15:36] LABS: Anion Gap -7 (7-16); BUN/Creatinine Ratio 8 Ratio (12-20); Blood Urea Nitrogen < 5 mg/dL (9-23); Calcium 7.3 mg/dL (8.3-10.6); Carbon Dioxide 30.3 mMol/L (20.0-31.0); Chloride 118 mMol/L (98-107); Creatinine (Component) 0.6 mg/dL (0.6-1.3); Estimated Creatinine Clearance 78.5 mL/min (>60); Glucose 117 mg/dL (74-106); Osmolality,Calculated 279 (275-295); Potassium 4.2 mMol/L (3.4-5.1); Sodium 141 mMol/L (136-145); eGFR > 60 See Note
--- NOTE | 2025-05-08 15:36 | PD.RESPRO ---
Documentation for date of: 05/08/25 Subjective Subjective Interval history: Patient examined at bedside. No events overnight. The patient remains disoriented, though able to articulate a few coherent statements today. Patient is still on GoLytely for possible colonoscopy today. Per GI, he was severely impacted with stool and bowel prep taking more time than usual. Bowel contents dark likely from ferrous sulfate takes a home. Hemoglobin stable 9.1, sodium 146, potassium 2.9. Most likely due to GI loss and and recent decreased oral intake. Electrolytes repleted and will continue D5W at 70 cc/h for hypernatremia. Goal 140-143. Planning for colonoscopy today if cleared. Daughter said she will be taking patient home tomorrow on hospice. On ceftriaxone for treatment of Staph aureus UTI. Concern for recent decline and failure to thrive. Patient has advanced Parkinson's and not meeting nutritional requirements. Exam Vital Signs Temp Pulse Resp BP Pulse Ox O2 Del Method O2 Flow Rate 97.3 F 74 20 160/75 H 94 L Room Air 2 05/08/25 12:05/08/25 12:05/08/25 12:05/08/25 12:05/08/25 12:05/08/25 12:05/08/25 08:26 Narrative Exam General: Elderly male, cachectic, awake, on wrist restraints HEENT: NCAT, No JVD noted. Pupils are equal and reactive to light bilaterally, NG tube. Cardiovascular: Normal S1 and S2. Regular rate and rhythm. Respiratory: unable to asses due to continuous movement Abdomen: unable to asses due to continuous movement Skin: Warm to touch, dry, no rashes noted, purpura throughout upper extremities. Musculoskeletal: No gross injuries. No pitting edema Neuro: moving continuously, withdraws to pain, no focal neuro deficits. Eyes open, tracks. Objective Labs 05/09/25 05:14 05/09/25 05:14 Labs: Laboratory Results - last 24 hr 05/07/25 05/08/25 05/08/25 20:18 01:05 04:45 WBC 5.2 RBC 2.90 L Hgb 9.1 L Hct 25.8 L MCV 89 MCH 31.4 MCHC 35.3 RDW Std Deviation 49.4 H Plt Count 145 Neut % (Auto) 74 Lymph % (Auto) 10 [place] % (Auto) 10 Eos % (Auto) 6 Baso % (Auto) 0 Neut # (Auto) 3.8 Lymph # (Auto) 0.5 L [place] # (Auto) 0.5 Eos # (Auto) 0.3 Baso # (Auto) 0.0 Immature Gran # (Auto) 0.01 H Absolute Nucleated RBC 0.00 Immature Gran % 0 Nucleated RBC % 0 Sodium 143 144 146 H Potassium 3.3 L 3.6 3.6 Chloride 121 H* 120 H 122 H* Carbon Dioxide 31.9 H 32.9 H 30.9 Anion Gap -10 L -9 L -7 L BUN < 5 L < 5 L < 5 L Creatinine 0.6 0.6 0.5 L Estim Creat Clear Calc 80.2 80.2 94.2 eGFR > 60 > 60 > 60 BUN/Creatinine Ratio 8 L 8 L 10 L Glucose 127 H 92 99 Calculated Osmolality 284 284 287 Calcium 7.1 L 6.9 L 7.1 L Corrected Calcium 8.1 L Magnesium 1.2 L Total Bilirubin 0.3 AST 23 ALT < 7 L Alkaline Phosphatase 65 Total Protein 4.5 L Albumin 2.8 L Globulin 1.7 L Albumin/Globulin Ratio 1.6 ABG Interpretation ABG results: 05/04/25 10:00 ABG pH 7.38 ABG pCO2 44 ABG pO2 130 H ABG HCO3 26 ABG O2 Saturation 100 H ABG Base Excess 0 Quality Measures Quality Measures none Advance care planning discussed with:: child Assessment & Plan Assessment Current Active Medications: Generic Name Dose Route Start Last Admin Trade Name Freq PRN Reason Stop Dose Admin Acetaminophen 650 mg 05/03/25 09:54 05/08/25 12:29 Acetaminophen 325 Mg Tablet PO 06/02/25 09:53 650 mg Q6H PRN Administration Fever >100.3 or pain Balsam [place] Oil 0 gm 05/03/25 21:00 05/08/25 10:00 Balsam [place] Oil (Venelex) 60 Gm Tube TOP 06/02/25 20:59 1 applicatio BID BEAR Administration Clopidogrel Bisulfate 75 mg 05/06/25 14:30 05/07/25 08:50 Clopidogrel Bisulfate 75 Mg Tablet NG 06/05/25 14:29 75 mg QDAY BEAR Administration Prednisolone 0 ea 05/04/25 09:30 05/08/25 11:09 Phosphate 1% - LEFT EYE 06/03/25 09:29 1 solution Moxifloxacin 0.5%- QID BEAR Administration Bromfenac 0.075% Eye Drops Rasagiline Mesylate 0 ea 05/04/25 09:30 05/08/25 09:06 1 Mg Tablet PO 06/03/25 09:29 1 tablet QDAY BEAR Administration Carbidopa-Levodopa- 0 ea 05/04/25 12:00 05/08/25 11:09 Entacapone 37.5-150- PO 06/03/25 11:59 1 tablet 200 Mg QID BEAR Administration Donepezil HCl 5 mg 05/04/25 21:00 05/07/25 20:57 Donepezil Hcl 5 Mg Tablet PO 06/03/25 20:59 5 mg HS BEAR Administration Ferrous Sulfate 325 mg 05/04/25 09:00 05/07/25 08:50 Ferrous Sulf 325 Mg Tablet PO 06/03/25 08:59 325 mg QDAY BEAR Administration Finasteride 5 mg 05/03/25 21:00 05/07/25 20:57 Finasteride 5 Mg Tablet PO 06/02/25 20:59 5 mg HS BEAR Administration Dextrose 1,000 mls @ 75 mls/hr 05/07/25 08:30 05/08/25 09:03 D5w IV 06/06/25 08:29 75 mls/hr .[id number] BEAR Administration Ceftriaxone Sodium/Dextrose 1 gm in 50 mls @ 100 mls/hr 05/07/25 11:03 05/08/25 09:02 Rocephin/D5w 1gm Iv Premix IV 05/14/25 11:02 100 mls/hr QDAY BEAR Administration Melatonin 6 mg 05/04/25 21:00 05/07/25 20:57 Melatonin 3 Mg Tablet PO 06/03/25 20:59 6 mg HS BEAR Administration Protocol Menthol/Methyl Salicylate 0 gm 05/05/25 07:42 Methyl Salic/Menthol Oint 28 Gm Tube TOP 06/04/25 07:35 Q8H PRN LOCALIZED PAIN Protocol Ondansetron HCl 4 mg 05/03/25 09:54 Ondansetron Inj 2 Mg/Ml Inj 2 Ml IVP 06/02/25 09:53 Q6H PRN NAUSEA OR VOMITING Protocol Pantoprazole Sodium 40 mg 05/04/25 09:00 05/08/25 10:00 Pantoprazole Inj 40 Mg Vial IVP 06/03/25 08:59 40 mg Q12HR BEAR Administration Quetiapine Fumarate 25 mg 05/03/25 15:11 Quetiapine Fumarate 25 Mg Tablet PO 06/02/25 15:10 QDAY PRN increased anxiety Quetiapine Fumarate 50 mg 05/06/25 21:00 05/07/25 20:57 Quetiapine Fumarate 25 Mg Tablet NG 06/05/25 20:59 50 mg HS BEAR Administration Sertraline HCl 150 mg 05/04/25 21:00 05/07/25 20:56 Sertraline Hcl 25 Mg Tablet PO 06/03/25 20:59 150 mg HS BEAR Administration Plan 85-year-old male with past medical history of CAD s/p stent, HFrEF (EF 30 to 35%), Parkinson's disease, traumatic intracranial hemorrhage status postcraniotomy, chronic urinary retention s/p suprapubic catheter, Hx of GI bleed, and skin cancer was admitted to the hospital on 05/03/2025 for acute blood loss anemia likely secondary to possible GI bleed. #Acute blood loss anemia #Upper GI bleed Patient came in with a hemoglobin of 6.7, fecal occult blood was positive patient does have a history of previous GI bleeds. EGD in past has been negative and were unable to find a source of bleeding. s/p 2 units prbc. EGD done 05/05/25 revealed esophagitis and gastritis. No bleeding. -Dr. Siddiqui consulted, appreciate recs--possible colonoscopy -Go lytely prep through NG tube -Pantoprazole 40 mg BID - Hold NSAIDs, antiplatelets -daily CBC -transfuse if Hb <7 #SHANTA (resolved) on CKD #Electrolyte imbalances #Hypernatremia #Hyperchloremia #Hypokalemia Patient does have some underlying CKD, but previously his creatinine was around 1.2. Poor oral intake per caregiver at bedisde. Extremely cachectic. Sodium was 147 and his chloride was 141 on admission. Most likely due to GI loss and and recent decreased oral intake. -Electrolytes repleted and will continue D5W at 70 cc/h for hypernatremia. -Goal of 140-143. Repeat BMP -Avoid nephrotoxic agents -Renally dose medications -Will continue to monitor -replete as needed -Monitor ANGELIQUE's #Complicated UTI, staph aureus #Hx of chronic urinary retention s/p suprapubic catheter #Hx BPH Patient's UA was positive for leukocytes esterase and nitrates as well as bilirubin and blood, but negative for RBCs or bacteria. Recent history of course of antibiotics. History of multidrug-resistant organisms with the most recent urine culture on 04/01/2025 showing the patient had Enterobacter aerogenes, Pseudomonas aeruginosa's, and Klebsiella pneumoniae, which were sensitive to either the cefepime, ceftazidime, Cipro, levofloxacin, Zosyn, and tobramycin. Urine culture positive for staph aureus ?IV ceftriaxone 1g daily -daily CBC - Resume finasteride 5 mg HS #Failure to thrive #Malnutrition Most likely due to worsening Parkinson's which she was diagnosed with for about 15 years ago. Patient takes medication and is usually been able to eat properly but since past week especially in past couple days, he has been declining. BMI 17 severely cachectic. Caregiver tries to supplement with Ensure. ? Speech eval--suggesting to crush PO meds in puree and have him on dysphagia II diet when ready to advance. ? IV alternatives -continue clear liquid diet ?Dietary team consulted-->Pt meets criteria for severe protein calorie malnutrition, <50% of estimated energy requirements >5days, 14% wt loss [id number]. #Hx CAD s/p stents #Hx Parkinsons -Hold Plavix in setting of hematuria ? Resume carbidopa?levodopa?entacapone, Donepezil 5mg HS, Rasagiline 1mg QD Health maintenance: Dispo: medsurg GI bleed, pending colonoscopy, dc on home hospice FEN: clear liquid diet through NG tube DVT prophylaxis:scds CODE STATUS: Full code The patient's management plan was discussed with my attending physician Dr. Hodge. Evelyn Bhardwaj, PGY-1 Attending Provider Attestation/Addendum I have examined the patient, reviewed labs and imaging findings, discussed the case with the resident(s), and reviewed entered orders. I agree with the plan of care as outlined in this note, with these additional summaries/recommendations: Patient seen at bedside. No acute overnight events. His mentation is improving and he appears more alert. Patient is status post EGD without source of bleeding identified. NG tube in place and patient receiving GoLytely. He has now received almost 3 jugs of GoLytelyand will likely go for colonoscopy today. Gastroenterology following, recommendations appreciated. Hemoglobin stable at 9.1 today. Intractable Electrolyte abnormalities present today secondary to lack of oral intake. Hypernatremia, Hypokalemia, hypomagesnia and hypocalcemia present. Replacement was given and repeat levels this in am. We will resume diet after colonoscopy. Continue IV maintenance fluids. Continue IV Rocephin for complicated urinary tract infection. Anticipate discharge on hospice in the next 24 to 48 hours. Overall prognosis guarded. Continue home Parkinson's medications. Please see residents note for additional details and management. Dr. Naveen MD
--- NOTE | 2025-05-08 20:24 | ESPR_ITS ---
Documentation for date of: 05/08/25 Subjective Subjective Interval history: Patient evaluated still has black material in the stool Colonoscopy postponed till tomorrow Exam Vital Signs Temp Pulse Resp BP Pulse Ox O2 Del Method O2 Flow Rate 97.3 F 89 18 159/77 H 92 L Room Air 2 05/08/25 16:00 05/08/25 19:22 05/08/25 19:22 05/08/25 16:00 05/08/25 19:22 05/08/25 16:00 05/08/25 19:22 Objective Labs 05/08/25 04:45 05/08/25 14:57 Labs: Laboratory Results - last 24 hr 05/07/25 05/08/25 05/08/25 20:18 01:05 04:45 WBC 5.2 RBC 2.90 L Hgb 9.1 L Hct 25.8 L MCV 89 MCH 31.4 MCHC 35.3 RDW Std Deviation 49.4 H Plt Count 145 Neut % (Auto) 74 Lymph % (Auto) 10 [place] % (Auto) 10 Eos % (Auto) 6 Baso % (Auto) 0 Neut # (Auto) 3.8 Lymph # (Auto) 0.5 L [place] # (Auto) 0.5 Eos # (Auto) 0.3 Baso # (Auto) 0.0 Immature Gran # (Auto) 0.01 H Absolute Nucleated RBC 0.00 Immature Gran % 0 Nucleated RBC % 0 Sodium 143 144 146 H Potassium 3.3 L 3.6 3.6 Chloride 121 H* 120 H 122 H* Carbon Dioxide 31.9 H 32.9 H 30.9 Anion Gap -10 L -9 L -7 L BUN < 5 L < 5 L < 5 L Creatinine 0.6 0.6 0.5 L Estim Creat Clear Calc 80.2 80.2 94.2 eGFR > 60 > 60 > 60 BUN/Creatinine Ratio 8 L 8 L 10 L Glucose 127 H 92 99 Calculated Osmolality 284 284 287 Calcium 7.1 L 6.9 L 7.1 L Corrected Calcium 8.1 L Magnesium 1.2 L Total Bilirubin 0.3 AST 23 ALT < 7 L Alkaline Phosphatase 65 Total Protein 4.5 L Albumin 2.8 L Globulin 1.7 L Albumin/Globulin Ratio 1.6 05/08/25 14:57 WBC RBC Hgb Hct MCV MCH MCHC RDW Std Deviation Plt Count Neut % (Auto) Lymph % (Auto) [place] % (Auto) Eos % (Auto) Baso % (Auto) Neut # (Auto) Lymph # (Auto) [place] # (Auto) Eos # (Auto) Baso # (Auto) Immature Gran # (Auto) Absolute Nucleated RBC Immature Gran % Nucleated RBC % Sodium 141 Potassium 4.2 D Chloride 118 H Carbon Dioxide 30.3 Anion Gap -7 L BUN < 5 L Creatinine 0.6 Estim Creat Clear Calc 78.5 eGFR > 60 BUN/Creatinine Ratio 8 L Glucose 117 H Calculated Osmolality 279 Calcium 7.3 L Corrected Calcium Magnesium Total Bilirubin AST ALT Alkaline Phosphatase Total Protein Albumin Globulin Albumin/Globulin Ratio Impressions Impression: Occult GI bleeding stool impaction colonoscopy planned for tomorrow ABG Interpretation ABG results: 05/04/25 10:00 ABG pH 7.38 ABG pCO2 44 ABG pO2 130 H ABG HCO3 26 ABG O2 Saturation 100 H ABG Base Excess 0 Assessment & Plan A&P Narrative # Anemia blood loss # Occult GI bleeding with FOBT positive likely requiring blood transfusion Agree with blood transfusion consent obtained for fiberoptic esophagogastroduodenoscopy with possible biopsy possible therapeutic intervention under intravenous moderate sedation If negative we will consider fiberoptic colonoscopy prior to discharge although patient is DNI DNR but the family does want those things done We will follow the patient Other medical problems include Coronary artery disease status post PTCA Parkinson disease Recurrent and chronic UTIs ICH requiring craniotomy Viral myocarditis Gross electrolyte abnormalities Thank you very much for the opportunity to participate in the care of this patient Time Spent With Patient Time: Total time spent is greater than 50% in coordination of care (as documented) at patient's floor/unit and/or counseling patient:
[2025-05-08] MEDS: MELATONIN 3 MG TABLET 6 MG PO (20:28)
[2025-05-08] MEDS: SERTRALINE HCL 25 MG TABLET 150 MG PO (20:28)
[2025-05-08] MEDS: DONEPEZIL HCL 5 MG TABLET PO (20:29)
[2025-05-08] MEDS: FINASTERIDE 5 MG TABLET PO (20:29)
[2025-05-08] MEDS: QUEtiapine FUMARATE 25 MG TABLET 50 MG NG (20:29)
[2025-05-09] VITALS (25 sets, daily range): BP systolic 121–165; BP diastolic 58–77; PULSE 52–107; RESP 12–20; TEMP 36.3–37.1; O2SAT 92–100; BMI 19.5
[2025-05-09] MEDS: DEXTROSE 5%-WATER 1,000 ML 75 ML IV ×2 (00:09→16:47)
[2025-05-09] MEDS: [UNRECOGNIZED DRUG - OTHER] LEFT EYE ×2 (05:04→17:41)
[2025-05-09] MEDS: CARBIDOPA LEVODOPA ENTACAPONE PO (05:04)
[2025-05-09] MEDS: MOXIFLOXACIN 0.5% LEFT EYE ×2 (05:04→17:41)
[2025-05-09] MEDS: BROMFENAC 0.075% LEFT EYE ×2 (05:04→17:41)
[2025-05-09 06:27] LABS: Basophils % (Auto) 1 % (0-2.5); Eosinophils # (Auto) 0.3 Thou/mm3 (0.0-0.5); Eosinophils % (Auto) 8 % (0-10); Immature Granulocytes % (Auto) 0 % (0-0); Lymphocytes # (Auto) 0.6 Thou/mm3 (1.0-4.8); Lymphocytes % (Auto) 14 % (10-50); Mean Corpuscular HGB Conc 34.5 g/dl (31.0-37.0); Mean Corpuscular Hemoglobin 30.6 pg (25.0-35.0); Mean Corpuscular Volume 89 fL (80-100); Monocytes # (Auto) 0.5 Thou/mm3 (0.0-0.8); Monocytes % (Auto) 11 % (0-12); Neutrophils # (Auto) 2.8 Thou/mm3 (1.8-7.7); Neutrophils % (Auto) 66 % (37-80); Nucleated Red Blood Cell % 0 /100 WBC (0); Platelet Count 157 Thou/mm3 (140-440); RDW Standard Deviation 50.1 fL (35.1-43.9); Red Blood Count 3.27 Miln/mm3 (4.50-5.90); White Blood Count 4.2 Thou/mm3 (3.8-10.6)
[2025-05-09 06:59] LABS: Alanine Aminotransferase < 7 U/L (10-49); Albumin/Globulin Ratio 1.6 (1.2-2.2); Alkaline Phosphatase 76 U/L (46-116); Anion Gap -5 (7-16); Aspartate Amino Transferase 19 U/L (0-34); BUN/Creatinine Ratio 8 Ratio (12-20); Bilirubin,Total 0.3 mg/dL (0.3-1.2); Blood Urea Nitrogen < 5 mg/dL (9-23); Calcium 7.7 mg/dL (8.3-10.6); Calcium (Corrected) 8.5 mg/dL (8.5-10.1); Carbon Dioxide 33.3 mMol/L (20.0-31.0); Chloride 118 mMol/L (98-107); Creatinine (Component) 0.6 mg/dL (0.6-1.3); Globulin 1.9 gm/dL (2.3-3.5); Glucose 97 mg/dL (74-106); Osmolality,Calculated 287 (275-295); Potassium 3.2 mMol/L (3.4-5.1); Sodium 146 mMol/L (136-145); Total Protein 4.9 gm/dL (5.7-8.2); eGFR > 60 See Note
[2025-05-09] MEDS: POTASSIUM CHLORIDE 10% 20 MEQ/15 ML UDC 40 MEQ GT (08:55)
[2025-05-09] MEDS: cefTRIAXone/D5w 1gm IV premix 1 GM/50 ML BAG IV (08:56)
[2025-05-09] MEDS: PANTOPRAZOLE INJ 40 MG VIAL IVP ×2 (08:56→21:15)
[2025-05-09] MEDS: RASAGILINE MESYLATE 1 MG TABLET PO (08:57)
[2025-05-09] MEDS: BALSAM PERU/CASTOR OIL (Venelex) 60 GM TUBE TOP ×2 (08:57→21:16)
--- NOTE | 2025-05-09 14:10 | PD.RESPRO ---
Documentation for date of: 05/09/25 Subjective Subjective Interval history: The patient was seen and examined at the bedside. No acute events overnight. Labs and vital signs were reviewed. Hemoglobin increased from 9 to 10. Electrolyte imbalances were noted on CMP and replaced as needed. A colonoscopy was planned yesterday but was delayed because the patient wasn?t cleared. GI now plans to do the colonoscopy today. The patient?s daughter was at the bedside and wants the procedure done here since the patient has already started bowel prep. We spoke with GI and explained the situation?colonoscopy is likely to happen today. After the colonoscopy, we will continue to monitor closely. The NG tube will be removed, and the patient?s diet will be restarted. Electrolytes will be rechecked tomorrow and replaced if needed. We will watch for how well the patient tolerates the diet. If stable, we plan for discharge home with hospice in the next 24 hours. The daughter confirmed that hospice has been arranged. We will follow up with GI and keep her updated. Exam Vital Signs Temp Pulse Resp BP Pulse Ox O2 Del Method O2 Flow Rate 97.6 F 64 13 144/67 H 100 Nasal Cannula 3 05/09/25 12:00 05/09/25 14:05 05/09/25 14:05 05/09/25 14:05 05/09/25 14:05 05/09/25 12:00 05/09/25 14:05 Narrative Exam General: Elderly male, cachectic, awake, on wrist restraints HEENT: NCAT, No JVD noted. Pupils are equal and reactive to light bilaterally, NG tube. Cardiovascular: Normal S1 and S2. Regular rate and rhythm. Respiratory: unable to asses due to continuous movement Abdomen: unable to asses due to continuous movement Skin: Warm to touch, dry, no rashes noted, purpura throughout upper extremities. Musculoskeletal: No gross injuries. No pitting edema Neuro: moving continuously, withdraws to pain, no focal neuro deficits. Eyes open, tracks. Objective Labs 05/10/25 05:40 05/10/25 05:40 Labs: Laboratory Results - last 24 hr 05/08/25 05/09/25 14:57 05:14 WBC 4.2 RBC 3.27 L Hgb 10.0 L Hct 29.0 L MCV 89 MCH 30.6 MCHC 34.5 RDW Std Deviation 50.1 H Plt Count 157 Neut % (Auto) 66 Lymph % (Auto) 14 [place] % (Auto) 11 Eos % (Auto) 8 Baso % (Auto) 1 Neut # (Auto) 2.8 Lymph # (Auto) 0.6 L [place] # (Auto) 0.5 Eos # (Auto) 0.3 Baso # (Auto) 0.0 Immature Gran # (Auto) 0.00 Absolute Nucleated RBC 0.00 Immature Gran % 0 Nucleated RBC % 0 Sodium 141 146 H Potassium 4.2 D 3.2 L D Chloride 118 H 118 H Carbon Dioxide 30.3 33.3 H Anion Gap -7 L -5 L BUN < 5 L < 5 L Creatinine 0.6 0.6 Estim Creat Clear Calc 78.5 76.0 eGFR > 60 > 60 BUN/Creatinine Ratio 8 L 8 L Glucose 117 H 97 Calculated Osmolality 279 287 Calcium 7.3 L 7.7 L Corrected Calcium 8.5 Total Bilirubin 0.3 AST 19 ALT < 7 L Alkaline Phosphatase 76 Total Protein 4.9 L Albumin 3.0 L Globulin 1.9 L Albumin/Globulin Ratio 1.6 ABG Interpretation ABG results: 05/04/25 10:00 ABG pH 7.38 ABG pCO2 44 ABG pO2 130 H ABG HCO3 26 ABG O2 Saturation 100 H ABG Base Excess 0 Quality Measures Quality Measures none Advance care planning discussed with:: patient and child Assessment & Plan Assessment Current Active Medications: Generic Name Dose Route Start Last Admin Trade Name Freq PRN Reason Stop Dose Admin Acetaminophen 650 mg 05/03/25 09:54 05/08/25 12:29 Acetaminophen 325 Mg Tablet PO 06/02/25 09:53 650 mg Q6H PRN Administration Fever >100.3 or pain Balsam [place] Oil 0 gm 05/03/25 21:00 05/09/25 08:57 Balsam [place] Oil (Venelex) 60 Gm Tube TOP 06/02/25 20:59 1 applicatio BID BEAR Administration Bisacodyl 10 mg 05/09/25 13:30 Bisacodyl 10 Mg Supp [place] 05/09/25 15:31 X1 PRN Gas pain Clopidogrel Bisulfate 75 mg 05/06/25 14:30 05/07/25 08:50 Clopidogrel Bisulfate 75 Mg Tablet NG 06/05/25 14:29 75 mg QDAY BEAR Administration Prednisolone 0 ea 05/04/25 09:30 05/09/25 05:04 Phosphate 1% - LEFT EYE 06/03/25 09:29 1 solution Moxifloxacin 0.5%- QID BEAR Administration Bromfenac 0.075% Eye Drops Rasagiline Mesylate 0 ea 05/04/25 09:30 05/09/25 08:57 1 Mg Tablet PO 06/03/25 09:29 1 tablet QDAY BEAR Administration Carbidopa-Levodopa- 0 ea 05/04/25 12:00 05/09/25 05:04 Entacapone 37.5-150- PO 06/03/25 11:59 1 tablet 200 Mg QID BEAR Administration Donepezil HCl 5 mg 05/04/25 21:00 05/08/25 20:29 Donepezil Hcl 5 Mg Tablet PO 06/03/25 20:59 5 mg HS BEAR Administration Fentanyl Citrate 50 mcg 05/09/25 13:30 Fentanyl Cit Inj 50 Mcg/Ml Amp 2ml IVP 05/09/25 15:30 Q2M PRN MODERATE SEDATION Ferrous Sulfate 325 mg 05/04/25 09:00 05/07/25 08:50 Ferrous Sulf 325 Mg Tablet PO 06/03/25 08:59 325 mg QDAY BEAR Administration Finasteride 5 mg 05/03/25 21:00 05/08/25 20:29 Finasteride 5 Mg Tablet PO 06/02/25 20:59 5 mg HS BEAR Administration Dextrose 1,000 mls @ 75 mls/hr 05/07/25 08:30 05/09/25 00:09 D5w IV 06/06/25 08:29 75 mls/hr .[id number] BEAR Administration Ceftriaxone Sodium/Dextrose 1 gm in 50 mls @ 100 mls/hr 05/07/25 11:03 05/09/25 08:56 Rocephin/D5w 1gm Iv Premix IV 05/14/25 11:02 100 mls/hr QDAY BEAR Administration Melatonin 6 mg 05/04/25 21:00 05/08/25 20:28 Melatonin 3 Mg Tablet PO 06/03/25 20:59 6 mg HS BEAR Administration Protocol Menthol/Methyl Salicylate 0 gm 05/05/25 07:42 Methyl Salic/Menthol Oint 28 Gm Tube TOP 06/04/25 07:35 Q8H PRN LOCALIZED PAIN Protocol Midazolam HCl 2 mg 05/09/25 13:30 Midazolam Inj 1 Mg/Ml Vial 2 Ml IVP 05/09/25 15:30 Q2M PRN Moderate Sedation Ondansetron HCl 4 mg 05/03/25 09:54 Ondansetron Inj 2 Mg/Ml Inj 2 Ml IVP 06/02/25 09:53 Q6H PRN NAUSEA OR VOMITING Protocol Pantoprazole Sodium 40 mg 05/04/25 09:00 05/09/25 08:56 Pantoprazole Inj 40 Mg Vial IVP 06/03/25 08:59 40 mg Q12HR BEAR Administration Quetiapine Fumarate 25 mg 05/03/25 15:11 Quetiapine Fumarate 25 Mg Tablet PO 06/02/25 15:10 QDAY PRN increased anxiety Quetiapine Fumarate 50 mg 05/06/25 21:00 05/08/25 20:29 Quetiapine Fumarate 25 Mg Tablet NG 06/05/25 20:59 50 mg HS BEAR Administration Sertraline HCl 150 mg 05/04/25 21:00 05/08/25 20:28 Sertraline Hcl 25 Mg Tablet PO 06/03/25 20:59 150 mg HS BEAR Administration Plan 85-year-old male with past medical history of CAD s/p stent, HFrEF (EF 30 to 35%), Parkinson's disease, traumatic intracranial hemorrhage status postcraniotomy, chronic urinary retention s/p suprapubic catheter, Hx of GI bleed, and skin cancer was admitted to the hospital on 05/03/2025 for acute blood loss anemia likely secondary to possible GI bleed. #Acute blood loss anemia #Lower GI bleed Patient came in with a hemoglobin of 6.7, fecal occult blood was positive patient does have a history of previous GI bleeds. EGD in past has been negative and were unable to find a source of bleeding. s/p 2 units prbc. EGD done 05/05/25 revealed esophagitis and gastritis. No bleeding. -Dr. Siddiqui consulted, appreciate recs--possible colonoscopy -Go lytely prep through NG tube -Pantoprazole 40 mg BID -Hold NSAIDs, antiplatelets -daily CBC -transfuse if Hb <7 #SHANTA (resolved) on CKD #Electrolyte imbalances #Hypernatremia #Hyperchloremia #Hypokalemia Patient does have some underlying CKD, but previously his creatinine was around 1.2. Poor oral intake per caregiver at [facility]. Extremely cachectic. Sodium was 147 and his chloride was 141 on admission. Most likely due to GI loss and and recent decreased oral intake. -Electrolytes repleted and will continue D5W at 70 cc/h for hypernatremia. -Goal of 140-143. Repeat BMP -Avoid nephrotoxic agents -Renally dose medications -Will continue to monitor -replete as needed -Monitor ANGELIQUE's #Complicated UTI, staph aureus #Hx of chronic urinary retention s/p suprapubic catheter #Hx BPH Patient's UA was positive for leukocytes esterase and nitrates as well as bilirubin and blood, but negative for RBCs or bacteria. Recent history of course of antibiotics. History of multidrug-resistant organisms with the most recent urine culture on 04/01/2025 showing the patient had Enterobacter aerogenes, Pseudomonas aeruginosa's, and Klebsiella pneumoniae, which were sensitive to either the cefepime, ceftazidime, Cipro, levofloxacin, Zosyn, and tobramycin. Urine culture positive for staph aureus ?IV ceftriaxone 1g daily- plan to DC on billy nitrofurantoin, to complet [place] treatment course -daily CBC -Resume finasteride 5 mg HS #Failure to thrive #Malnutrition Most likely due to worsening Parkinson's which she was diagnosed with for about 15 years ago. Patient takes medication and is usually been able to eat properly but since past week especially in past couple days, he has been declining. BMI 17 severely cachectic. Caregiver tries to supplement with Ensure. ?Speech eval--suggesting to crush PO meds in puree and have him on dysphagia II diet when ready to advance. ?IV alternatives -continue clear liquid diet after colonoscopy advance as tolerates ?Dietary team consulted-->Pt meets criteria for severe protein calorie malnutrition, <50% of estimated energy requirements >5days, 14% wt loss [id number]. #Hx CAD s/p stents #Hx Parkinsons -Hold Plavix in setting of hematuriaand Gi bleed ?Resume carbidopa?levodopa?entacapone, Donepezil 5mg HS, Rasagiline 1mg QD Health maintenance: Dispo: medsurg GI bleed, pending colonoscopy, dc on home hospice FEN: clear liquid diet through NG tube after colonoscopy NG tube will be removed, advance diet as tolerates DVT prophylaxis:scds CODE STATUS: DNR Patient care was discussed with attending physician Dr. Naveen Kumar MD PGY-2 I have carefully reviewed this document. Due to imperfections in the voice software, there could be grammatical errors including phonetic/typographic errors. This in no way compromises the medical care the patient is receiving Attending Provider Attestation/Addendum I have examined the patient, reviewed labs and imaging findings, discussed the case with the resident(s), and reviewed entered orders. I agree with the plan of care as outlined in this note, with these additional summaries/recommendations: Patient seen at bedside. No acute overnight events. Patient is status post EGD without source of bleeding identified. NG tube in place and patient receiving GoLytely. Plans for colonoscopy today and if still not clear then patients daughter would like to cancel colonoscopy and resume diet. Gastroenterology updated and following. Hemoglobin stable at 10.0 today. Intractable Electrolyte abnormalities persist secondary to lack of oral intake. Hypernatremia, Hypokalemia, hypomagesnia and hypocalcemia present. Replacement was given and repeat levels this in am. We will resume diet after colonoscopy. Continue IV maintenance fluids. Continue IV Rocephin for complicated urinary tract infection. Anticipate discharge on hospice in the next 24 to 48 hours. Overall prognosis guarded. Continue home Parkinson's medications. Please see residents note for additional details and management. Dr. Naveen MD
--- NOTE | 2025-05-09 14:20 | SUR.PHASEI ---
pt received to [facility]. vss. breathing even and unlabored. denies pain and nausea. report from nurse acacia.
--- NOTE | 2025-05-09 14:40 | SUR.PHASEI ---
pt transported back to room via gurney. report called to nurse celsa. gus. breathing even and unlabored. ngt out by dr madsen in or. daughter at bedside.
--- NOTE | 2025-05-09 15:50 | PC.SS ---
SS follow up note; Patient is pending colonoscopy, possible discharge home with [facility].
[2025-05-10] VITALS: BP 141/64; PULSE 58; RESP 16; TEMP 36.3; O2SAT 95
[2025-05-10 04:00] VITALS: BP 132/48; PULSE 67; RESP 15; TEMP 36.8; O2SAT 97
[2025-05-10] MEDS: MOXIFLOXACIN 0.5% LEFT EYE ×2 (05:05→11:52)
[2025-05-10] MEDS: [UNRECOGNIZED DRUG - OTHER] LEFT EYE ×2 (05:05→11:52)
[2025-05-10] MEDS: BROMFENAC 0.075% LEFT EYE ×2 (05:05→11:52)
[2025-05-10] MEDS: DEXTROSE 5%-WATER 1,000 ML 75 ML IV (05:43)
[2025-05-10 06:00] VITALS: BMI 19.1
[2025-05-10 06:25] LABS: Basophils % (Auto) 1 % (0-2.5); Eosinophils # (Auto) 0.2 Thou/mm3 (0.0-0.5); Eosinophils % (Auto) 6 % (0-10); Hematocrit 28.6 % (41.0-53.0); Hemoglobin 9.7 g/dL (13.5-16.0); Immature Granulocytes % (Auto) 0 % (0-0); Immature Granulocytes Auto 0.01 Thou/mm3 (0.00-0.00); Lymphocytes # (Auto) 0.8 Thou/mm3 (1.0-4.8); Lymphocytes % (Auto) 20 % (10-50); Mean Corpuscular HGB Conc 33.9 g/dl (31.0-37.0); Mean Corpuscular Volume 91 fL (80-100); Monocytes # (Auto) 0.5 Thou/mm3 (0.0-0.8); Monocytes % (Auto) 11 % (0-12); Neutrophils # (Auto) 2.7 Thou/mm3 (1.8-7.7); Neutrophils % (Auto) 63 % (37-80); Nucleated Red Blood Cell % 0 /100 WBC (0); Platelet Count 171 Thou/mm3 (140-440); RDW Standard Deviation 51.5 fL (35.1-43.9); Red Blood Count 3.13 Miln/mm3 (4.50-5.90); White Blood Count 4.2 Thou/mm3 (3.8-10.6)
[2025-05-10 07:12] LABS: Alanine Aminotransferase 9 U/L (10-49); Albumin, Serum 2.8 gm/dL (3.4-4.8); Albumin/Globulin Ratio 1.6 (1.2-2.2); Alkaline Phosphatase 72 U/L (46-116); Anion Gap -5 (7-16); Aspartate Amino Transferase 14 U/L (0-34); BUN/Creatinine Ratio 8 Ratio (12-20); Bilirubin,Total 0.3 mg/dL (0.3-1.2); Blood Urea Nitrogen < 5 mg/dL (9-23); Calcium 7.8 mg/dL (8.3-10.6); Calcium (Corrected) 8.8 mg/dL (8.5-10.1); Carbon Dioxide 31.8 mMol/L (20.0-31.0); Chloride 117 mMol/L (98-107); Creatinine (Component) 0.6 mg/dL (0.6-1.3); Estimated Creatinine Clearance 74.2 mL/min (>60); Globulin 1.8 gm/dL (2.3-3.5); Glucose 96 mg/dL (74-106); Magnesium 1.6 mg/dL (1.6-2.6); Osmolality,Calculated 284 (275-295); Phosphorous 1.7 mg/dL (2.4-5.1); Potassium 3.9 mMol/L (3.4-5.1); Sodium 144 mMol/L (136-145); Total Protein 4.6 gm/dL (5.7-8.2); eGFR > 60 See Note
[2025-05-10 07:35] VITALS: PULSE 62; RESP 18; RESP 95
[2025-05-10 08:00] VITALS: BP 150/61; PULSE 68; RESP 20; TEMP 36.8; O2SAT 97
[2025-05-10] MEDS: POLYETHYLENE GLYCOL 17 GM PACKET PO (09:07)
[2025-05-10] MEDS: PANTOPRAZOLE INJ 40 MG VIAL IVP (09:07)
[2025-05-10] MEDS: NAPH,KPH MBDB 1 PACKET (1.5 GM) PO (09:08)
[2025-05-10] MEDS: cefTRIAXone/D5w 1gm IV premix 1 GM/50 ML BAG IV (09:08)
[2025-05-10] MEDS: Magnesium Sulfate 4 GM Ivpb 4 GM/50 ML BAG IV (09:08)
[2025-05-10] MEDS: RASAGILINE MESYLATE 1 MG TABLET PO (09:08)
--- NOTE | 2025-05-10 09:57 | ESDS_ITS ---
Planned Discharge Date 05/10/25 DS: Providers Provider Date of admission: 05/03/25 09:54 Primary care physician: Jani Henry MD Admitting Provider: Marva Hale MD Attending Provider on Admission: Zeferino Hodge MD Consults: 05/03/25 01:14 Consult to Gastroenterology Stat Comment: GI bleed Consulting Provider: Soham Siddiqui 05/03/25 10:00 Referral Speech Therapy Stat Comment: 05/03/25 12:51 Referral Registered Dietitian Routine Comment: Instructions: Poor oral intake, unintentional weight loss, underweight 05/03/25 12:52 Referral Wound Care Routine Comment: 05/06/25 15:30 Referral Hospice Routine Comment: Attending Provider on DC: Zeferino Hodge MD Discharging Provider: Zeferino Hodge MD DS: Diagnosis Problem List Completed Was Problem List Reviewed/Reconciled?: Yes Hospital Course Hospital Course Hospital course: Reason for hospitalization: GI bleed, UTI Brian Patten is 85 yr male with PMH of viral myocarditis, coronary artery disease status post stent, HFrEF 30 to 35%, Parkinson's, traumatic ICH s/p craniotomy, chronic urinary retention requiring self-catheterization, history of GI bleeding, multiple skin cancer presented to [facility] ED on 05/03/25 due to hematuria and lethargy. Patient's caregiver stated that he was noted to have darkening urine today and that around 2 before admission it was clear and not dark at all. He has been losing weight and he was recently on antibiotics for UTI. Hb on admission 6.7 (was given 1 unit PRBC), sodium 147, chloride 141, creatinine 1.2. Severely cachectic with BMI 17. GI Dr. Siddiqui was consulted and patient admitted for workup of GI bleed. He had EGD completed on 05/04/25 negative for any bleeding but showed esophagitis. To rule out lower GI bleed he was started on GoLytely prep for colonoscopy. Prep took about 5 days due to severe stool impaction. Eventually was placed on NG tube for fluids and given GoLytely through the NG tube. Colonoscopy completed on 05/09/2025 positive for hemorrhoids, diverticula, polyp that was removed for pathology. The patient's daughter was extensively counseled on his prognosis and acute decline. She agreed to take him home with hospice. During hospitalization, SHANTA resolved with adequate fluids and his mentation improved. After colonoscopy he was started on a diet which he tolerated very well. Hb remained stable 9-10. UTI was treated with IV antibiotics and transitioned to PO. Patient is now in stable condition and ready for discharge. Recommendations were given as below. Discharge Recommendations: Continue taking nitrofurantoin antibiotic as prescribed for treatment of UTI. Take Miralax BID and semicote BID for preventing constipation. Stop taking ferrous sulfate, Plavix, and furosemide until you see your PCP. May resume other previous medications. GI will contact you with results of polyp biopsy. Hospital Diagnoses: #Acute blood loss anemia #Lower GI bleed #SHANTA (resolved) on CKD #Electrolyte imbalances #Complicated UTI, staph aureus #Hx of chronic urinary retention s/p suprapubic catheter #Hx BPH #Failure to thrive #Malnutrition #Hx CAD s/p stents #Hx Parkinsons The patient's management plan was discussed with my attending physician Dr. Hodge. Evelyn Bhardwaj MD, PGY-1 Time Spent with Patient Time attestation: Total time spent providing and/or coordinating discharge services: Time spent: Greater than 30 minutes Exam Vital Signs Temp Pulse Resp BP Pulse Ox O2 Del Method O2 Flow Rate 98.2 F 68 20 150/61 H 97 Room Air 1 05/10/25 08:00 05/10/25 08:00 05/10/25 08:00 05/10/25 08:00 05/10/25 08:00 05/10/25 08:00 05/09/25 20:42 Narrative Exam General: Elderly male, cachectic, awake, more alert today HEENT: NCAT, No JVD noted. Pupils are equal and reactive to light bilaterally, NG tube. Cardiovascular: Normal S1 and S2. Regular rate and rhythm. Respiratory: no wheezing, no crackles Abdomen: normal bowel sounds, no tenderness Skin: Warm to touch, dry, no rashes noted, purpura throughout upper extremities. Musculoskeletal: No gross injuries. No pitting edema Neuro: no focal neuro deficits. Eyes open, tracks. Discharge Plan Plan Patient Disposition: Home w/HOSPICE Prescriptions/Referrals Prescriptions/Med Rec: New polyethylene glycol 3350 [Miralax] 17 gram/dose powder 4 g PO BID 30 Days Qty: 119 0RF simethicone [Gas Relief (simethicone)] 125 mg capsule 125 mg PO QDAY PRN (Reason: abdominal distention) 30 Days Qty: 30 0RF Continued rasagiline [Azilect] 1 mg Tablet 1 mg PO QDAY ondansetron HCl 4 mg tablet 4 mg PO Q8H PRN (Reason: nausea and vomiting) Qty: 7 0RF sertraline 150 mg Capsule 150 mg PO HS Salonpas 3.1-10-6 % adhesive patch,medicated 1 patch topical QDAY PRN (Reason: pain) dkwvpxeum-ojyxozix-fensnvykcw 37.5-150-200 mg tablet 1 tab PO QID quetiapine 50 mg tablet 50 mg PO HS quetiapine 25 mg tablet 25 mg PO QDAY PRN (Reason: increased anxiety) Patient Comments: TAKE 1 TABLET BY MOUTH EVERY DAY melatonin 5 mg capsule 5 mg PO HS clobetasol 0.05 % cream 1 applic TOPICAL BID Patient Comments: APPLY A THIN LAYER TO THE AFFECTED AREA AROUND BACK 2-3 X A DAY AVOID FACE AND EYELIDS. prednisolone sod ph-bromfenac 1-0.075 % drops 1 drp ophthalmic (eye) BID Rx Instructions: Distill one drop in left eye twice daily for week 3 Distill one drop in left eye daily for week 4 then discontinue pantoprazole 40 mg tablet,delayed release (DR/EC) 40 mg PO QDAY Patient Comments: TAKE 1 TABLET BY MOUTH EVERY DAY donepezil 5 mg Tablet 5 mg PO HS finasteride 5 mg Tablet 5 mg PO HS Held clopidogrel [Plavix] 75 mg Tablet 75 mg PO QDAY Hold Instructions: Resume on 05/23/25. Follow-up outpatient with PCP in 1 to 2 weeks before restarting, close monitor any signs and symptoms of bleeding furosemide 20 mg tablet 20 mg PO QDAY Hold Instructions: Resume on 05/23/25. Hold, repeat renal panel before restarting Patient Comments: TAKE 1 TABLET BY MOUTH EVERY DAY Discontinued ferrous sulfate 325 mg (65 mg iron) tablet 325 mg PO QDAY Qty: 60 0RF ciprofloxacin HCl 500 mg tablet 500 mg PO BID Qty: 14 0RF Referrals: Jani Henry MD [Primary Care Provider] - Patient/Caregiver Discharge Instructions Discharge Activity: activity as tolerated Other Discharge Activity Instructions:: Continue taking nitrofurantoin antibiotic as prescribed for treatment of UTI. Take Miralax BID and semicote BID for preventing constipation. Stop taking ferrous sulfate, Plavix, and furosemide until you see your PCP. May resume other previous medications. GI will contact you with results of polyp biopsy. Education Materials: Bleeding Gastrointestinal, Anemia, Colonoscopy, Urinary Tract Infections in Men Print Language: Kiswahili Stand Alone Forms: Sarah Award Info., Patient Portal Info Letter Discharge Order Discharge Orders: Discharge (Routine); Ordered 05/10/25 Ordered By: Evelyn Bhardwaj Quality Discharge Quality Measures VTE prophylaxis MD Attestestation MD Attestation I have examined the patient, reviewed labs and imaging findings, discussed the case with the resident(s), and reviewed entered orders. I agree with the plan of care as outlined in this note. Time Spent: [address] Naveen MD
[2025-05-10] MEDS: BALSAM PERU/CASTOR OIL (Venelex) 60 GM TUBE TOP (10:30)
[2025-05-10] MEDS: CARBIDOPA LEVODOPA ENTACAPONE PO (10:35)
[2025-05-10 12:00] VITALS: BP 141/69; PULSE 83; RESP 20; TEMP 36.9; O2SAT 95
--- NOTE | 2025-05-10 13:48 | PC.SS ---
SS was called by Fernanda Alejo at [facility] pt is being DC she received a call from from Dtr, [place], SS was unaware. JERMAIN updated Stephanie at [facility] [phone] pt is ready for DC.
--- NOTE | 2025-05-10 18:29 | PD.IMPROG ---
Documentation for date of: 05/10/25 Subjective Subjective Interval history: Late entry for the note Case discussed with internal medicine team Patient will be going home on MiraLAX twice a day Senokot twice a day Patient be followed by the PCP I will send him the reports of the resected polyp histopathology Exam Vital Signs Temp Pulse Resp BP Pulse Ox O2 Del Method O2 Flow Rate 98.5 F 83 20 141/69 H 95 Room Air 1 05/10/25 12:00 05/10/25 12:00 05/10/25 12:00 05/10/25 12:00 05/10/25 12:00 05/10/25 12:00 05/09/25 20:42 Objective Labs 05/10/25 05:40 05/10/25 05:40 Labs: Laboratory Results - last 24 hr 05/10/25 05:40 WBC 4.2 RBC 3.13 L Hgb 9.7 L Hct 28.6 L MCV 91 MCH 31.0 MCHC 33.9 RDW Std Deviation 51.5 H Plt Count 171 Neut % (Auto) 63 Lymph % (Auto) 20 Menard % (Auto) 11 Eos % (Auto) 6 Baso % (Auto) 1 Neut # (Auto) 2.7 Lymph # (Auto) 0.8 L [place]ard # (Auto) 0.5 Eos # (Auto) 0.2 Baso # (Auto) 0.0 Immature Gran # (Auto) 0.01 H Absolute Nucleated RBC 0.00 Immature Gran % 0 Nucleated RBC % 0 Sodium 144 Potassium 3.9 D Chloride 117 H Carbon Dioxide 31.8 H Anion Gap -5 L BUN < 5 L Creatinine 0.6 Estim Creat Clear Calc 74.2 eGFR > 60 BUN/Creatinine Ratio 8 L Glucose 96 Calculated Osmolality 284 Calcium 7.8 L Corrected Calcium 8.8 Phosphorus 1.7 L Magnesium 1.6 Total Bilirubin 0.3 AST 14 ALT 9 L Alkaline Phosphatase 72 Total Protein 4.6 L Albumin 2.8 L Globulin 1.8 L Albumin/Globulin Ratio 1.6 Impressions Impression: Obstipation constipation Stool impaction Endoscopy resection of the colonic polyps Okay to discharge the patient home to be followed by the PCP ABG Interpretation ABG results: 05/04/25 10:00 ABG pH 7.38 ABG pCO2 44 ABG pO2 130 H ABG HCO3 26 ABG O2 Saturation 100 H ABG Base Excess 0 Assessment & Plan A&P Narrative # Anemia blood loss # Occult GI bleeding with FOBT positive likely requiring blood transfusion Agree with blood transfusion consent obtained for fiberoptic esophagogastroduodenoscopy with possible biopsy possible therapeutic intervention under intravenous moderate sedation If negative we will consider fiberoptic colonoscopy prior to discharge although patient is DNI DNR but the family does want those things done We will follow the patient Other medical problems include Coronary artery disease status post PTCA Parkinson disease Recurrent and chronic UTIs ICH requiring craniotomy Viral myocarditis Gross electrolyte abnormalities Thank you very much for the opportunity to participate in the care of this patient Time Spent With Patient Time: Total time spent is greater than 50% in coordination of care (as documented) at patient's floor/unit and/or counseling patient:
== END 2025-05-10 12:46 | disposition hospice, home (50) | DRG 377 ==
LOC: SERX 05-03 04:52 → SERHOLD 05-03 10:10 → S3SX 05-04 06:31
PROVIDERS: Family Medicine; Specialist; Student in an Organized Health Care Education/Training Program; Admitting Provider Internal Medicine; Emergency Provider Emergency Medicine; PCP Family Medicine; Visit Provider Student in an Organized Health Care Education/Training Program
PROC: (CPT 43239; principal; 2025-05-04 19:30)
PROC: 0DJD8ZZ Inspection of Lower Intestinal Tract, Via Natural or Artificial Opening Endoscopic (ICD-10-PCS; CPT 45378; principal; 2025-05-08 17:30)
DX: K92.2 Gastrointestinal hemorrhage, unspecified (principal); E43 Unspecified severe protein-calorie malnutrition; K21.01 Gastro-esophageal reflux disease with esophagitis, with bleeding; D62 Acute posthemorrhagic anemia; I13.0 Hypertensive heart and chronic kidney disease with heart failure and stage 1 through stage 4 chronic kidney disease, or unspecified chronic kidney disease; I50.22 Chronic systolic (congestive) heart failure; N17.9 Acute kidney failure, unspecified; R64 Cachexia; Z68.1 Body mass index [BMI] 19.9 or less, adult; E87.0 Hyperosmolality and hypernatremia; N39.0 Urinary tract infection, site not specified; E87.1 Hypo-osmolality and hyponatremia; B33.22 Viral myocarditis; Z16.24 Resistance to multiple antibiotics; K63.5 Polyp of colon; G20.A1 Parkinson's disease without dyskinesia, without mention of fluctuations; Z95.5 Presence of coronary angioplasty implant and graft; I25.10 Atherosclerotic heart disease of native coronary artery without angina pectoris; Z85.828 Personal history of other malignant neoplasm of skin; N40.1 Benign prostatic hyperplasia with lower urinary tract symptoms; R33.8 Other retention of urine; R62.7 Adult failure to thrive; B95.61 Methicillin susceptible Staphylococcus aureus infection as the cause of diseases classified elsewhere; D50.0 Iron deficiency anemia secondary to blood loss (chronic); E78.00 Pure hypercholesterolemia, unspecified; E83.51 Hypocalcemia; E86.0 Dehydration; E87.6 Hypokalemia; E87.8 Other disorders of electrolyte and fluid balance, not elsewhere classified; H91.90 Unspecified hearing loss, unspecified ear; I71.43 Infrarenal abdominal aortic aneurysm, without rupture; N18.9 Chronic kidney disease, unspecified; K64.9 Unspecified hemorrhoids; K59.00 Constipation, unspecified; K57.30 Diverticulosis of large intestine without perforation or abscess without bleeding; K56.41 Fecal impaction; K29.70 Gastritis, unspecified, without bleeding; Z66 Do not resuscitate; Z79.899 Other long term (current) drug therapy; Z86.73 Personal history of transient ischemic attack (TIA), and cerebral infarction without residual deficits; Z87.440 Personal history of urinary (tract) infections; Z91.148 Patient's other noncompliance with medication regimen for other reason; R31.9 Hematuria, unspecified
CPT/HCPCS: 36415; 36430; 36600; 71250; 74176; 80048; 80053; 80069; 81001; 82150; 82248; 82270; 82803; 83605; 83690; 83735; 83880; 84100; 84132; 84145; 84295; 84439; 84443; 84484; 85025; 85379; 85610; 85652; 85730; 86140; 86850; 86900; 86901; 86923; 87040; 87077; 87086; 87186; 92526; 92610; 93005; 93225; 94762; 96365; 96375; 96376; 99285; A4217; A4649; J0613; J0696; J2060; J2250; J2405; J2470; J2543; J3010; J3475; J3480; J3490; J7050; J7070; J7120; P9016; A9270

== ENCOUNTER 2025-05-12 14:41 | Outpatient (RCR) | payer MEDICARE, SELFPAY ==
--- NOTE | 2025-05-12 15:58 | PTNOTE_ITS ---
PT OP Initial Eval Patient Information Outpatient Physical Therapy Treatment Date: 05/12/25 Visit Reasons: Wheelchair/gait balance Medical Diagnosis: Parkinson Treatment Dx #1: Balance Deficits Treatment Dx #2: Difficulty Walking Start of Care: 05/12/25 Date of Onset: 6 months ago Smoking Status Smoking Status: Never smoker Initial Assessment Subjective: Pt is a 85 y/o male reports of parkinson worsening in the past 6 months. Pt now has difficulty with walking, standing, chores, self care, and performing ADLs. Pt needs a power w/c to help improve independence with ADLs. Objective: BUE AROM: all motions are WFL BUE MMTs: grossly 3/5 BLE AROM: all motions are WFL BLE MMTs: grossly 3/5 Please see power w/c for more details Assessment: Pt demonstrate decondition with extremities weakness leading to difficulty with ADLs. Pt will benefit from a power w/c to help be more independent with ADLs and decrease future falls. Pt was evaluated and d/c from care; thank you for your referrals. Short Term and Residential Goals 1) Eval and D/C 2) Recommend power w/c Treatment Plan Frequency and Duration: 1x Certification Dates: 05/12/25 to 08/12/25 Procedure Charges OP PT Eval Mod Complex 30 minutes: Yes
== END 2025-05-25 23:59 | disposition home or self-care (01) ==
LOC: CPTX 14:41
PROVIDERS: PCP Family Medicine
DX: R26.2 Difficulty in walking, not elsewhere classified (principal); R53.1 Weakness; R26.89 Other abnormalities of gait and mobility; G20.A1 Parkinson's disease without dyskinesia, without mention of fluctuations
CPT/HCPCS: 97162

== ENCOUNTER 2025-06-24 11:30 | Outpatient (RCR) | payer MEDICARE, SELFPAY ==
--- NOTE | 2025-05-26 15:13 | PT.OIERPT ---
PT OP Initial Eval Patient Information Outpatient Physical Therapy Treatment Date: 05/26/25 Visit Reasons: lower body strength/gait Medical Diagnosis: G20 Treatment Dx #1: gait instability Treatment Dx #2: balance impairment Start of Care: 05/26/25 Date of Onset: 09/2024 Smoking Status Smoking Status: Former smoker Years smoked: 45 Initial Assessment Subjective: Pt is 85 yr old male with Parkinson's presents in W/C with 2 caretakers and his dtr who are helping with the Hx. They say he fell in September and fractured the L hip which was replaced and then he suffered a TBI which has affected functional mobility. He can stand pivot transfer with assist and sometimes ambulate with assist HH distances. PLOF: pt was walking with a walking stick. Since the fall he has been in the W/C and requires assist to stand and transfer. PMH: Parkinson's, CHF, stage 3 kidney disease, anemia, [place] Pt goal: to walk independently. Dtr's goal: more safety with tranfers and moving around the house Objective: Sit to stand transfer: minAx2, ModAx1 and gait belt Gait: symmetrical step through pattern with parallel bars L LE strength: Quads: 3-/5 HIp abduction: 4/5 Hip adduction: 4/5 Assessment: Pt requires assist to transfer and ambulate due to poor balance in standing and ambulating consistent with TBI and Parkinson's. Pt requires skilled therapy and has fair rehab potential to meet goals. Short Term and Serging Machine Operator Automatic Goals 1. Ind with HEP 2. Pt will transfer from sit to stand with CGAx1 3. Pt will ambulate without LOB and CGAx1 and FWW x20' Treatment Plan ? 1. Manual therapy ? 2. Therex ? 3. Modalities as indicated, moist heat, ice, estim 4. Neuromuscular reeducation 5. Gait training Frequency and Duration: 1-2x a week for 12 sessions Certification Dates: 05/26/25 to 08/25/25 Procedure Charges OP PT Eval Mod Complex 30 minutes: Yes
--- NOTE | 2025-06-08 18:04 | PT.ODAYNRPT ---
PT Outpatient Daily Note OP Daily Note Outpatient Physical Therapy Treatment Date: 06/08/25 Visit Reasons: lower body strength/gait Subjective: Pt arrives with 2 caregivers. He doesn't respond to questions appropriately but is cooperative and follows commands to participate in therapy Rx. Objective: See F/S for therex Assessment: Pt leans fwd at the trunk while using walker and looks down. He can correct for a few seconds with max cues but reverts to flexed standing posture. Plan: Continue per POC Length of Time (minutes) of Treatment: 30 Minutes Procedure Charges Therapeutic Exercise 30 minutes: Yes
--- NOTE | 2025-06-11 11:47 | PT.ODAYNRPT ---
PT Outpatient Daily Note OP Daily Note Outpatient Physical Therapy Treatment Date: 06/11/25 Visit Reasons: lower body strength/gait Subjective: Pt arrives with 2 caregivers. He doesn't respond to questions appropriately but is cooperative and follows commands to participate in therapy Rx. Objective: See F/S for therex Assessment: Pt leans fwd at the trunk while using walker and looks down. He can correct for a few seconds with max cues but reverts to flexed standing posture. Plan: Continue per POC Length of Time (minutes) of Treatment: 30 Minutes Procedure Charges Therapeutic Exercise 30 minutes: Yes
--- NOTE | 2025-06-15 12:28 | PT.ODAYNRPT ---
PT Outpatient Daily Note OP Daily Note Outpatient Physical Therapy Treatment Date: 06/15/25 Visit Reasons: lower body strength/gait Subjective: Pt arrives with 2 caregivers who say pt is more confused today. He doesn't respond to questions appropriately but is cooperative and follows commands to participate in therapy Rx. Objective: See F/S for therex Assessment: Pt was more confused with following commands today. Hard to assess progress so far. Pt leans fwd at the trunk while using walker and looks down. He can correct for a few seconds with max cues but reverts to flexed standing posture. Plan: Continue per POC Length of Time (minutes) of Treatment: 30 Minutes Procedure Charges Therapeutic Exercise 30 minutes: Yes
--- NOTE | 2025-06-22 14:16 | PT.ODAYNRPT ---
PT Outpatient Daily Note OP Daily Note Outpatient Physical Therapy Treatment Date: 06/22/25 Visit Reasons: lower body strength/gait Subjective: Pt brought in by two caregivers. Objective: Please see flow sheet for ther ex list. Assessment: Pt ambulated 3x around gym floor using FWW, pt requires assistance to maneuver FWW. Pt tends to push FWW far from self and demonstrates fast gait speed, frequent verbal cues for instructions to correct s footing and to decrease yanci. Plan: Continue with pOC. Length of Time (minutes) of Treatment: 30 Minutes CONSUMER ANALYST Service Modifier Method I: Divide the number of min of care provided by the CONSUMER ANALYST/SODIUM CHLORITE OPERATOR by the total min of care provided then multiply by 100. If greater than 11 percent modifier is required. Method II: Divide the total time of care provided to patient by 10 (round to the nearest whole number) and add 1 min. to set the minimum time requirement. If treatment total was 60 min., then 10% of 6 min PT CQ modifier applied: CQ Modifier applied Procedure Charges Therapeutic Exercise 30 minutes: Yes
--- NOTE | 2025-06-24 13:24 | PT.ODAYNRPT ---
PT Outpatient Daily Note OP Daily Note Outpatient Physical Therapy Treatment Date: 06/24/25 Visit Reasons: lower body strength/gait Subjective: He doesn't respond to questions appropriately but is cooperative and follows commands to participate in therapy Rx. Objective: See F/S for therex Assessment: Pt was confused with following commands today. Hard to assess progress so far. Pt leans fwd at the trunk while using walker and looks down. He can correct for a few seconds with max cues but reverts to flexed standing posture. Pt requires minAx1 to ambulate safely and for directions as he tends to run into objects with FWW. Plan: Continue per POC Length of Time (minutes) of Treatment: 30 Minutes Procedure Charges Therapeutic Exercise 30 minutes: Yes
== END 2025-06-25 23:59 | disposition home or self-care (01) ==
LOC: CPTX 11:30
PROVIDERS: PCP Family Medicine; Referring Provider Psychiatry & Neurology Neurology; Visit Provider Psychiatry & Neurology Neurology
DX: R26.89 Other abnormalities of gait and mobility (principal); G20.A1 Parkinson's disease without dyskinesia, without mention of fluctuations
CPT/HCPCS: 97110; 97162

== ENCOUNTER 2025-07-23 13:00 | Outpatient (RCR) | payer MEDICARE, SELFPAY ==
--- NOTE | 2025-07-06 12:58 | PT.ODAYNRPT ---
PT Outpatient Daily Note OP Daily Note Outpatient Physical Therapy Treatment Date: 07/06/25 Visit Reasons: Strength and mobility Subjective: Pt brought in by caregiver. Objective: Please see flow sheet for ther ex list. Assessment: Pt demonstrates improved gait, required less assistance to maneuver FWW. Plan: Continue with POC. Length of Time (minutes) of Treatment: 30 Minutes COURTESY CAR DRIVER Service Modifier Method I: Divide the number of min of care provided by the COURTESY CAR DRIVER/HOPPER OPERATOR by the total min of care provided then multiply by 100. If greater than 11 percent modifier is required. Method II: Divide the total time of care provided to patient by 10 (round to the nearest whole number) and add 1 min. to set the minimum time requirement. If treatment total was 60 min., then 10% of 6 min PT CQ modifier applied: CQ Modifier applied Procedure Charges Therapeutic Exercise 30 minutes: Yes
--- NOTE | 2025-07-08 13:54 | PT.ODAYNRPT ---
PT Outpatient Daily Note OP Daily Note Outpatient Physical Therapy Treatment Date: 07/08/25 Visit Reasons: Strength and mobility Subjective: Pt brought in by caregiver. Objective: Please see flow sheet for ther ex list. Assessment: Pt demonstrates poor motor control today and required verbal and tactile cues to stay on task. Pt involuntary movements worse today than last PT session. Plan: Continue with pOC. Length of Time (minutes) of Treatment: 30 Minutes FILM EDITOR SUPERVISOR Service Modifier Method I: Divide the number of min of care provided by the FILM EDITOR SUPERVISOR/MANAGEMENT NURSE RN by the total min of care provided then multiply by 100. If greater than 11 percent modifier is required. Method II: Divide the total time of care provided to patient by 10 (round to the nearest whole number) and add 1 min. to set the minimum time requirement. If treatment total was 60 min., then 10% of 6 min PT CQ modifier applied: CQ Modifier applied Procedure Charges Therapeutic Exercise 30 minutes: Yes
--- NOTE | 2025-07-17 13:57 | PTNOTE_ITS ---
PT Outpatient Daily Note OP Daily Note Outpatient Physical Therapy Treatment Date: 07/17/25 Visit Reasons: Strength and mobility Subjective: Pt brought in by 2 caregivers. Objective: Please see flow sheet for ther ex list. Assessment: Pt has difficulty following instruction and has poor safety awareness requires Max cues to stay on tasks and to perform interventions with desired technique. Plan: Continue with pOC. Length of Time (minutes) of Treatment: 30 Minutes SHIRRING MACHINE OPERATOR AUTOMATIC Service Modifier Method I: Divide the number of min of care provided by the SHIRRING MACHINE OPERATOR AUTOMATIC/MISSY by the total min of care provided then multiply by 100. If greater than 11 percent modifier is required. Method II: Divide the total time of care provided to patient by 10 (round to the nearest whole number) and add 1 min. to set the minimum time requirement. If treatment total was 60 min., then 10% of 6 min PT CQ modifier applied: CQ Modifier applied Procedure Charges Therapeutic Exercise 30 minutes: Yes
--- NOTE | 2025-07-23 13:48 | PT.ODS1RPT ---
PT OP Progress/Discharge Note Date of Service: 07/23/25 Progress Note/DC Note Progress Note/Discharge Note: Progress Note Patient Information Visit Reasons: Strength and mobility Service Continue Service or Discharge: Continue Service Status Subjective: Pt is confused and doesn't answer appropriately most of the time. Caretakers notice improvement in mobility and balance. Objective: Transfers sit to stand: CGAx1 Ambulatory distance: 60' with FWW and max cues for direction Assessment: Pt has attended the eval and 9 Rx visits with good progress with therapy goals. Pt is limited by mental status and confusion and he has difficulty with motor planning. He can transfer from sit to stand with CGAx1 and ambulate without LOB and CGAx1 and FWW more than 20' to meet those goals. According to caretakers pt is not allowed to do therapy or HEP at home limited by his . He would benefit from a fitness program after therapy visits such as [facility]. Plan: Continue per POC x2 more to 12 visits. Procedure Charges Therapeutic Exercise 30 minutes: Yes
== END 2025-07-26 23:59 | disposition home or self-care (01) ==
LOC: CPTX 13:00
PROVIDERS: PCP Family Medicine; Referring Provider Family Medicine; Visit Provider Family Medicine
DX: R26.2 Difficulty in walking, not elsewhere classified (principal); R26.89 Other abnormalities of gait and mobility; R53.1 Weakness; G20.A1 Parkinson's disease without dyskinesia, without mention of fluctuations
CPT/HCPCS: 97110

== ENCOUNTER 2025-08-11 11:13 | Outpatient (RCR) | payer MEDICARE, SELFPAY ==
--- NOTE | 2025-08-11 11:45 | PT.ODS1RPT ---
PT OP Progress/Discharge Note Date of Service: 08/11/25 Progress Note/DC Note Progress Note/Discharge Note: DC Note Patient Information Visit Reasons: Strength and mobility Service Continue Service or Discharge: Discharge Status Subjective: Pt is confused and doesn't answer appropriately most of the time. Caretakers notice improvement in mobility and balance. Objective: Transfers sit to stand: CGAx1 Ambulatory distance: 60' with FWW and max cues for direction Gait: symmetrical with FWW Strength: Quads: 3+/5 B Hip abd/add: 4/5 Assessment: Pt has attended the eval and 11 Rx visits with good progress to meet therapy goals. Pt is limited by mental status and confusion and he has difficulty with motor planning. He can transfer from sit to stand with CGAx1 and ambulate without LOB and CGAx1 and FWW more than 20' to meet those goals but needs cues to keep walker close to him. According to caretakers pt is not allowed to do therapy or HEP at home due to his . He would benefit from a fitness program after therapy visits such as [facility]. Plan: D/C Procedure Charges Therapeutic Exercise 30 minutes: Yes
== END 2025-08-25 23:59 | disposition home or self-care (01) ==
LOC: CPTX 11:13
PROVIDERS: PCP Family Medicine; Referring Provider Family Medicine; Visit Provider Family Medicine
DX: R26.89 Other abnormalities of gait and mobility (principal)
CPT/HCPCS: 97110

== ENCOUNTER → 2025-09-22 | Outpatient (CLI) | payer MEDICARE, SELFPAY ==
--- NOTE | 2025-09-22 12:24 | XR_ITS ---
Examination: Bilateral hips, AP pelvis, 5 views Technique: AP, lateral views both hips, AP pelvis, 5 views Exam date and time: September 22, 2025, 1257 hours INDICATIONS: Patient fell 4 days ago with injury both hips, bilateral hip pain. FINDINGS: Significant osteopenia No right hip fracture or dislocation Left hip hemiarthroplasty with satisfactory alignment No loosening of the prosthetic components Bones of the pelvis intact IMPRESSION: No acute hip or pelvic fracture
--- NOTE | 2025-09-22 12:24 | XR_ITS ---
Examination: Lumbar spine, 5 views Technique: Lumbar spine AP, lateral, coned lateral lower lumbar spine, bilateral obliques 5 views Exam date and time: September 22, 2025, 1257 hours INDICATION: Patient fell 4 days ago with injury to lower back, lower back pain. FINDINGS: Severe osteopenia Heavy abdominal aortic calcification, transverse dimension at least 3.6 cm Facet arthropathy Acute appearing compression fractures L1 and T12 IMPRESSION: Recommend CT scan lumbar spine follow-up to confirm acute compression fractures L1 and T12, mild
== END | disposition home or self-care (01) ==
PROVIDERS: PCP Family Medicine; Referring Provider Family Medicine; Visit Provider Family Medicine
DX: S79.912A Unspecified injury of left hip, initial encounter (principal); S79.911A Unspecified injury of right hip, initial encounter; W19.XXXA Unspecified fall, initial encounter
CPT/HCPCS: 72110; 73523

== ENCOUNTER → 2025-11-03 | Outpatient (CLI) | payer MEDICARE, SELFPAY ==
--- NOTE | 2025-11-03 14:30 | XR_ITS ---
Examination: CT of the thoracic spine, without contrast. 2-D sagittal reconstructions. 2-D coronal reconstructions. 3-D reconstructions. Date and time of exam: 11/03/2025 at 2:15 p.m. CTDI: vol (mGy): 14.3 DLP: (mGycm): 523 Technique: Multiple 1.25 mm axial sections of the thoracic spine have been obtained. 2-D sagittal and coronal reconstructions have been obtained. 3-D reconstructions have been obtained. Low dose protocols were performed. One or more of the following dose reduction techniques were used; automated exposure control, adjustment of the mA and/or KV according to patient size, use of iterative reconstruction technique. Comparison is made with a CT of the chest and abdomen on 05/14/2023. Findings: There is extremely extensive atherosclerotic calcification involving the entire thoracic and abdominal aorta, and there are numerous small aneurysmal areas of dilatation involving the abdominal aorta There is major abnormal enlargement of both right and left main pulmonary arteries indicating major pulmonary arterial hypertension. These markedly enlarged pulmonary arteries have developed since the prior CT on 05/14/2023, at that time the right pulmonary artery measures 2.4 cm in diameter, on today's study it has enlarged to 3.0 cm In the upper lung zones emphysematous blebs are noted bilaterally. There is major enlargement of the left atrium. There is mild aneurysm involving the proximal abdominal aorta measuring 3.4 cm In the spine there is multilevel degenerative disc space narrowing noted at the first thoracic spine. Major osteoporosis noted. There is an old remote exceedingly minimal anterior wedge compression injury involving T2 and T3 in the upper dorsal spine these are very minimal. There is an acute fairly prominent compression fracture involving the superior articular surface of L1 in the upper lumbar spine. There is a vacuum phenomenon within the T12-L1 disc space. I would estimate that there is about 20% loss of height and compression involving this acute compression fracture of L1. This was not present on the previous CT exam of 05/14/2023 No other fractures or abnormalities are seen. IMPRESSION: 1. Patient has suffered an acute anterior wedge compression fracture involving the superior articular surface of the first lumbar vertebra with about 20% loss of height. 2. Extensive osteoporosis. 3. Exceedingly minor chronic anterior wedge compression injuries of T2 and T3 not felt to be significant 4. There is exceedingly heavy vascular calcification noted involving the entire thoracic and abdominal aorta, and the upper abdominal aorta there are a few areas of aneurysm formation however the maximum size is 3.4 cm in diameter 5 see above regarding the fact that the patient has developed major pulmonary arterial hypertension and significant enlargement of the central pulmonary arteries when compared with the previous CT on 05/14/2023
== END | disposition home or self-care (01) ==
PROVIDERS: PCP Family Medicine; Referring Provider Family Medicine; Visit Provider Family Medicine
DX: S32.010A Wedge compression fracture of first lumbar vertebra, initial encounter for closed fracture (principal); X58.XXXA Exposure to other specified factors, initial encounter; M81.0 Age-related osteoporosis without current pathological fracture; I70.0 Atherosclerosis of aorta; I27.21 Secondary pulmonary arterial hypertension; I77.89 Other specified disorders of arteries and arterioles
CPT/HCPCS: 72128

== ENCOUNTER 2025-11-17 11:30 | Outpatient (RCR) | payer MEDICARE, SELFPAY ==
--- NOTE | 2025-11-11 11:11 | PT.OIERPT ---
PT OP Initial Eval Patient Information Outpatient Physical Therapy Treatment Date: 11/11/25 Visit Reasons: Parkinson's Medical Diagnosis: G20.B2 Treatment Dx #1: gait instability Treatment Dx #2: balance impairment Date of Onset: 10/19/25 Smoking Status Smoking Status: Former smoker Tobacco Use: Cigarette Years smoked: 45 Are you interested in quitting?: No Would you like additional Smoking Cessation Counseling?: No Initial Assessment Subjective: Pt is 85 yr old male with Parkinson's presents in W/C with 2 caretakers who are helping with the Hx. They say he fell recently with lumbar compression FX. He can stand pivot transfer with assist and sometimes ambulate with assist HH distances. PLOF: pt was walking with a walker. Since the fall he has been in the W/C and requires assist to stand and transfer. PMH: Parkinson's, CHF, stage 3 kidney disease, anemia, [employer] Rigger's goal: more safety with tranfers and moving around the house Objective: Sit to stand transfer: CGAx1 and uses hands to pull up Gait: symmetrical step through pattern with parallel bars, mild fwd flexed posture at the trunk L LE strength: Quads: 4-/5 B Hip abduction: 4-/5 Hip adduction: 4+/5 Assessment: Pt is confused and requires assist to transfer and ambulate for directions and cues in standing and ambulating consistent with TBI and Parkinson's. Pt requires skilled therapy and has fair rehab potential to meet goals. Short Term and Counter Supply Worker Goals 1. Ind with HEP 2. Pt will transfer from sit to stand with CGAx1 3. Pt will ambulate without LOB and CGAx1 and FWW x20' to improve safety with HH ambulation Treatment Plan 1. Manual therapy ? 2. Therex ? 3. Modalities as indicated, moist heat, ice, estim 4. Neuromuscular reeducation 5. Gait training Frequency and Duration: 1-2x a week for 12 sessions Certification Dates: 11/11/25 to 02/09/26 Procedure Charges OP PT Eval Mod Complex 30 minutes: Yes
--- NOTE | 2025-11-17 12:55 | PTNOTE_ITS ---
PT Outpatient Daily Note OP Daily Note Outpatient Physical Therapy Treatment Date: 11/17/25 Visit Reasons: Parkinson's Subjective: Pt brought in by caregivers. Objective: Please see flow sheet for ther ex list. Assessment: Worked on GT in clinic, pt requires MIn/mod assist to safely maneuver FWW, to correct posture and stay close distance to FWW. Pt complied but requires frequent reminders. Plan: Continue with POC. Length of Time (minutes) of Treatment: 30 Minutes EXTENSION SERVICE SPECIALIST IN CHARGE Service Modifier Method I: Divide the number of min of care provided by the EXTENSION SERVICE SPECIALIST IN CHARGE/MISSY by the total min of care provided then multiply by 100. If greater than 11 percent modifier is required. Method II: Divide the total time of care provided to patient by 10 (round to the nearest whole number) and add 1 min. to set the minimum time requirement. If treatment total was 60 min., then 10% of 6 min PT CQ modifier applied: CQ Modifier applied Procedure Charges Therapeutic Exercise 30 minutes: Yes
== END 2025-11-25 23:59 | disposition home or self-care (01) ==
LOC: CPTX 11:30
PROVIDERS: PCP Family Medicine; Referring Provider Nurse Practitioner; Visit Provider Nurse Practitioner
DX: R26.89 Other abnormalities of gait and mobility (principal); G20.B2 Parkinson's disease with dyskinesia, with fluctuations
CPT/HCPCS: 97110; 97162